=== PATIENT | female | born 1950 | race African-American/Black ===

== ENCOUNTER 2018-04-13 13:32 | Inpatient (IN) | payer OTHER, BC ==
--- NOTE | 2018-04-13 13:53 | PDOC ---
History of Present Illness - General History Source: Patient Exam Limitations: No Limitations - History of Present Illness Initial Comments: 04/13/18 14:35 The patient is a 67 year old female, with a significant PMH of diabetes, asthma , hypertension who presents to the emergency department sent in for fever. Patient states she was going to her hyperbaric treatment but was unable to have treatment secondary to her fever. Patient had her dressing changed yesterday. Patient admits to warmth to her left leg. The patient denies chest pain, shortness of breath, headache and dizziness. Denies chills, nausea, vomit, diarrhea and constipation. Denies dysuria, frequency, urgency and hematuria. Allergies: NKA Past surgical history: tubal ligation Social history: No reported alcohol, drug, or cigarette use. PCP: Dr. Castano <Shira Singleton - Last Filed: 04/13/18 15:06> - General History Source: Patient Exam Limitations: No Limitations <Faby Wheeler - Last Filed: 04/14/18 10:43> - General Chief Complaint: Respiratory Stated Complaint: FEVER Time Seen by Provider: 04/13/18 13:52 Past History <Shira Singleton - Last Filed: 04/13/18 15:06> - Past Medical History Asthma: Yes Cancer: No Cardiac Disorders: No CVA: No COPD: No CHF: No Dementia: No Diabetes: Yes GI Disorders: No Disorders: No HTN: No Hypercholesterolemia: No Liver Disease: No Seizures: No Thyroid Disease: No - Surgical History Abdominal Surgery: No Appendectomy: No Cardiac Surgery: No Cholecystectomy: No Lung Surgery: No Neurologic Surgery: No Orthopedic Surgery: No - Suicide/Smoking/Psychosocial Hx Smoking History: Never smoked Have you smoked in the past 12 months: No <Faby Wheeler - Last Filed: 04/14/18 10:43> - Past Medical History Allergies/Adverse Reactions: Allergies Allergy/AdvReac Type Severity Reaction Status Date / Time No Known Allergies Allergy Verified 04/13/18 14:17 Home Medications: Ambulatory Orders Aspirin [Baby Aspirin] 81 mg PO DAILY 10/29/11 Furosemide [Lasix] 20 mg PO DAILY 10/29/11 Montelukast Na [Singulair] 10 mg PO HS 10/29/11 Gabapentin 1 cap PO TID 07/25/13 Amlodipine Besylate [Norvasc -] 5 mg PO BID 09/11/13 Ascorbic Acid [Vitamin C] 250 mg PO DAILY 09/11/13 Cholecalciferol (Vitamin D3) [Vitamin D] 1,000 unit PO DAILY 09/11/13 Docosahexanoic Acid/Epa [Fish Oil Softgel] 1 each PO DAILY 09/11/13 Glyburide 5 mg PO BID 09/11/13 Ibuprofen [Advil -] 400 mg PO QID PRN 09/11/13 Insulin Glargine,Hum.rec.anlog [Lantus Solostar PEN -] 30 units SCJ DAILY Losartan/Hydrochlorothiazide [Losartan-Hctz 100-25 mg Tab] 1 tab PO DAILY Meloxicam [Mobic -] 15 mg PO DAILY 09/11/13 Tramadol HCl 50 mg PO QID PRN 09/11/13 Vitamin B Complex 1 each PO DAILY 09/11/13 oxyCODONE HCL [Roxicodone -] 5 mg PO Q6H PRN 09/11/13 Clonidine 0.1 mg PO HS 12/26/13 Cyclobenzaprine HCl 10 mg PO HS 10/23/14 Review of Systems - Review of Systems Able to Perform ROS?: Yes Comments:: 04/13/18 15:07 ADULT ROS GENERAL/CONSTITUTIONAL: (+) Fever. (+) Chills. No weakness. HEAD, EYES, EARS, NOSE AND THROAT: No change in vision. No ear pain or discharge. No sore throat. CARDIOVASCULAR: No chest pain or shortness of breath. RESPIRATORY: No cough, wheezing, or hemoptysis. GASTROINTESTINAL: No nausea, vomiting, diarrhea or constipation. GENITOURINARY: No dysuria, frequency, or change in urination. MUSCULOSKELETAL: No joint or muscle swelling or pain. No neck or back pain. SKIN: No rash NEUROLOGIC: No headache, vertigo, loss of consciousness, or change in strength/ sensation. ENDOCRINE: No increased thirst. No abnormal weight change. HEMATOLOGIC/LYMPHATIC: No anemia, easy bleeding, or history of blood clots. ALLERGIC/IMMUNOLOGIC: No hives or skin allergy. <Shira Singleton - Last Filed: 04/13/18 15:06> *Physical Exam - Vital Signs Last Vital Signs Temp Pulse Resp BP Pulse Ox 102.9 F H 111 H 18 161/85 100 04/13/18 13:32 04/13/18 13:32 04/13/18 13:32 04/13/18 13:32 04/13/18 13:32 - Physical Exam Comments: 04/13/18 15:08 ADULT PE GENERAL: The patient is in no acute distress. (+) Morbidly obese. HEAD: Normal with no signs of trauma. EYES: PERRLA, EOMI, sclera anicteric, conjunctiva clear. ENT: Ears normal, nares patent, oropharynx clear without exudates. Moist mucous membranes. NECK: Normal range of motion, supple without lymphadenopathy, JVD, or masses. LUNGS: Breath sounds equal, clear to auscultation bilaterally. No wheezes, and no crackles. HEART: (+) Tachycardic but regular rhythm, normal S1 and S2, no rub or gallop. ( +) systolic murmur. ABDOMEN: Soft, nontender, normoactive bowel sounds. No guarding, no rebound. No masses palpable. EXTREMITIES: Normal range of motion, no edema. No clubbing or cyanosis. No erythema, or tenderness. NEUROLOGICAL: Cranial nerves II through XII grossly intact. Normal speech. No focal neurological deficits. MUSCULOSKELETAL: Back non-tender to palpation, no CVA tenderness SKIN: Warm, Dry, normal turgor, no rashes or lesions noted. <Shira Singleton - Last Filed: 04/13/18 15:06> ED Treatment Course - LABORATORY CBC & Chemistry Diagram: 04/13/18 14:24 04/13/18 14:24 <Shira Singleton - Last Filed: 04/13/18 15:06> - LABORATORY CBC & Chemistry Diagram: 04/14/18 06:15 04/14/18 06:15 <Faby Wheeler - Last Filed: 04/14/18 10:43> Medical Decision Making - Critical Care Time Total Critical Care Time (minutes): 60 Critical Care Statement: The care of this patient involved high complexity decision making to prevent further life threatening deterioration of the patient 's condition and/or to evaluate & treat vital organ system(s) failure or risk of failure. - Medical Decision Making Ms Hanley presents from [facility] due to fevers Pt has a h/o DM, HTN, HLD, chronic lower extremity wounds, recurrent UTI She tells me that she began feeling unwell yesterday She noted left ear pain No chest pain, no cough, no shortness of breath No abdominal tenderness No flank pain wounds dressed by son On exam: Pt is febrile Awake and alert Answers questions appropriately Tachycardiac CTA (limited examination) mild suprapubic tenderness to palpation Lower extremity wounds noted, (+) drainage, malodorous, (+) warmth, erythema 04/13/18 15:49 Labs ordered Vanc and Zosyn ordered IVF ordered Tylenol ordered Xray chest and legs ordered Laboratory Tests 12/08/17 04/13/18 04/13/18 17:01 14:24 14:24 WBC 6.8 19.6 H Hgb 9.0 L 8.3 L Hct 28.4 L 26.8 L Plt Count 353 379 INR 1.14 H VBG pH POC VBG pCO2 POC VBG pO2 Mixed VBG HCO3 BUN Creatinine Random Glucose Lactic Acid Creatine Kinase CK-MB (CK-2) Urine Blood Urine Nitrite Ur Leukocyte Esterase Urine WBC (Auto) Urine RBC (Auto) 04/13/18 04/13/18 04/13/18 14:24 14:24 14:24 WBC Hgb Hct Plt Count INR VBG pH 7.36 POC VBG pCO2 42.9 POC VBG pO2 23.3 L Mixed VBG HCO3 23.7 BUN 30 H Creatinine 1.1 Random Glucose 143 H Lactic Acid 0.8 Creatine Kinase 68 CK-MB (CK-2) < 1.0 Urine Blood Urine Nitrite Ur Leukocyte Esterase Urine WBC (Auto) Urine RBC (Auto) 04/13/18 14:50 WBC Hgb Hct Plt Count INR VBG pH POC VBG pCO2 POC VBG pO2 Mixed VBG HCO3 BUN Creatinine Random Glucose Lactic Acid Creatine Kinase CK-MB (CK-2) Urine Blood 2+ H Urine Nitrite Negative Ur Leukocyte Esterase 2+ H Urine WBC (Auto) 79 Urine RBC (Auto) 30 Twelve-lead EKG was performed and reviewed by me. There is normal sinus rhythm witha tachycardiac rate of 112 bpm. The axis is normal. The intervals are normal - pr:162ms, QRS:80ms, QTc:442ms. There are no ST or T wave abnormalities. Sinus tachycardia SIRS Lactate nml No hypotension Source possibly UTI vs cellulitis <Faby Wheeler - Last Filed: 04/14/18 10:43> *DC/Admit/Observation/Transfer - Attestations Scribe Attestion: 04/13/18 15:09 Documentation prepared by Shira Singleton, acting as medical research assistant for Faby Wheeler MD. <Shira Singleton - Last Filed: 04/13/18 15:06> - Discharge Dispostion Decision to Admit order: Yes <Faby Wheeler - Last Filed: 04/14/18 10:43> Diagnosis at time of Disposition: Cellulitis Qualifiers: Site of cellulitis: extremity Site of cellulitis of extremity: lower extremity Laterality: left Qualified Code(s): L03.116 - Cellulitis of left lower limb - Discharge Dispostion Condition at time of disposition: Stable
[2018-04-13] MEDS ORDERED: ACETAMINOPHEN 1000 MG/100 ML VIAL (NON FORMULARY) IVPB ONE (13:58)
[2018-04-13 14:33] VITALS: BMI 53.5
[2018-04-13] MEDS ORDERED: ACETAMINOPHEN INJECTION 100 ML IVPB ONE (14:42)
[2018-04-13 14:43] LABS: EOS % 0.1 % (0-4.5); HEMATOCRIT 26.8 % (32.4-45.2); HEMOGLOBIN 8.3 GM/dL (10.7-15.3); LYMPH % 1.5 % (8-40); MCH 24.7 pg (25.7-33.7); MCHC 30.9 g/dl (32.0-36.0); MEAN CELL VOLUME 79.8 fl (80-96); MEAN PLT VOLUME 7.2 fl (7.5-11.1); MONO % 3.2 % (3.8-10.2); NEUT % 94.2 % (42.8-82.8); PLATELET COUNT 379 K/MM3 (134-434); RBC 3.36 M/mm3 (3.60-5.2); RDW 16.4 % (11.6-15.6); WHITE BLOOD COUNT 19.6 K/mm3 (4.0-10.0)
[2018-04-13 14:44] LABS: VENOUS PC02 42.9 mmHg (38-52); VENOUS PH 7.36 (7.32-7.42); VENOUS PO2 23.3 mmHg (28-48)
[2018-04-13] MEDS ORDERED: SODIUM CHLORIDE 0.9% 1000 ML INFUS.BAG IV SCH (14:45)
[2018-04-13] MEDS ORDERED: VANCOMYCIN 1,500 MG in DEXTROSE 5%-WATER - 500 ML IVPB ONE (14:48)
[2018-04-13] MEDS ORDERED: PIPERACILLIN/TAZOB 4.5 GM 4.5 GM in DEXTROSE 5%-WATER 100 ML IVPB ONE (14:55)
[2018-04-13] MEDS ORDERED: VANCOMYCIN 1 GRAM (PRE-DOCKED) 1,000 MG/250 ML BAG IVPB ONE (14:55)
[2018-04-13] MEDS ORDERED: PIPERACILLIN/TAZOB 4.5 GM 4.5 GM/100 ML BAG IVPB ONE (14:56)
[2018-04-13 14:57] LABS: URINE APPEARANCE SLCLOUDY; URINE BILIRUBIN NEGATIVE (<2.0 mg/dL); URINE COLOR LTYELLOW; URINE GLUCOSE (UA) NEGATIVE (NEGATIVE); URINE KETONE NEGATIVE (NEGATIVE); URINE LEUK ESTERASE 2+ (NEGATIVE); URINE NITRITE NEGATIVE (NEGATIVE); URINE PROTEIN 2+ (NEGATIVE); URINE UROBILINOGEN NEGATIVE mg/dL (0.2-1.0)
[2018-04-13 14:58] LABS: INR 1.14 (0.83-1.09); PROTHROMBIN TIME (PATIENT) 13.5 SEC (9.7-13.0)
[2018-04-13 15:01] LABS: URINE BACTERIA RARE /hpf (NONE SEEN); URINE MUCUS RARE
[2018-04-13 15:01] LABS: ACTIVATED PTT 32.6 SECONDS (25.2-36.5)
[2018-04-13 15:22] LABS: ALBUMIN 3.1 g/dl (3.4-5.0); ALK PHOS 56 U/L (45-117); ANION GAP 9 MMOL/L (8-16); BILIRUBIN,TOTAL 0.3 mg/dL (0.2-1); BLOOD UREA NITROGEN 30 mg/dL (7-18); CALCIUM 8.8 mg/dL (8.5-10.1); CHLORIDE 106 mmol/L (98-107); CO2 24 mmol/L (21-32); CREATININE 1.1 mg/dL (0.55-1.3); GLUCOSE,RANDOM 143 mg/dL (74-106); POTASSIUM 4.7 mmol/L (3.5-5.1); SGOT/AST 10 U/L (15-37); SGPT/ALT 15 U/L (13-61); SODIUM 139 mmol/L (136-145); TOT PROT 8.5 g/dl (6.4-8.2)
[2018-04-13 15:36] LABS: ANISOCYTOSIS 0; MACROCYTOSIS 0; PLATELET ESTIMATE NORMAL
--- NOTE | 2018-04-13 15:38 | EKG ---
Test Reason : Blood Pressure : / mmHG Vent. Rate : 112 BPM Atrial Rate : 112 BPM P-R Int : 162 ms QRS Dur : 080 ms QT Int : 324 ms P-R-T Axes : 066 -03 066 degrees QTc Int : 442 ms POOR DATA QUALITY, INTERPRETATION MAY BE ADVERSELY AFFECTED SINUS TACHYCARDIA SEPTAL INFARCT , AGE UNDETERMINED ABNORMAL ECG NO PREVIOUS ECGS AVAILABLE Confirmed by RYAN ELY, GURMEET ([id number]) on 04/13/2018 3:37:47 PM Referred By: Confirmed By:GURMEET DAVIS MD
[2018-04-13] MEDS ORDERED: SODIUM CHLORIDE 1,000 ML IV STA (16:02)
[2018-04-13] MEDS ORDERED: morphine CARPU-JECT 4 MG/1 ML DISP.SYRIN IVPUSH ONE (16:28)
[2018-04-13] MEDS ORDERED: morphine SULFATE 4 MG/ML VIAL ONE (16:38)
[2018-04-13] MEDS ORDERED: ONDANSETRON 4 MG/2 ML VIAL IVPUSH PRN (17:56)
--- NOTE | 2018-04-13 18:13 | HP ---
Admitting History and Physical - Primary Care Physician PCP: Deshawn Rockwell - Admission Chief Complaint: I was shaking like a leaf History of Present Illness: Mrs Hanley is a pleasant 67 year old female who was sent in from hyperbaric therapy with fevers. She states that she has chronic swelling of both her legs with chronic wounds. She is followed by Dr Cid for this. She was in her normal state of health until last night. She says she began to feel tired and went to lie down, however at this time she became hot and diaphoretic. This continued through the night and into the morning. She went to hyperbaric and there she says she began to shake significantly. Her temperature was taken and she was found to be febrile, she was immediately sent to the ED for evaluation and admission. Currently she says she is feeling better after receiving IV antibiotics. She says that she was lightheaded once yesterday in the morning when she got out of bed, she attributed this to standing up too fast. She did not pass out and it has not recurred. She says she has off and on chest pressure that does not radiate, she does not know how long this has been going on and cannot tell me more about it. She notes shortness of breath with exertion , again she is vague in her description but it sounds like she has this chronically and it might be worse over the past 2-3 days. She says she has chronic leg swelling and wounds and she does not know if it is getting better or not. She also complains of slight burning on urination. She denies coughing, nausea, vomiting, diarrhea, weakness, or malaise. History Source: Patient Limitations to Obtaining History: No Limitations - Past Medical History Cardiovascular: Yes: HTN, Hyperlipdemia Endocrine: Yes: Diabetes Mellitus - Past Surgical History Past Surgical History: Yes: Amputation (L toe) - Smoking History Smoking history: Never smoked Have you smoked in the past 12 months: No - Alcohol/Substance Use Hx Alcohol Use: No History of Substance Use: reports: None - Social History Usual Living Arrangement: Yes: With Child ADL: Family Assistance History of Recent Travel: No Home Medications - Allergies Allergies/Adverse Reactions: Allergies Allergy/AdvReac Type Severity Reaction Status Date / Time No Known Allergies Allergy Verified 04/13/18 14:17 - Home Medications Home Medications: Ambulatory Orders Aspirin [Baby Aspirin] 81 mg PO DAILY 10/29/11 Furosemide [Lasix] 20 mg PO DAILY 10/29/11 Montelukast Na [Singulair] 10 mg PO HS 10/29/11 Gabapentin 1 cap PO TID 07/25/13 Amlodipine Besylate [Norvasc -] 5 mg PO BID 09/11/13 Ascorbic Acid [Vitamin C] 250 mg PO DAILY 09/11/13 Cholecalciferol (Vitamin D3) [Vitamin D] 1,000 unit PO DAILY 09/11/13 Docosahexanoic Acid/Epa [Fish Oil Softgel] 1 each PO DAILY 09/11/13 Glyburide 5 mg PO BID 09/11/13 Ibuprofen [Advil -] 400 mg PO QID PRN 09/11/13 Insulin Glargine,Hum.rec.anlog [Lantus Solostar PEN -] 30 units SCJ DAILY Losartan/Hydrochlorothiazide [Losartan-Hctz 100-25 mg Tab] 1 tab PO DAILY Meloxicam [Mobic -] 15 mg PO DAILY 09/11/13 Tramadol HCl 50 mg PO QID PRN 09/11/13 Vitamin B Complex 1 each PO DAILY 09/11/13 oxyCODONE HCL [Roxicodone -] 5 mg PO Q6H PRN 09/11/13 Clonidine 0.1 mg PO HS 12/26/13 Cyclobenzaprine HCl 10 mg PO HS 10/23/14 Family Disease History - Family Disease History Family Disease History: CA: Father (prostate), Other: Mother (CVA), Brother ( thyroid nodule) Review of Systems Findings/Remarks: Full review of systems obtained, as per HPI and otherwise negative Physical Examination Vital Signs: Vital Signs Temperature 39.4 C H 04/13/18 13:32 Pulse Rate 111 H 04/13/18 13:32 Respiratory Rate 18 04/13/18 13:32 Blood Pressure 161/85 04/13/18 13:32 O2 Sat by Pulse Oximetry (%) 96 04/13/18 16:24 Constitutional: Yes: No Distress, Calm, Obese (morbid), Poor Hygeine Eyes: Yes: Conjunctiva Clear, EOM Intact, PERRL HENT: Yes: Atraumatic, Normocephalic Cardiovascular: Yes: Regular Rate and Rhythm. No: Gallop, Murmur, Rub Respiratory: Yes: Regular, CTA Bilaterally. No: Rales, Rhonchi, Wheezes Gastrointestinal: Yes: Normal Bowel Sounds, Soft. No: Distention, Tenderness Extremities: Yes: Other (ulceration, maladorous) Edema: LLE: 3+, RLE: 3+ Labs: CBC, BMP 04/13/18 14:24 04/13/18 14:24 Imaging - Results Chest X-ray: Report Reviewed, Image Reviewed X-ray: Image Reviewed (? calcification, awaiting official read. Call placed to radiology) Problem List - Problems (1) Sepsis Assessment/Plan: -possible UTI, but most likely from bilateral wounds on legs -ID consult, place on vancomycin and zosyn -hydration with IVF -prn tylenol for fevers -follow up cultures (wound, blood, urine) -monitor on telemetry Code(s): A41.9 - SEPSIS, UNSPECIFIED ORGANISM (2) Cellulitis Assessment/Plan: -with infected chronic wounds -consult wound care -x-ray reviewed, awaiting official read -continue vancomycin and zosyn Code(s): L03.90 - CELLULITIS, UNSPECIFIED Qualifiers: Site of cellulitis: extremity Site of cellulitis of extremity: lower extremity Laterality: left Qualified Code(s): L03.116 - Cellulitis of left lower limb (3) Foot ulcer, left Assessment/Plan: -as above Code(s): L97.529 - NON-PRESSURE CHRONIC ULCER OTH PRT LEFT FOOT W UNSP SEVERITY (4) Diabetes Assessment/Plan: -diabetic diet -levemir 15 units bid (on lantus 30 units at home) -FSBS and SSI Code(s): E11.9 - TYPE 2 DIABETES MELLITUS WITHOUT COMPLICATIONS Qualifiers: Diabetes mellitus type: type 2 Diabetes mellitus medical terminologist insulin use: with longterm use Diabetes mellitus complication status: with skin complications Diabetes mellitus complication detail: with other skin ulcer Qualified Code(s): E11.622 - Type 2 diabetes mellitus with other skin ulcer; Z79.4 - jail (current) use of insulin (5) HTN (hypertension) Assessment/Plan: -continue amlodipine and losartan HCT -monitor for hypotension Code(s): I10 - ESSENTIAL (PRIMARY) HYPERTENSION (6) Chest pressure Assessment/Plan: -suspect atypical chest pain -first set of troponins negative -cardiac enzymes q8h x3 -monitor on telemetry -cardiology consult Code(s): R07.89 - OTHER CHEST PAIN (7) Leg edema Assessment/Plan: -chronic -appears to be lymphedema, however on lasix -will check ECHO for possible heart failure component -holding lasix currently as hydrating -if secondary to CHF, will need to closely monitor IVF Code(s): R60.0 - LOCALIZED EDEMA (8) Morbid obesity Assessment/Plan: -outpatient regimen for weight loss Code(s): E66.01 - MORBID (SEVERE) OBESITY DUE TO EXCESS CALORIES (9) Chronic pain Assessment/Plan: -continue home regimen Code(s): G89.29 - OTHER CHRONIC PAIN Qualifiers: Chronic pain type: chronic pain syndrome Qualified Code(s): G89.4 - Chronic pain syndrome
[2018-04-13] MEDS ORDERED: KETOROLAC TROMETHAMINE 15 MG/ML VIAL IVPUSH ONE (19:22)
[2018-04-13] MEDS ORDERED: KETOROLAC TROMETHAMINE 15 MG/ML VIAL ONE (20:12)
[2018-04-13] MEDS ORDERED: CYCLOBENZAPRINE HCL 5 MG TABLET PO SCH (22:00)
[2018-04-14] MEDS: cloNIDine HCL 0.1 MG TABLET PO SCH (00:32)
[2018-04-14] MEDS: INSULIN (LEVEMIR) 100 UNITS/ML UNITS SQ SCH (00:33)
[2018-04-14] MEDS: GABAPENTIN 100 MG CAPSULE (FP) PO SCH ×3 (00:33→15:26)
[2018-04-14] MEDS: MONTELUKAST NA 10 MG TABLET PO SCH (00:34)
[2018-04-14] MEDS: amLODIPine BESYLATE 5 MG TABLET (FP) PO SCH ×2 (00:34→10:21)
[2018-04-14] MEDS: ACETAMINOPHEN 325 MG TABLET (FP) PO PRN ×2 (00:35→09:04)
[2018-04-14] MEDS ORDERED: CYCLOBENZAPRINE HCL 10 MG TABLET (FP) ONE ×2 (01:07→23:32)
[2018-04-14] MEDS ORDERED: cloNIDine HCL 0.1 MG TABLET ONE ×2 (01:07→23:31)
[2018-04-14] MEDS ORDERED: ACETAMINOPHEN 325 MG TABLET (FP) ONE ×2 (01:07→08:59)
[2018-04-14] MEDS ORDERED: GABAPENTIN 100 MG CAPSULE (FP) ONE ×2 (01:07→23:33)
[2018-04-14] MEDS ORDERED: amLODIPine BESYLATE 5 MG TABLET (FP) ONE ×3 (01:07→23:31)
[2018-04-14] MEDS ORDERED: PIPERACILLIN/TAZOB 4.5 GM 4.5 GM/100 ML BAG IVPB ONE (01:08)
[2018-04-14] MEDS ORDERED: MONTELUKAST NA 10 MG TABLET ONE (01:08)
[2018-04-14] MEDS ORDERED: INSULIN (LEVEMIR) 100 UNITS/ML UNITS SQ ONE ×3 (01:09→23:35)
[2018-04-14] MEDS ORDERED: INSULIN (NOVOLOG) ASPART 100 UNITS/ML 10ML VIAL ONE ×2 (01:09→15:18)
[2018-04-14] MEDS: INSULIN SLIDING SCALE (NOVOLOG) 1 VIAL SQ SCH ×3 (01:34→17:36)
[2018-04-14] MEDS: PIPERACILLIN/TAZOB 4.5 GM 4.5 GM in DEXTROSE 5%-WATER 100 ML IVPB SCH ×4 (01:34→18:57)
[2018-04-14 06:33] LABS: HEMATOCRIT 24.1 % (32.4-45.2); HEMOGLOBIN 7.4 GM/dL (10.7-15.3); MCH 24.7 pg (25.7-33.7); MCHC 30.8 g/dl (32.0-36.0); MEAN PLT VOLUME 7.5 fl (7.5-11.1); PLATELET COUNT 313 K/MM3 (134-434); RBC 3.01 M/mm3 (3.60-5.2); RDW 16.4 % (11.6-15.6); WHITE BLOOD COUNT 20.1 K/mm3 (4.0-10.0)
[2018-04-14 07:09] LABS: ANION GAP 8 MMOL/L (8-16); BLOOD UREA NITROGEN 34 mg/dL (7-18); CALCIUM 8.4 mg/dL (8.5-10.1); CHLORIDE 106 mmol/L (98-107); CO2 25 mmol/L (21-32); CREATININE 1.4 mg/dL (0.55-1.3); GLUCOSE,RANDOM 95 mg/dL (74-106); POTASSIUM 4.5 mmol/L (3.5-5.1); SODIUM 139 mmol/L (136-145)
[2018-04-14] MEDS ORDERED: PATIENT'S OWN MEDICATION (NON-FORMULARY) (Docosahexanoic Acid/Epa [Fish Oil Softgel] 1 EAC PO SCH (10:00)
[2018-04-14] MEDS ORDERED: ENOXAPARIN NA (PORCINE) 40 MG/0.4 ML DISP.SYRIN SQ SCH (10:00)
[2018-04-14] MEDS ORDERED: PATIENT'S OWN MEDICATION (NON-FORMULARY) (Meloxicam 15 MG) PO SCH (10:00)
[2018-04-14] MEDS ORDERED: PATIENT'S OWN MEDICATION (NON-FORMULARY) (Losartan/Hydrochlorothiazide [Losartan-Hctz 100- PO SCH (10:00)
[2018-04-14] MEDS: VITAMIN B COMPLEX W/C COMBO TABLET (FP) PO SCH (10:21)
[2018-04-14] MEDS: ASPIRIN 81 MG CHEWABLE TABLETS PO SCH (10:21)
[2018-04-14] MEDS: ASCORBIC ACID 250 MG TABLET (FP) PO SCH (10:21)
[2018-04-14] MEDS: LOSARTAN 50MG/HCTZ 12.5MG 1 TAB (FP) PO SCH (10:21)
[2018-04-14] MEDS: VANCOMYCIN 1,500 MG in DEXTROSE 5%-WATER - 500 ML IVPB SCH (10:44)
--- NOTE | 2018-04-14 11:11 | ECHO ---
Name: WADE ROUSE Exam:Adult Echocardiogram Study Date: 04/14/2018 07:22 AM Age: 67 yrs Reason For Study: MRSA leg edema chest pain Height: 67 in Weight: 342 lb BSA: 2.5 m2 MMode/2D Measurements & Calculations IVSd: 1.3 cm Ao root diam: 3.0 cm LVIDd: 5.1 cm LA dimension: 4.2 cm LVIDs: 2.8 cm ACS: 1.9 cm LVPWd: 1.2 cm IVSs: 1.5 cm LVPWs: 1.3 cm EDV(Teich): 125.6 ml ESV(Teich): 28.8 ml Doppler Measurements & Calculations MV E max harry: 78.0 cm/sec Ao V2 max: 182.8 cm/sec MV A max harry: 97.0 cm/sec Ao max P.4 mmHg MV E/A: 0.80 Ao V2 mean: 141.3 cm/sec Ao mean P.2 mmHg Ao V2 VTI: 33.3 cm MR max harry: 445.2 cm/sec TR max harry: 302.0 cm/sec MR max P.4 mmHg TR max P.5 mmHg PA V2 max: 151.3 cm/sec Med Peak E' Harry: 5.1 cm/sec PA max P.2 mmHg Med E/e': 15.4 PA V2 mean: 107.6 cm/sec Lat Peak E' Harry: 4.3 cm/sec PA mean P.2 mmHg Lat E/e': 18.2 PA V2 VTI: 26.9 cm Procedure A complete two-dimensional transthoracic echocardiogram was performed (2D, M-mode, Doppler and color flow Doppler). The study was technically difficult with many images being suboptimal in quality. Left Ventricle There is mild concentric left ventricular hypertrophy. The left ventricular ejection fraction is norm al. Ejection Fraction = 60-65%. The left ventricular wall motion is normal. Right Ventricle The right ventricle is not well visualized. The right ventricle is grossly normal size. The right tiffanie tricular systolic function is grossly normal. Atria Normal left and right atrial size and function. Mitral Valve There is no mitral regurgitation noted. Tricuspid Valve There is trace tricuspid regurgitation. There was insufficient TR detected to calculate RV systolic p ressure. Aortic Valve No hemodynamically significant valvular aortic stenosis. No aortic regurgitation is present. Pulmonic Valve There is no pulmonic valvular regurgitation. Great Vessels The aortic root is normal size. Pericardium/Pleura There is no pericardial effusion. Interpretation Summary The study was technically difficult with many images being suboptimal in quality. There is mild concentric left ventricular hypertrophy. The left ventricular ejection fraction is normal. The left ventricular wall motion is normal. The right ventricle is not well visualized. The right ventricle is grossly normal size. The right ventricular systolic function is grossly normal. There is trace tricuspid regurgitation. MD Vadim Pérez 04/14/2018 11:10 AM
[2018-04-14] MEDS: CHOLECALCIFEROL (VITAMIN D3) 1,000 UNIT TABLET (FP) PO SCH (11:23)
--- NOTE | 2018-04-14 11:51 | CON.CARD ---
Cardiology Consult (text) - Consultation Consultation Note: cc: fever hpi: 67 f hx morbid obesity, venous insuff/edema, chronic leg wounds, dm, htn, anemia, here with fever. Being treated by vascular with hyperbaric chamber for leg wounds. Yesterday she felt fever so came to ER. Found to have sepsis, likely from cellulitis of leg. Also yesterday she noticed a central chest heaviness that has decreased today. No sob palps dizzy loc pnd orthopnea. No hx hrt dz. pmh: per hpi psh: tubal ligation social: no tob fam: no premature cad, scd ros: per hpi; no nvd, gib hematuria dysuria muscle pain wt loss meds: Home Medications Medication Instructions Recorded Aspirin [Baby Aspirin] 81 mg PO DAILY 10/29/11 Furosemide [Lasix] 20 mg PO DAILY 10/29/11 Montelukast Na [Singulair] 10 mg PO HS 10/29/11 Gabapentin 1 cap PO TID 07/25/13 Amlodipine Besylate [Norvasc -] 5 mg PO BID 09/11/13 Ascorbic Acid [Vitamin C] 250 mg PO DAILY 09/11/13 Cholecalciferol (Vitamin D3) 1,000 unit PO DAILY 09/11/13 [Vitamin D] Docosahexanoic Acid/Epa [Fish Oil 1 each PO DAILY 09/11/13 Softgel] Glyburide 5 mg PO BID 09/11/13 Ibuprofen [Advil -] 400 mg PO QID PRN 09/11/13 Insulin Glargine,Hum.rec.anlog 30 units SCJ DAILY 09/11/13 [Lantus Solostar PEN -] Losartan/Hydrochlorothiazide 1 tab PO DAILY 09/11/13 [Losartan-Hctz 100-25 mg Tab] Meloxicam [Mobic -] 15 mg PO DAILY 09/11/13 Tramadol HCl 50 mg PO QID PRN 09/11/13 Vitamin B Complex 1 each PO DAILY 09/11/13 oxyCODONE HCL [Roxicodone -] 5 mg PO Q6H PRN 09/11/13 Clonidine 0.1 mg PO HS 12/26/13 Cyclobenzaprine HCl 10 mg PO HS 10/23/14 pe: Vital Signs Period Temp Pulse Resp BP Sys/Petersen Pulse Ox Last 24 Hr 97.6 F-102.9 F 85-111 16-19 139-186/52-85 96-100 nad no jvd rrr s1s2 no mrg cta bl nl eff aaox3 trace le edema, nonpitting edema, chronic stasis changes of skin abd nt nd pos bs no jaundice diaphoresis pos dp pt no carotid bruits Laboratory Last Values WBC 20.1 K/mm3 (4.0-10.0) H 04/14/18 06:15 RBC 3.01 M/mm3 (3.60-5.2) L 04/14/18 06:15 Hgb 7.4 GM/dL (10.7-15.3) L 04/14/18 06:15 Hct 24.1 % (32.4-45.2) L 04/14/18 06:15 MCV 80.0 fl (80-96) 04/14/18 06:15 MCH 24.7 pg (25.7-33.7) L 04/14/18 06:15 MCHC 30.8 g/dl (32.0-36.0) L 04/14/18 06:15 RDW 16.4 % (11.6-15.6) H 04/14/18 06:15 Plt Count 313 K/MM3 (134-434) 04/14/18 06:15 MPV 7.5 fl (7.5-11.1) 04/14/18 06:15 Absolute Neuts (auto) 18.5 K/mm3 (1.5-8.0) H 04/13/18 14:24 Neutrophils % 94.2 % (42.8-82.8) H D 04/13/18 14:24 Neutrophils % (Manual) 90.0 % (42.8-82.8) H 04/13/18 14:24 Band Neutrophils % 5.0 % 04/13/18 14:24 Lymphocytes % 1.5 % (8-40) L D 04/13/18 14:24 Lymphocytes % (Manual) 1.0 % (8-40) L 04/13/18 14:24 Monocytes % 3.2 % (3.8-10.2) L 04/13/18 14:24 Monocytes % (Manual) 2 % (3.8-10.2) L 04/13/18 14:24 Eosinophils % 0.1 % (0-4.5) D 04/13/18 14:24 Eosinophils % (Manual) 0.0 % (0-4.5) 04/13/18 14:24 Basophils % 1.0 % (0-2.0) 04/13/18 14:24 Basophils % (Manual) 0.0 % (0-2.0) 04/13/18 14:24 Myelocytes % (Man) 1 % (0-2) 04/13/18 14:24 Promyelocytes % (Man) 0 % (0-2) 04/13/18 14:24 Blast Cells % (Manual) 0 % (0-0) 04/13/18 14:24 Nucleated RBC % 0 % (0-0) 04/13/18 14:24 Metamyelocytes 1 % (0-2) 04/13/18 14:24 Hypochromia 0 04/13/18 14:24 Platelet Estimate Normal 04/13/18 14:24 Polychromasia 0 04/13/18 14:24 Poikilocytosis 0 04/13/18 14:24 Anisocytosis 0 04/13/18 14:24 Microcytosis 3+ 04/13/18 14:24 Macrocytosis 0 04/13/18 14:24 ESR 118 mm/hr (0-30) H 04/14/18 06:15 PT with INR 13.50 SEC (9.7-13.0) H 04/13/18 14:24 INR 1.14 (0.83-1.09) H 04/13/18 14:24 PTT (Actin FS) 32.6 SECONDS (25.2-36.5) 04/13/18 14:24 VBG pH 7.36 (7.32-7.42) 04/13/18 14:24 POC VBG pCO2 42.9 mmHg (38-52) 04/13/18 14:24 POC VBG pO2 23.3 mmHg (28-48) L 04/13/18 14:24 Mixed VBG HCO3 23.7 meq/L (19-25) 04/13/18 14:24 Sodium 139 mmol/L (136-145) 04/14/18 06:15 Potassium 4.5 mmol/L (3.5-5.1) 04/14/18 06:15 Chloride 106 mmol/L (98-107) 04/14/18 06:15 Carbon Dioxide 25 mmol/L (21-32) 04/14/18 06:15 Anion Gap 8 MMOL/L (8-16) 04/14/18 06:15 BUN 34 mg/dL (7-18) H 04/14/18 06:15 Creatinine 1.4 mg/dL (0.55-1.3) H 04/14/18 06:15 Creat Clearance w eGFR 37.51 (>60) 04/14/18 06:15 POC Glucometer 138.15792 UNITS (80-120) 04/14/18 05:13 Random Glucose 95 mg/dL (74-106) 04/14/18 06:15 Hemoglobin A1c % 6.4 % (4.2-6.3) H 04/14/18 06:15 Lactic Acid 0.8 mmol/L (0.4-2.0) 04/13/18 14:24 Calcium 8.4 mg/dL (8.5-10.1) L 04/14/18 06:15 Phosphorus 3.0 mg/dL (2.5-4.9) 04/14/18 06:15 Magnesium 2.0 mg/dL (1.8-2.4) 04/14/18 06:15 Total Bilirubin 0.3 mg/dL (0.2-1) 04/13/18 14:24 AST 10 U/L (15-37) L 04/13/18 14:24 ALT 15 U/L (13-61) 04/13/18 14:24 Alkaline Phosphatase 56 U/L (45-117) 04/13/18 14:24 Creatine Kinase 126 IU/L (26-192) 04/14/18 06:15 CK-MB (CK-2) < 1.0 ng/mL (0.5-3.6) 04/13/18 14:24 Troponin I 1.62 ng/ml (0.00-0.05) H* 04/14/18 06:15 C-Reactive Protein 16.6 MG/DL (0.00-0.3) H 04/14/18 06:15 Total Protein 8.5 g/dl (6.4-8.2) H 04/13/18 14:24 Albumin 3.1 g/dl (3.4-5.0) L 04/13/18 14:24 Urine Color Ltyellow 04/13/18 14:50 Urine Appearance Slcloudy 04/13/18 14:50 Urine pH 5.0 (5.0-8.0) 04/13/18 14:50 Ur Specific Carroll 1.011 (1.010-1.035) 04/13/18 14:50 Urine Protein 2+ (NEGATIVE) H 04/13/18 14:50 Urine Glucose (UA) Negative (NEGATIVE) 04/13/18 14:50 Urine Ketones Negative (NEGATIVE) 04/13/18 14:50 Urine Blood 2+ (NEGATIVE) H 04/13/18 14:50 Urine Nitrite Negative (NEGATIVE) 04/13/18 14:50 Urine Bilirubin Negative (<2.0 mg/dL) 04/13/18 14:50 Urine Urobilinogen Negative mg/dL (0.2-1.0) 04/13/18 14:50 Ur Leukocyte Esterase 2+ (NEGATIVE) H 04/13/18 14:50 Urine WBC (Auto) 79 /hpf (3-5) 04/13/18 14:50 Urine RBC (Auto) 30 /hpf (0-3) 04/13/18 14:50 Urine Bacteria Rare /hpf (NONE SEEN) 04/13/18 14:50 Urine Mucus Rare 04/13/18 14:50 Blood Type O POSITIVE 04/14/18 09:23 Antibody Screen Negative 04/14/18 09:23 Crossmatch See Detail 04/14/18 09:23 cxr: clear lungs ecg: sr, nl intervals, no ischemic changes echo 03/2018: mild lvh, nl lv/rv, no sig valve path a/p: 67 f hx morbid obesity, venous insuff/edema, chronic leg wounds, dm, htn, anemia, here with fever. sepsis, cellulitis: -abx per PMD, ID venous insuff/le edema: -on lasix at home, holding here due to michelle likely from sepsis htn: -cont home meds anemia: -pt has baseline anemia but hgb dropped into 7's today, no obvious bleeding, may just be dilutional from ivfs she got. getting prbcs, monitor hgb NSTEMI: -trop was normal then repeat increased to 1.6. Possibly just related to sepsis and michelle but she did mention chest pressure and the jump from normal to 1.6 may be consistent with ACS. ECG and echo unremarkable. Already getting asa. Will start hep gtt for 72 hours for nstemi. Will hold off on plavix for now given her hgb in 7s. Monitor hgb. Tele. Trend trops. Started lipitor.
[2018-04-14] MEDS: glyBURIDE 5 MG TABLET (UD) PO SCH ×2 (12:07→17:24)
[2018-04-14] MEDS ORDERED: HEPARIN NA (PORCINE) 5,000 UNITS/ML 1ML VIAL ONE ×3 (12:36→18:54)
[2018-04-14] MEDS ORDERED: HEPARIN INFUSION - 25,000 UNITS/500 ML INFUS.BAG IVPB ONE (12:36)
[2018-04-14] MEDS: HEPARIN - 25,000 UNIT in SODIUM CHLORIDE 495 ML IV SCH (12:44)
[2018-04-14] MEDS: HEPARIN NA (PORCINE) 5,000 UNITS/ML 1ML VIAL IVPUSH PRN ×2 (12:44→18:56)
--- NOTE | 2018-04-14 13:53 | PN ---
Progress Note (short form) - Note Progress Note: ID Consult dictated Bacteremia/ sepsis, likely secondary to skin source UTI Morbid obesity Pending culture results, continue vancomycin/ zosyn
--- NOTE | 2018-04-14 14:55 | CONS ---
DATE OF CONSULTATION: DATE OF DICTATION: 04/14/2018 HISTORY OF PRESENT ILLNESS: The patient is a 67-year-old female evaluated for positive blood cultures. The patient has a history of chronic stasis ulcers for which [facility]. She had been undergoing hyperbaric oxygen treatments. While at the hyperbaric facility, she developed shaking chills and was noted to have fever. She was transferred to the emergency room where blood cultures were obtained. They are now positive for gram-positive cocci in chains and clusters. The patient was empirically given vancomycin and Zosyn. The patient was chronic bilateral lower extremity stasis ulcers with malodorous drainage. She had also complained of some left ear pain. She denies any dysuria or hematuria. She has no complaints of chest pain, shortness of breath, cough, sputum production, vomiting or diarrhea. PAST MEDICAL HISTORY: Positive for morbid obesity, diabetes mellitus, asthma, hypertension. PAST SURGICAL HISTORY: Status post tubal ligation. ALLERGIES: No known allergies. MEDICATIONS: Clonidine, aspirin, Lasix, Singulair, Neurontin, Norvasc, Glyburide, Advil, hydrochlorothiazide, tramadol. SOCIAL HISTORY: She lives at home in the community. She is a nonsmoker. REVIEW OF SYSTEMS: Neurologic: No loss of consciousness, seizure activity or focal weakness. Cardiac: Negative for chest pain or palpitations. Respiratory: Negative for cough or sputum production. Gastrointestinal: Negative for vomiting or diarrhea. Genitourinary: Negative for dysuria or hematuria. LABORATORY DATA: White count 20,000 with left shift, hematocrit 24.1, platelet count 313, creatinine 1.4, lactic acid 0.8, liver enzymes within normal limits. A urinalysis shows 79 white cells. 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 A chest x-ray is negative for infiltrate. PHYSICAL EXAMINATION: General: The patient is awake and alert. She is morbidly obese. In no acute distress. Vital Signs: Temperature 99.9, pulse 76 and regular, blood pressure 171/56, respiratory rate 20 per minute. T-max of 102.5. HEENT:: Sclerae anicteric. Heart: Heart sounds S1, S2. Lungs: Clear. Abdomen: Soft, obese, nontender. Extremities: There is bilateral lower extremity edema and bilateral lower extremity leg ulcers with malodorous serious drainage. The legs are warm. There is chronic venous stasis dermatitis and hyperpigmentation but no erythema is noted. IMPRESSION: 1. Bacteremia/sepsis, likely secondary to skin source. 2. Infected chronic venous stasis ulcers. 3. Urinary tract infection. 4. Marked leukocytosis and fever. PLAN: 1. Await culture results. 2. Antibiotic coverage with vancomycin and Zosyn. 3. Local wound care. 4. Will follow. Thank you for the kind referral. MARYURI MARTIN M.D. [id number]
[2018-04-14] MEDS ORDERED: traMADol HCL 50 MG TABLET ONE (15:20)
[2018-04-14] MEDS: traMADol HCL 50 MG TABLET PO PRN (15:23)
--- NOTE | 2018-04-14 15:33 | PN ---
Progress Note, Physician Chief Complaint: Ms Hanley says her legs are hurting and she did not sleep well last night. Denies cp, sob, n/v. - Current Medication List Current Medications: Active Medications Acetaminophen (Tylenol -) 650 mg PO Q6H PRN PRN Reason: FEVER Last Admin: 04/14/18 09:04 Dose: 650 mg Amlodipine Besylate (Norvasc -) 5 mg PO BID [facility] Last Admin: 04/14/18 10:21 Dose: 5 mg Ascorbic Acid (Vitamin C -) 250 mg PO DAILY [facility] Last Admin: 04/14/18 10:21 Dose: 250 mg Aspirin (Asa -) 81 mg PO DAILY [facility] Last Admin: 04/14/18 10:21 Dose: 81 mg Atorvastatin Calcium (Lipitor -) 40 mg PO HS [facility] Cholecalciferol (Vitamin D3 -) 1,000 unit PO DAILY [facility] Last Admin: 04/14/18 11:23 Dose: 1,000 unit Clonidine (Catapres -) 0.1 mg PO HS [facility] Last Admin: 04/14/18 00:32 Dose: 0.1 mg Cyclobenzaprine HCl (Flexeril -) 10 mg PO HS [facility] Gabapentin (Neurontin -) 100 mg PO TID [facility] Last Admin: 04/14/18 00:33 Dose: 100 mg Glyburide (Diabeta -) 5 mg PO BIDAC [facility] Last Admin: 04/14/18 12:07 Dose: Not Given HCTZ/Losartan Potassium (Hyzaar -) 2 tab PO DAILY [facility] Last Admin: 04/14/18 10:21 Dose: 2 tab Heparin Sodium (Porcine) (Heparin -) 1,000 unit IVPUSH PRN PRN PRN Reason: Heparin Heparin Sodium (Porcine) (Heparin -) 5,000 unit IVPUSH PRN PRN PRN Reason: Heparin Last Admin: 04/14/18 12:44 Dose: 5,000 unit Vancomycin HCl 1,500 mg/ (Dextrose) 500 mls @ 166.667 mls/hr IVPB Q12H [facility]; Protocol Last Admin: 04/14/18 10:44 Dose: 166.667 mls/hr Piperacillin Sod/Tazobactam (Sod 4.5 gm/ Dextrose) 100 mls @ 200 mls/hr IVPB Q8H-IV [facility]; Protocol Last Admin: 11/01/18 14:15 Dose: 200 mls/hr Heparin Sodium (Porcine) 25, (000 unit/ Sodium Chloride) 500 mls @ 20 mls/hr IV TITR [facility]; Protocol Last Admin: 04/14/18 12:44 Dose: 1,000 unit/hr, 20 mls/hr Insulin Aspart (Novolog Vial Sliding Scale -) 1 vial SQ ACHS [facility]; Protocol Last Admin: 04/14/18 01:34 Dose: 2 unit Insulin Detemir (Levemir Vial) 15 units SQ 0700,2200 [facility] Last Admin: 04/14/18 00:33 Dose: 15 unit Montelukast Sodium (Singulair -) 10 mg PO HS [facility] Last Admin: 04/14/18 00:34 Dose: 10 mg Multivitamins (Total B With C -) 1 each PO DAILY [facility] Last Admin: 04/14/18 10:21 Dose: 1 each Non-Formulary Medication (Docosahexanoic Acid/Epa [Fish Oil Softgel]) 1 each PO DAILY [facility] Non-Formulary Medication (Meloxicam) 15 mg PO DAILY [facility] Ondansetron HCl (Zofran Injection) 4 mg IVPUSH Q6H PRN PRN Reason: NAUSEA Tramadol HCl (Ultram -) 50 mg PO Q6H PRN PRN Reason: PAIN 4-6 - Objective Vital Signs: Vital Signs Temperature 37.7 C H 04/14/18 14:29 Pulse Rate 82 04/14/18 14:29 Respiratory Rate 18 04/14/18 14:29 Blood Pressure 155/51 L 04/14/18 14:29 O2 Sat by Pulse Oximetry (%) 96 04/14/18 14:29 Constitutional: Yes: No Distress, Calm, Obese Cardiovascular: Yes: Regular Rate and Rhythm. No: Gallop, Murmur, Rub Respiratory: Yes: Regular, CTA Bilaterally. No: Rales, Rhonchi, Wheezes Gastrointestinal: Yes: Normal Bowel Sounds, Soft. No: Distention, Tenderness Extremities: Yes: WNL Edema: No Labs: CBC, BMP 04/14/18 06:15 04/14/18 06:15 INR, PTT INR 1.14 (0.83-1.09) H 04/13/18 14:24 Problem List - Problems (1) Sepsis Code(s): A41.9 - SEPSIS, UNSPECIFIED ORGANISM (2) Cellulitis Code(s): L03.90 - CELLULITIS, UNSPECIFIED Qualifiers: Site of cellulitis: extremity Site of cellulitis of extremity: lower extremity Laterality: left Qualified Code(s): L03.116 - Cellulitis of left lower limb (3) Foot ulcer, left Code(s): L97.529 - NON-PRESSURE CHRONIC ULCER OTH PRT LEFT FOOT W UNSP SEVERITY (4) Diabetes Code(s): E11.9 - TYPE 2 DIABETES MELLITUS WITHOUT COMPLICATIONS Qualifiers: Diabetes mellitus type: type 2 Diabetes mellitus long lines operator insulin use: with long lines operator use Diabetes mellitus complication status: with skin complications Diabetes mellitus complication detail: with other skin ulcer Qualified Code(s): E11.622 - Type 2 diabetes mellitus with other skin ulcer; Z79.4 - detention (current) use of insulin (5) HTN (hypertension) Code(s): I10 - ESSENTIAL (PRIMARY) HYPERTENSION (6) Leg edema Code(s): R60.0 - LOCALIZED EDEMA (7) Morbid obesity Code(s): E66.01 - MORBID (SEVERE) OBESITY DUE TO EXCESS CALORIES (8) Chronic pain Code(s): G89.29 - OTHER CHRONIC PAIN Qualifiers: Chronic pain type: chronic pain syndrome Qualified Code(s): G89.4 - Chronic pain syndrome (9) NSTEMI (non-ST elevated myocardial infarction) Code(s): I21.4 - NON-ST ELEVATION (NSTEMI) MYOCARDIAL INFARCTION Assessment/Plan (1) Sepsis Assessment/Plan: -most likely secondary to UTI -with positive blood cultures -case d/w ID -continue vancomycin and zosyn -continue IVF Code(s): A41.9 - SEPSIS, UNSPECIFIED ORGANISM (2) Cellulitis Assessment/Plan: -wound care consulted and awaiting recommendations -continue vancomcyin secondary to h/o MRSA -continue zosyn since patient is diabetic and needs pseudomonas coverage Code(s): L03.90 - CELLULITIS, UNSPECIFIED Qualifiers: Site of cellulitis: extremity Site of cellulitis of extremity: lower extremity Laterality: left Qualified Code(s): L03.116 - Cellulitis of left lower limb (3) Foot ulcer, left Assessment/Plan: -as above Code(s): L97.529 - NON-PRESSURE CHRONIC ULCER OTH PRT LEFT FOOT W UNSP SEVERITY (4) Diabetes Assessment/Plan: -diabetic diet -continue levemir 15 units bid -continue FSBS and SSI -may need adjustment, will monitor FSBS and determine insulin coverage needed -may need increased coverage in the short term secondary to stress and antibiotics being in dextrose Code(s): E11.9 - TYPE 2 DIABETES MELLITUS WITHOUT COMPLICATIONS Qualifiers: Diabetes mellitus type: type 2 Diabetes mellitus skilled nursing insulin use: with long lines operator use Diabetes mellitus complication status: with skin complications Diabetes mellitus complication detail: with other skin ulcer Qualified Code(s): E11.622 - Type 2 diabetes mellitus with other skin ulcer; Z79.4 - detention (current) use of insulin (5) HTN (hypertension) Assessment/Plan: -continue amlodipine and losartan HCT -monitor Code(s): I10 - ESSENTIAL (PRIMARY) HYPERTENSION (6) NSTEMI Assessment/Plan: -troponin positive -case d/w Dr Pérez -will start on heparin gtt -medical management Code(s): R07.89 - OTHER CHEST PAIN (7) Leg edema Assessment/Plan: -ECHO reviewed, no sign of CHF -leg edema secondary to lymphedema -holding lasix secondary to sepsis Code(s): R60.0 - LOCALIZED EDEMA (8) Morbid obesity Assessment/Plan: -outpatient regimen for weight loss Code(s): E66.01 - MORBID (SEVERE) OBESITY DUE TO EXCESS CALORIES (9) Chronic pain Assessment/Plan: -continue home regimen Code(s): G89.29 - OTHER CHRONIC PAIN Qualifiers: Chronic pain type: chronic pain syndrome Qualified Code(s): G89.4 - Chronic pain syndrome (10) Anemia -chronic, but suspect some aspect of dilution -however with NSTEMI, will transfuse patient -monitor
--- NOTE | 2018-04-14 15:55 | CONSULT ---
<Luis Barton - Last Filed: 04/14/18 15:26> - Consultation REQUESTING PROVIDER: CONSULT REQUEST: We have been asked to surgically evaluate this patient for bilateral leg ulcers PCP:Kalia Dumont MD HISTORY OF PRESENT ILLNESS: 67yo F with long history of bilateral venous stasis ulcer, pt is known to Dr. Khan and the wound care center. Pt was supposed to be seen yesterday in clinic but was sent the the ED for fevers. Pt denies any major changes in her wounds. Has been using silver aginate and compression dressings. PMHx: DM, HTN, Home Medications Medication Instructions Recorded Aspirin [Baby Aspirin] 81 mg PO DAILY 10/29/11 Furosemide [Lasix] 20 mg PO DAILY 10/29/11 Montelukast Na [Singulair] 10 mg PO HS 10/29/11 Gabapentin 1 cap PO TID 07/25/13 Amlodipine Besylate [Norvasc -] 5 mg PO BID 09/11/13 Ascorbic Acid [Vitamin C] 250 mg PO DAILY 09/11/13 Cholecalciferol (Vitamin D3) 1,000 unit PO DAILY 09/11/13 [Vitamin D] Docosahexanoic Acid/Epa [Fish Oil 1 each PO DAILY 09/11/13 Softgel] Glyburide 5 mg PO BID 09/11/13 Ibuprofen [Advil -] 400 mg PO QID PRN 09/11/13 Insulin Glargine,Hum.rec.anlog 30 units SCJ DAILY 09/11/13 [Lantus Solostar PEN -] Losartan/Hydrochlorothiazide 1 tab PO DAILY 09/11/13 [Losartan-Hctz 100-25 mg Tab] Meloxicam [Mobic -] 15 mg PO DAILY 09/11/13 Tramadol HCl 50 mg PO QID PRN 09/11/13 Vitamin B Complex 1 each PO DAILY 09/11/13 oxyCODONE HCL [Roxicodone -] 5 mg PO Q6H PRN 09/11/13 Clonidine 0.1 mg PO HS 12/26/13 Cyclobenzaprine HCl 10 mg PO HS 10/23/14 Allergies Allergy/AdvReac Type Severity Reaction Status Date / Time No Known Allergies Allergy Verified 04/13/18 14:17 PHYSICAL EXAM: GENERAL: Awake, alert, and fully oriented, in no acute distress. HEAD: Normal with no signs of trauma. EYES: PERRL, sclera anicteric, conjunctiva clear. NECK: Normal ROM, LOWER EXTREMITIES: 2+ pulses, warm, well-perfused. RLE shows three ulcers on anterior aspect nearly circumferential, no erythema serous discharge. LLE shows 10x 8cm ulcer on medial calf, 2cm x 3cm ulcer lateral aspect, 3 x 3cm ulcer on heel, no erythema and serous discharge. NEUROLOGICAL: Normal speech, gait not observed. PSYCH: Cooperative. Good eye contact. Appropriate mood and affect. SKIN: Warm, dry, normal turgor, no rashes or lesions noted. Vital Signs Temperature 99.8 F H 04/14/18 14:29 Pulse Rate 82 04/14/18 14:29 Respiratory Rate 18 04/14/18 14:29 Blood Pressure 155/51 L 04/14/18 14:29 O2 Sat by Pulse Oximetry (%) 96 04/14/18 14:29 Lab Results WBC 20.1 K/mm3 (4.0-10.0) H 04/14/18 06:15 RBC 3.01 M/mm3 (3.60-5.2) L 04/14/18 06:15 Hgb 7.4 GM/dL (10.7-15.3) L 04/14/18 06:15 Hct 24.1 % (32.4-45.2) L 04/14/18 06:15 MCV 80.0 fl (80-96) 04/14/18 06:15 MCHC 30.8 g/dl (32.0-36.0) L 04/14/18 06:15 RDW 16.4 % (11.6-15.6) H 04/14/18 06:15 Plt Count 313 K/MM3 (134-434) 04/14/18 06:15 Sodium 139 mmol/L (136-145) 04/14/18 06:15 Potassium 4.5 mmol/L (3.5-5.1) 04/14/18 06:15 Chloride 106 mmol/L (98-107) 04/14/18 06:15 Carbon Dioxide 25 mmol/L (21-32) 04/14/18 06:15 Anion Gap 8 MMOL/L (8-16) 04/14/18 06:15 BUN 34 mg/dL (7-18) H 04/14/18 06:15 Creatinine 1.4 mg/dL (0.55-1.3) H 04/14/18 06:15 Random Glucose 95 mg/dL (74-106) 04/14/18 06:15 Calcium 8.4 mg/dL (8.5-10.1) L 04/14/18 06:15 Blood Type O POSITIVE 04/14/18 10:26 Antibody Screen Negative 04/14/18 09:23 INR 1.14 (0.83-1.09) H 04/13/18 14:24 Assessment: Bilateral venous stasis ulcers Plan: -silver aginate and compression dressings with deidra bandages to legs bilaterally -elevate legs -follow up with Dr. Khan in wound care clinic as outpatient <Flavio Khan - Last Filed: 04/15/18 08:36> - Consultation REQUESTING PROVIDER: CONSULT REQUEST: We have been asked to surgically evaluate this patient for ( specify). PCP:Trinh Tijerina MD HISTORY OF PRESENT ILLNESS: PMHx: PSHx: Home Medications Medication Instructions Recorded Aspirin [Baby Aspirin] 81 mg PO DAILY 10/29/11 Furosemide [Lasix] 20 mg PO DAILY 10/29/11 Montelukast Na [Singulair] 10 mg PO HS 10/29/11 Gabapentin 1 cap PO TID 07/25/13 Amlodipine Besylate [Norvasc -] 5 mg PO BID 09/11/13 Ascorbic Acid [Vitamin C] 250 mg PO DAILY 09/11/13 Cholecalciferol (Vitamin D3) 1,000 unit PO DAILY 09/11/13 [Vitamin D] Docosahexanoic Acid/Epa [Fish Oil 1 each PO DAILY 09/11/13 Softgel] Glyburide 5 mg PO BID 09/11/13 Ibuprofen [Advil -] 400 mg PO QID PRN 09/11/13 Insulin Glargine,Hum.rec.anlog 30 units SCJ DAILY 09/11/13 [Lantus Solostar PEN -] Losartan/Hydrochlorothiazide 1 tab PO DAILY 09/11/13 [Losartan-Hctz 100-25 mg Tab] Meloxicam [Mobic -] 15 mg PO DAILY 09/11/13 Tramadol HCl 50 mg PO QID PRN 09/11/13 Vitamin B Complex 1 each PO DAILY 09/11/13 oxyCODONE HCL [Roxicodone -] 5 mg PO Q6H PRN 09/11/13 Clonidine 0.1 mg PO HS 12/26/13 Cyclobenzaprine HCl 10 mg PO HS 10/23/14 Allergies Allergy/AdvReac Type Severity Reaction Status Date / Time No Known Allergies Allergy Verified 04/13/18 14:17 REVIEW OF SYSTEMS: CONSTITUTIONAL: Absent: fever, chills, diaphoresis, generalized weakness, malaise, loss of appetite, weight change CARDIOVASCULAR: Absent: chest pain, syncope, palpitations, irregular heart rate, lightheadedness , peripheral edema RESPIRATORY: Absent: cough, shortness of breath, dyspnea with exertion, wheezing, stridor, hemoptysis GASTROINTESTINAL: Absent: abdominal pain, abdominal distension, nausea, vomiting, diarrhea, constipation, melena, hematochezia GENITOURINARY: Absent: dysuria, frequency, urgency, hesitancy, hematuria, flank pain, genital pain MUSCULOSKELETAL: Absent: myalgia, arthralgia, joint swelling, back pain, neck pain SKIN: Absent: rash, itching, pallor HEMATOLOGIC/IMMUNOLOGIC: Absent: easy bleeding, easy bruising, lymphadenopathy NEUROLOGIC: Absent: headache, focal weakness, paresthesias, dizziness, unsteady gait, seizure, mental status changes, bladder or bowel incontinence PSYCHIATRIC: Absent: anxiety, depression, suicidal or homicidal ideation, hallucinations. PHYSICAL EXAM: GENERAL: Awake, alert, and fully oriented, in no acute distress. HEAD: Normal with no signs of trauma. EYES: PERRL, sclera anicteric, conjunctiva clear. NECK: Normal ROM, supple without lymphadenopathy, JVD, or masses. LUNGS: Clear to auscultation bilat anteriorly. No wheezes, and no crackles. No accessory muscle use. HEART: Regular rate and rhythm. No murmurs ABDOMEN: Soft, nontender, not distended, normoactive bowel sounds, no guarding, no rebound, no masses. No organomegaly. MUSCULOSKELETAL: Normal ROM at all joints. No bony deformities or tenderness. No CVA tenderness. UPPER EXTREMITIES: 2+ pulses, warm, well-perfused. No cyanosis. Cap refill <2 seconds. No peripheral edema. LOWER EXTREMITIES: 2+ pulses, warm, well-perfused. No calf tenderness. No peripheral edema. NEUROLOGICAL: Normal speech, gait not observed. PSYCH: Cooperative. Good eye contact. Appropriate mood and affect. SKIN: Warm, dry, normal turgor, no rashes or lesions noted. Vital Signs Temperature 98.1 F 04/15/18 04:51 Pulse Rate 91 H 04/15/18 04:51 Respiratory Rate 20 04/15/18 04:51 Blood Pressure 144/54 L 04/15/18 04:51 O2 Sat by Pulse Oximetry (%) 98 04/15/18 04:51 Lab Results WBC 14.8 K/mm3 (4.0-10.0) H 04/15/18 06:25 RBC 3.42 M/mm3 (3.60-5.2) L 04/15/18 06:25 Hgb 8.6 GM/dL (10.7-15.3) L 04/15/18 06:25 Hct 27.6 % (32.4-45.2) L 04/15/18 06:25 MCV 80.7 fl (80-96) 04/15/18 06:25 MCHC 31.1 g/dl (32.0-36.0) L 04/15/18 06:25 RDW 15.9 % (11.6-15.6) H 04/15/18 06:25 Plt Count 288 K/MM3 (134-434) 04/15/18 06:25 Sodium 134 mmol/L (136-145) L 04/15/18 06:25 Potassium 3.9 mmol/L (3.5-5.1) 04/15/18 06:25 Chloride 102 mmol/L (98-107) 04/15/18 06:25 Carbon Dioxide 24 mmol/L (21-32) 04/15/18 06:25 Anion Gap 9 MMOL/L (8-16) 04/15/18 06:25 BUN 26 mg/dL (7-18) H 04/15/18 06:25 Creatinine 1.2 mg/dL (0.55-1.3) 04/15/18 06:25 Random Glucose 200 mg/dL (74-106) H 04/15/18 06:25 Calcium 7.9 mg/dL (8.5-10.1) L 04/15/18 06:25 Blood Type O POSITIVE 04/14/18 10:26 Antibody Screen Negative 04/14/18 09:23 INR 1.14 (0.83-1.09) H 04/13/18 14:24 Patient well known to me. Chronic morbid obesity, lymphedema and stasis dermatitis with chronic ulceration of both ankles. She also has developed a new ulcer on the left heel over the past 2 months. She has been receiving HBO treatments and was found to have shaking chills and was sent to the ER. Her wound appear unchanged with surface exudate. Wound care with Alginate dressings and compression wraps ordered. Leg elevation ordered but patient does not comply.
[2018-04-14] MEDS ORDERED: ATORVASTATIN CA 40 MG TABLET (FP) ONE (23:33)
[2018-04-15] MEDS: INSULIN (LEVEMIR) 100 UNITS/ML UNITS SQ SCH ×3 (00:16→21:46)
[2018-04-15] MEDS: INSULIN SLIDING SCALE (NOVOLOG) 1 VIAL SQ SCH ×5 (00:16→22:02)
[2018-04-15] MEDS ORDERED: INSULIN REGULAR HUMAN 100 UNITS/ML *VIAL ONE (00:21)
[2018-04-15] MEDS: cloNIDine HCL 0.1 MG TABLET PO SCH ×2 (00:25→21:47)
[2018-04-15] MEDS: amLODIPine BESYLATE 5 MG TABLET (FP) PO SCH ×3 (00:25→21:47)
[2018-04-15] MEDS: CYCLOBENZAPRINE HCL 10 MG TABLET (FP) PO SCH ×2 (00:25→21:47)
[2018-04-15] MEDS: GABAPENTIN 100 MG CAPSULE (FP) PO SCH ×4 (00:25→21:47)
[2018-04-15] MEDS: MONTELUKAST NA 10 MG TABLET PO SCH ×2 (00:25→21:48)
[2018-04-15] MEDS: ATORVASTATIN CA 40 MG TABLET (FP) PO SCH ×2 (00:25→21:47)
[2018-04-15] MEDS: VANCOMYCIN 1,500 MG in DEXTROSE 5%-WATER - 500 ML IVPB SCH ×2 (00:25→12:06)
[2018-04-15] MEDS ORDERED: ACETAMINOPHEN 325 MG TABLET (FP) ONE (00:32)
[2018-04-15] MEDS ORDERED: traMADol HCL 50 MG TABLET ONE (00:33)
[2018-04-15] MEDS: traMADol HCL 50 MG TABLET PO PRN ×2 (00:45→22:00)
[2018-04-15] MEDS: ACETAMINOPHEN 325 MG TABLET (FP) PO PRN (00:45)
[2018-04-15] MEDS: PIPERACILLIN/TAZOB 4.5 GM 4.5 GM in DEXTROSE 5%-WATER 100 ML IVPB SCH ×3 (02:10→18:28)
[2018-04-15 06:39] LABS: BASO % 0.3 % (0-2.0); EOS % 0.5 % (0-4.5); HEMATOCRIT 27.6 % (32.4-45.2); HEMOGLOBIN 8.6 GM/dL (10.7-15.3); LYMPH % 9.1 % (8-40); MCH 25.1 pg (25.7-33.7); MCHC 31.1 g/dl (32.0-36.0); MEAN CELL VOLUME 80.7 fl (80-96); MEAN PLT VOLUME 7.8 fl (7.5-11.1); MONO % 6.6 % (3.8-10.2); NEUT % 83.5 % (42.8-82.8); PLATELET COUNT 288 K/MM3 (134-434); RBC 3.42 M/mm3 (3.60-5.2); RDW 15.9 % (11.6-15.6); WHITE BLOOD COUNT 14.8 K/mm3 (4.0-10.0)
[2018-04-15] MEDS ORDERED: GABAPENTIN 100 MG CAPSULE (FP) ONE (06:48)
[2018-04-15 07:15] LABS: ANION GAP 9 MMOL/L (8-16); BLOOD UREA NITROGEN 26 mg/dL (7-18); CALCIUM 7.9 mg/dL (8.5-10.1); CHLORIDE 102 mmol/L (98-107); CO2 24 mmol/L (21-32); CREATININE 1.2 mg/dL (0.55-1.3); GLUCOSE,RANDOM 200 mg/dL (74-106); PHOSPHOROUS 3.4 mg/dL (2.5-4.9); POTASSIUM 3.9 mmol/L (3.5-5.1); SODIUM 134 mmol/L (136-145)
--- NOTE | 2018-04-15 07:50 | PN ---
Progress Note, Physician Chief Complaint: C/O Left leg pain no c/o chest pain or SOB - Current Medication List Current Medications: Active Medications Acetaminophen (Tylenol -) 650 mg PO Q6H PRN PRN Reason: FEVER Last Admin: 04/15/18 00:45 Dose: 650 mg Amlodipine Besylate (Norvasc -) 5 mg PO BID [facility] Last Admin: 04/15/18 00:25 Dose: 5 mg Ascorbic Acid (Vitamin C -) 250 mg PO DAILY [facility] Last Admin: 04/14/18 10:21 Dose: 250 mg Aspirin (Asa -) 81 mg PO DAILY [facility] Last Admin: 04/14/18 10:21 Dose: 81 mg Atorvastatin Calcium (Lipitor -) 40 mg PO HS [facility] Last Admin: 04/15/18 00:25 Dose: 40 mg Cholecalciferol (Vitamin D3 -) 1,000 unit PO DAILY [facility] Last Admin: 04/14/18 11:23 Dose: 1,000 unit Clonidine (Catapres -) 0.1 mg PO HS [facility] Last Admin: 04/15/18 00:25 Dose: 0.1 mg Cyclobenzaprine HCl (Flexeril -) 10 mg PO HS [facility] Last Admin: 04/15/18 00:25 Dose: 10 mg Gabapentin (Neurontin -) 100 mg PO TID [facility] Last Admin: 04/15/18 06:53 Dose: 100 mg Glyburide (Diabeta -) 5 mg PO BIDAC [facility] Last Admin: 04/14/18 17:24 Dose: Not Given HCTZ/Losartan Potassium (Hyzaar -) 2 tab PO DAILY [facility] Last Admin: 04/14/18 10:21 Dose: 2 tab Heparin Sodium (Porcine) (Heparin -) 1,000 unit IVPUSH PRN PRN PRN Reason: Heparin Last Admin: 04/14/18 18:56 Dose: 1,000 unit Heparin Sodium (Porcine) (Heparin -) 5,000 unit IVPUSH PRN PRN PRN Reason: Heparin Last Admin: 04/14/18 12:44 Dose: 5,000 unit Vancomycin HCl 1,500 mg/ (Dextrose) 500 mls @ 166.667 mls/hr IVPB Q12H [facility]; Protocol Last Admin: 04/15/18 00:25 Dose: 166.667 mls/hr Piperacillin Sod/Tazobactam (Sod 4.5 gm/ Dextrose) 100 mls @ 200 mls/hr IVPB Q8H-IV [facility]; Protocol Last Admin: 04/15/18 02:10 Dose: 200 mls/hr Heparin Sodium (Porcine) 25, (000 unit/ Sodium Chloride) 500 mls @ 20 mls/hr IV TITR [facility]; Protocol Last Titration: 04/14/18 18:52 Dose: 1,100 unit/hr, 22 mls/hr Insulin Aspart (Novolog Vial Sliding Scale -) 1 vial SQ ACHS [facility]; Protocol Last Admin: 04/15/18 00:16 Dose: 2 unit Insulin Detemir (Levemir Vial) 15 units SQ 0700,2200 [facility] Last Admin: 04/15/18 00:16 Dose: 15 unit Montelukast Sodium (Singulair -) 10 mg PO HS [facility] Last Admin: 04/15/18 00:25 Dose: 10 mg Multivitamins (Total B With C -) 1 each PO DAILY [facility] Last Admin: 04/14/18 10:21 Dose: 1 each Non-Formulary Medication (Docosahexanoic Acid/Epa [Fish Oil Softgel]) 1 each PO DAILY [facility] Non-Formulary Medication (Meloxicam) 15 mg PO DAILY [facility] Ondansetron HCl (Zofran Injection) 4 mg IVPUSH Q6H PRN PRN Reason: NAUSEA Tramadol HCl (Ultram -) 50 mg PO Q6H PRN PRN Reason: PAIN 4-6 Last Admin: 04/15/18 00:45 Dose: 50 mg - Objective Vital Signs: Vital Signs Temperature 98.1 F 04/15/18 04:51 Pulse Rate 91 H 04/15/18 04:51 Respiratory Rate 20 04/15/18 04:51 Blood Pressure 144/54 L 04/15/18 04:51 O2 Sat by Pulse Oximetry (%) 98 04/15/18 04:51 Elderly F not in distress c/o body pain HEENT: MM moist , anemia, PERRLA EOMI NECK: No JVd No Bruit CHEST: Minimal basal crepts CVS: S1S2 R no m/g/r ABD: Obese non tender BS +, Last BM yesterday EXT & BACK: Extensive edema, foul smelling ulcers Left > Rt Venous stasuis chnages [employer]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 Non focal DERM: B/L infected wounds Labs: CBC, BMP 04/15/18 06:25 04/15/18 06:25 INR, PTT INR 1.14 (0.83-1.09) H 04/13/18 14:24 Problem List - Problems (1) Cellulitis Assessment/Plan: Extensive B/L LE cellulitis present with elevated TWBC Lactic acid and fever suggestive of Sepsis grew poly microbial on Zosyn and Vancomycin as per ID recommendation Code(s): L03.90 - CELLULITIS, UNSPECIFIED Qualifiers: Site of cellulitis: extremity Site of cellulitis of extremity: lower extremity Laterality: left Qualified Code(s): L03.116 - Cellulitis of left lower limb (2) Sepsis Assessment/Plan: Improving Extensive B/L LE cellulitis present with elevated TWBC now trending down Lactic acid and fever suggestive of Sepsis grew poly microbial on Zosyn and Vancomycin as per ID recommendation Code(s): A41.9 - SEPSIS, UNSPECIFIED ORGANISM (3) NSTEMI (non-ST elevated myocardial infarction) Assessment/Plan: Elevated Troponin I multiple CAD risk factors most likely Demand Ischemia cont current regimen on Heparin infusion denies any chest pain F/U cardiology recommendations Code(s): I21.4 - NON-ST ELEVATION (NSTEMI) MYOCARDIAL INFARCTION (4) Diabetes Assessment/Plan: T2 with Microangiopathy CKD on Levimir and correction dose Lispro and oral meds will F/U HBa!C optimize Glycemic control. 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 insulin use: with usp use Diabetes mellitus complication status: with skin complications Diabetes mellitus complication detail: with other skin ulcer Qualified Code(s): E11.622 - Type 2 diabetes mellitus with other skin ulcer; Z79.4 - terminal gauger (current) use of insulin (5) Anemia Assessment/Plan: Chrnic H/H is table Code(s): D64.9 - ANEMIA, UNSPECIFIED (6) HTN (hypertension) Assessment/Plan: Now Well controlled cont all home meds Code(s): I10 - ESSENTIAL (PRIMARY) HYPERTENSION (7) Morbid obesity Assessment/Plan: Morbidly obese BMI 53 will F/U nutritional assessment as out patient on DC Code(s): E66.01 - MORBID (SEVERE) OBESITY DUE TO EXCESS CALORIES (8) Chronic pain Code(s): G89.29 - OTHER CHRONIC PAIN Qualifiers: Chronic pain type: chronic pain syndrome Qualified Code(s): G89.4 - Chronic pain syndrome (9) COPD (chronic obstructive pulmonary disease) Assessment/Plan: On symbicort cont same at present stable Code(s): J44.9 - CHRONIC OBSTRUCTIVE PULMONARY DISEASE, UNSPECIFIED (10) Chronic pain Assessment/Plan: Gabapentin and Tramadol Code(s): G89.29 - OTHER CHRONIC PAIN
[2018-04-15] MEDS: glyBURIDE 5 MG TABLET (UD) PO SCH ×2 (08:27→18:28)
[2018-04-15] MEDS: HEPARIN NA (PORCINE) 5,000 UNITS/ML 1ML VIAL IVPUSH PRN ×2 (09:31→23:00)
[2018-04-15] MEDS ORDERED: HEPARIN NA (PORCINE) 5,000 UNITS/ML 1ML VIAL ONE (09:32)
[2018-04-15] MEDS ORDERED: INSULIN (LEVEMIR) 100 UNITS/ML UNITS SQ ONE (10:01)
[2018-04-15] MEDS: ASPIRIN 81 MG CHEWABLE TABLETS PO SCH (10:56)
[2018-04-15] MEDS: ASCORBIC ACID 250 MG TABLET (FP) PO SCH (10:57)
[2018-04-15] MEDS: VITAMIN B COMPLEX W/C COMBO TABLET (FP) PO SCH (10:57)
[2018-04-15] MEDS: CHOLECALCIFEROL (VITAMIN D3) 1,000 UNIT TABLET (FP) PO SCH (10:57)
[2018-04-15] MEDS ORDERED: HEPARIN INFUSION - 25,000 UNITS/500 ML INFUS.BAG IVPB ONE (11:42)
--- NOTE | 2018-04-15 11:49 | PN ---
Progress Note (short form) - Note Progress Note: s: no cp sob palps dizzy o: Vital Signs Period Temp Pulse Resp BP Sys/Petersen Pulse Ox Last 24 Hr 98.1 F-101.6 F 82-91 18-22 144-185/49-55 96-99 nad no jvd rrr s1s2 no mrg cta bl nl eff aaox3 trace le edema, nonpitting edema, chronic stasis changes of skin abd nt nd pos bs no jaundice diaphoresis Current Medications Generic Name Dose Route Start Last Admin Trade Name Freq PRN Reason Stop Dose Admin Acetaminophen 650 mg 04/13/18 17:56 04/15/18 00:45 Tylenol - PO 650 mg Q6H PRN Administration FEVER Amlodipine Besylate 5 mg 04/13/18 22:00 04/15/18 10:56 Norvasc - PO 5 mg BID [facility] Administration Ascorbic Acid 250 mg 04/14/18 10:00 04/15/18 10:57 Vitamin C - PO 250 mg DAILY [facility] Administration Aspirin 81 mg 04/14/18 10:00 04/15/18 10:56 Asa - PO 81 mg DAILY [facility] Administration Atorvastatin Calcium 40 mg 04/14/18 22:00 04/15/18 00:25 Lipitor - PO 40 mg HS [facility] Administration Budesonide/Formoterol Fumarate 2 puff 04/15/18 22:00 Symbicort 160/4.5mcg - IH BID [facility] Cholecalciferol 1,000 unit 04/14/18 10:00 04/15/18 10:57 Vitamin D3 - PO 1,000 unit DAILY [facility] Administration Clonidine 0.1 mg 04/13/18 22:00 04/15/18 00:25 Catapres - PO 0.1 mg HS [facility] Administration Cyclobenzaprine HCl 10 mg 04/14/18 22:00 04/15/18 00:25 Flexeril - PO 10 mg HS [facility] Administration Gabapentin 100 mg 04/13/18 22:00 04/15/18 06:53 Neurontin - PO 100 mg TID [facility] Administration Glyburide 5 mg 04/14/18 07:00 04/15/18 08:27 Diabeta - PO 5 mg BIDAC [facility] Administration HCTZ/Losartan Potassium 2 tab 04/14/18 10:00 04/14/18 10:21 Hyzaar - PO 2 tab DAILY [facility] Administration Heparin Sodium (Porcine) 1,000 unit 04/14/18 11:44 04/14/18 18:56 Heparin - IVPUSH 1,000 unit PRN PRN Administration Heparin Heparin Sodium (Porcine) 5,000 unit 04/14/18 11:44 04/15/18 09:31 Heparin - IVPUSH 5,000 unit PRN PRN Administration Heparin Vancomycin HCl 1,500 mg/ 500 mls @ 166.667 mls/hr 04/14/18 10:00 04/15/18 00: 25 Dextrose IVPB 166.667 mls/hr Q12H [facility] Administration Protocol Piperacillin Sod/Tazobactam 100 mls @ 200 mls/hr 04/13/18 22:00 04/15/18 11: 46 Sod 4.5 gm/ Dextrose IVPB 200 mls/hr Q8H-IV [facility] Administration Protocol Heparin Sodium (Porcine) 25, 500 mls @ 20 mls/hr 04/14/18 11:45 04/15/18 09: 30 000 unit/ Sodium Chloride IV 1,250 unit/hr TITR [facility] 25 mls/hr Titration Protocol 1,000 UNIT/HR Insulin Aspart 1 vial 04/13/18 22:00 04/15/18 00:16 Novolog Vial Sliding Scale - SQ 2 unit ACHS [facility] Administration Protocol Insulin Detemir 15 units 04/13/18 22:00 04/15/18 00:16 Levemir Vial SQ 15 unit 0700,2200 [facility] Administration Montelukast Sodium 10 mg 04/13/18 22:00 04/15/18 00:25 Singulair - PO 10 mg HS [facility] Administration Multivitamins 1 each 04/14/18 10:00 04/15/18 10:57 Total B With C - PO 1 each DAILY [facility] Administration Non-Formulary Medication 1 each 04/14/18 10:00 Docosahexanoic Acid/Epa [Fish Oil Softgel] PO DAILY [facility] Non-Formulary Medication 15 mg 04/14/18 10:00 Meloxicam PO DAILY [facility] Ondansetron HCl 4 mg 04/13/18 17:56 Zofran Injection IVPUSH Q6H PRN NAUSEA Tramadol HCl 50 mg 04/13/18 18:03 04/15/18 00:45 Ultram - PO 50 mg Q6H PRN Administration PAIN 4-6 Laboratory Last Values WBC 14.8 K/mm3 (4.0-10.0) H 04/15/18 06:25 RBC 3.42 M/mm3 (3.60-5.2) L 04/15/18 06:25 Hgb 8.6 GM/dL (10.7-15.3) L 04/15/18 06:25 Hct 27.6 % (32.4-45.2) L 04/15/18 06:25 MCV 80.7 fl (80-96) 04/15/18 06:25 MCH 25.1 pg (25.7-33.7) L 04/15/18 06:25 MCHC 31.1 g/dl (32.0-36.0) L 04/15/18 06:25 RDW 15.9 % (11.6-15.6) H 04/15/18 06:25 Plt Count 288 K/MM3 (134-434) 04/15/18 06:25 MPV 7.8 fl (7.5-11.1) 04/15/18 06:25 Absolute Neuts (auto) 12.3 K/mm3 (1.5-8.0) H 04/15/18 06:25 Neutrophils % 83.5 % (42.8-82.8) H 04/15/18 06:25 Neutrophils % (Manual) 90.0 % (42.8-82.8) H 04/13/18 14:24 Band Neutrophils % 5.0 % 04/13/18 14:24 Lymphocytes % 9.1 % (8-40) D 04/15/18 06:25 Lymphocytes % (Manual) 1.0 % (8-40) L 04/13/18 14:24 Monocytes % 6.6 % (3.8-10.2) D 04/15/18 06:25 Monocytes % (Manual) 2 % (3.8-10.2) L 04/13/18 14:24 Eosinophils % 0.5 % (0-4.5) D 04/15/18 06:25 Eosinophils % (Manual) 0.0 % (0-4.5) 04/13/18 14:24 Basophils % 0.3 % (0-2.0) 04/15/18 06:25 Basophils % (Manual) 0.0 % (0-2.0) 04/13/18 14:24 Myelocytes % (Man) 1 % (0-2) 04/13/18 14:24 Promyelocytes % (Man) 0 % (0-2) 04/13/18 14:24 Blast Cells % (Manual) 0 % (0-0) 04/13/18 14:24 Nucleated RBC % 0 % (0-0) 04/15/18 06:25 Metamyelocytes 1 % (0-2) 04/13/18 14:24 Hypochromia 0 04/13/18 14:24 Platelet Estimate Normal 04/13/18 14:24 Polychromasia 0 04/13/18 14:24 Poikilocytosis 0 04/13/18 14:24 Anisocytosis 0 04/13/18 14:24 Microcytosis 3+ 04/13/18 14:24 Macrocytosis 0 04/13/18 14:24 ESR 118 mm/hr (0-30) H 04/14/18 06:15 PT with INR 13.50 SEC (9.7-13.0) H 04/13/18 14:24 INR 1.14 (0.83-1.09) H 04/13/18 14:24 PTT (Actin FS) 37.4 SECONDS (25.2-36.5) H 04/15/18 08:20 VBG pH 7.36 (7.32-7.42) 04/13/18 14:24 POC VBG pCO2 42.9 mmHg (38-52) 04/13/18 14:24 POC VBG pO2 23.3 mmHg (28-48) L 04/13/18 14:24 Mixed VBG HCO3 23.7 meq/L (19-25) 04/13/18 14:24 Sodium 134 mmol/L (136-145) L 04/15/18 06:25 Potassium 3.9 mmol/L (3.5-5.1) 04/15/18 06:25 Chloride 102 mmol/L (98-107) 04/15/18 06:25 Carbon Dioxide 24 mmol/L (21-32) 04/15/18 06:25 Anion Gap 9 MMOL/L (8-16) 04/15/18 06:25 BUN 26 mg/dL (7-18) H 04/15/18 06:25 Creatinine 1.2 mg/dL (0.55-1.3) 04/15/18 06:25 Creat Clearance w eGFR 44.81 (>60) 04/15/18 06:25 POC Glucometer 162.29488 UNITS (80-120) 04/15/18 00:10 Random Glucose 200 mg/dL (74-106) H 04/15/18 06:25 Hemoglobin A1c % 6.4 % (4.2-6.3) H 04/14/18 06:15 Lactic Acid 0.8 mmol/L (0.4-2.0) 04/13/18 14:24 Calcium 7.9 mg/dL (8.5-10.1) L 04/15/18 06:25 Phosphorus 3.4 mg/dL (2.5-4.9) 04/15/18 06:25 Magnesium 2.0 mg/dL (1.8-2.4) 04/15/18 06:25 Total Bilirubin 0.3 mg/dL (0.2-1) 04/13/18 14:24 AST 10 U/L (15-37) L 04/13/18 14:24 ALT 15 U/L (13-61) 04/13/18 14:24 Alkaline Phosphatase 56 U/L (45-117) 04/13/18 14:24 Creatine Kinase 165 IU/L (26-192) 04/14/18 11:45 Creatine Kinase Index 0.6 % (0.0-5.0) 04/14/18 11:45 CK-MB (CK-2) < 1.0 ng/mL (0.5-3.6) 04/14/18 11:45 Troponin I 1.38 ng/ml (0.00-0.05) H* 04/14/18 11:45 C-Reactive Protein 16.6 MG/DL (0.00-0.3) H 04/14/18 06:15 Total Protein 8.5 g/dl (6.4-8.2) H 04/13/18 14:24 Albumin 3.1 g/dl (3.4-5.0) L 04/13/18 14:24 Urine Color Ltyellow 04/13/18 14:50 Urine Appearance Slcloudy 04/13/18 14:50 Urine pH 5.0 (5.0-8.0) 04/13/18 14:50 Ur Specific [place] 1.011 (1.010-1.035) 04/13/18 14:50 Urine Protein 2+ (NEGATIVE) H 04/13/18 14:50 Urine Glucose (UA) Negative (NEGATIVE) 04/13/18 14:50 Urine Ketones Negative (NEGATIVE) 04/13/18 14:50 Urine Blood 2+ (NEGATIVE) H 04/13/18 14:50 Urine Nitrite Negative (NEGATIVE) 04/13/18 14:50 Urine Bilirubin Negative (<2.0 mg/dL) 04/13/18 14:50 Urine Urobilinogen Negative mg/dL (0.2-1.0) 04/13/18 14:50 Ur Leukocyte Esterase 2+ (NEGATIVE) H 04/13/18 14:50 Urine WBC (Auto) 79 /hpf (3-5) 04/13/18 14:50 Urine RBC (Auto) 30 /hpf (0-3) 04/13/18 14:50 Urine Bacteria Rare /hpf (NONE SEEN) 04/13/18 14:50 Urine Mucus Rare 04/13/18 14:50 Blood Type O POSITIVE 04/14/18 10:26 Antibody Screen Negative 04/14/18 09:23 Crossmatch See Detail 04/14/18 09:23 cxr: clear lungs ecg: sr, nl intervals, no ischemic changes echo 03/2018: mild lvh, nl lv/rv, no sig valve path a/p: 67 f hx morbid obesity, venous insuff/edema, chronic leg wounds, dm, htn, anemia, here with fever. sepsis, cellulitis: -abx per PMD, ID venous insuff/le edema: -on lasix at home, holding here due to michelle likely from sepsis htn: -cont home meds anemia: -pt has baseline anemia but hgb dropped into 7's 04/14, no obvious bleeding, may just be dilutional from ivfs she got. got prbcs, hgb 8s today. NSTEMI: -trop was normal then repeat increased to 1.6 (now trending down). Possibly just related to sepsis and michelle but she did mention chest pressure and the jump from normal to 1.6 may be consistent with ACS. ECG and echo unremarkable. Already getting asa. Will start hep gtt for 72 hours for nstemi. Will hold off on plavix for now given her anemia requiring prbcs. Monitor hgb. Tele. Trend trops. Started lipitor. -ischemic eval after acute issues resolve
[2018-04-15] MEDS: HEPARIN - 25,000 UNIT in SODIUM CHLORIDE 495 ML IV SCH (12:01)
[2018-04-15] MEDS: LOSARTAN 50MG/HCTZ 12.5MG 1 TAB (FP) PO SCH (12:06)
[2018-04-15] MEDS ORDERED: INSULIN (NOVOLOG) ASPART 100 UNITS/ML 10ML VIAL ONE (16:02)
[2018-04-15] MEDS ORDERED: DEXTROSE 5%-WATER 100 ML IVPB ONE (21:12)
[2018-04-15] MEDS: CEFTRIAXONE 2 GM in DEXTROSE 5%-WATER 100 ML IVPB SCH (21:40)
--- NOTE | 2018-04-15 21:50 | PN ---
Progress Note (short form) - Note Progress Note: Complains of bilateral leg pains at sites of ulcers Still febrile WBC improved Blood c/s prelim grp B strep Urine c/s Enterobacter Awake in bed Morbidly obese Cor S1S2 Lungs clear Abdomen obese, soft, non tender + bilateral LE ulcers, malodorous drainage Bacteremia/ sepsis, likely secondary to skin source UTI Morbid obesity Pending final culture results, empiric ceftriaxone
[2018-04-15] MEDS: BUDESONIDE/FORMETEROL FUMARATE 160/4.5 mcg INHALER IH SCH (23:01)
[2018-04-16] MEDS: INSULIN SLIDING SCALE (NOVOLOG) 1 VIAL SQ SCH ×4 (06:43→22:05)
[2018-04-16] MEDS: INSULIN (LEVEMIR) 100 UNITS/ML UNITS SQ SCH ×2 (06:43→22:04)
[2018-04-16] MEDS: GABAPENTIN 100 MG CAPSULE (FP) PO SCH ×3 (06:44→22:09)
[2018-04-16] MEDS: glyBURIDE 5 MG TABLET (UD) PO SCH ×2 (06:46→16:38)
[2018-04-16 06:59] LABS: BASO % 0.5 % (0-2.0); EOS % 1.9 % (0-4.5); HEMATOCRIT 26.2 % (32.4-45.2); HEMOGLOBIN 8.8 GM/dL (10.7-15.3); MCH 26.9 pg (25.7-33.7); MCHC 33.7 g/dl (32.0-36.0); MEAN CELL VOLUME 79.9 fl (80-96); MEAN PLT VOLUME 7.9 fl (7.5-11.1); MONO % 9.3 % (3.8-10.2); NEUT % 75.3 % (42.8-82.8); PLATELET COUNT 320 K/MM3 (134-434); RBC 3.28 M/mm3 (3.60-5.2); RDW 15.7 % (11.6-15.6); WHITE BLOOD COUNT 10.1 K/mm3 (4.0-10.0)
[2018-04-16 07:14] LABS: ALK PHOS 60 U/L (45-117); ANION GAP 8 MMOL/L (8-16); BILIRUBIN,TOTAL 0.5 mg/dL (0.2-1); BLOOD UREA NITROGEN 21 mg/dL (7-18); CALCIUM 7.7 mg/dL (8.5-10.1); CHLORIDE 103 mmol/L (98-107); CO2 25 mmol/L (21-32); GLUCOSE,RANDOM 128 mg/dL (74-106); POTASSIUM 4.3 mmol/L (3.5-5.1); SGOT/AST 17 U/L (15-37); SGPT/ALT 14 U/L (13-61); SODIUM 136 mmol/L (136-145); TOT PROT 6.8 g/dl (6.4-8.2)
--- NOTE | 2018-04-16 07:59 | PN ---
Progress Note, Physician Chief Complaint: No new complaints , C/O Left leg pain - Current Medication List Current Medications: Active Medications Acetaminophen (Tylenol -) 650 mg PO Q6H PRN PRN Reason: FEVER Last Admin: 04/15/18 00:45 Dose: 650 mg Amlodipine Besylate (Norvasc -) 5 mg PO BID [facility] Last Admin: 04/15/18 21:47 Dose: 5 mg Ascorbic Acid (Vitamin C -) 250 mg PO DAILY [facility] Last Admin: 04/15/18 10:57 Dose: 250 mg Aspirin (Asa -) 81 mg PO DAILY [facility] Last Admin: 04/15/18 10:56 Dose: 81 mg Atorvastatin Calcium (Lipitor -) 40 mg PO HS [facility] Last Admin: 04/15/18 21:47 Dose: 40 mg Budesonide/Formoterol Fumarate (Symbicort 160/4.5mcg -) 2 puff IH BID [facility] Last Admin: 04/15/18 23:01 Dose: 2 puff Cholecalciferol (Vitamin D3 -) 1,000 unit PO DAILY [facility] Last Admin: 04/15/18 10:57 Dose: 1,000 unit Clonidine (Catapres -) 0.1 mg PO HS [facility] Last Admin: 04/15/18 21:47 Dose: 0.1 mg Cyclobenzaprine HCl (Flexeril -) 10 mg PO HS [facility] Last Admin: 04/15/18 21:47 Dose: 10 mg Gabapentin (Neurontin -) 100 mg PO TID [facility] Last Admin: 04/16/18 06:44 Dose: 100 mg Glyburide (Diabeta -) 5 mg PO BIDAC [facility] Last Admin: 04/16/18 06:46 Dose: 5 mg HCTZ/Losartan Potassium (Hyzaar -) 2 tab PO DAILY [facility] Last Admin: 04/15/18 12:06 Dose: 2 tab Heparin Sodium (Porcine) (Heparin -) 1,000 unit IVPUSH PRN PRN PRN Reason: Heparin Last Admin: 04/15/18 23:00 Dose: 1,000 unit Heparin Sodium (Porcine) (Heparin -) 5,000 unit IVPUSH PRN PRN PRN Reason: Heparin Last Admin: 04/15/18 09:31 Dose: 5,000 unit Heparin Sodium (Porcine) 25, (000 unit/ Sodium Chloride) 500 mls @ 20 mls/hr IV TITR [facility]; Protocol Last Titration: 04/16/18 00:12 Dose: 1,350 unit/hr, 27 mls/hr Ceftriaxone Sodium 2 gm/ (Dextrose) 100 mls @ 100 mls/hr IVPB DAILY [facility]; Protocol Last Admin: 04/15/18 21:40 Dose: 100 mls/hr Influenza Virus Vaccine Quadrival (Flulaval Quad 5232-7023) 60 mcg IM .ONCE ONE Stop: 04/16/18 10:01 Insulin Aspart (Novolog Vial Sliding Scale -) 1 vial SQ ACHS [facility]; Protocol Last Admin: 04/16/18 06:43 Dose: 2 unit Insulin Detemir (Levemir Vial) 15 units SQ 0700,2200 [facility] Last Admin: 04/16/18 06:43 Dose: Not Given Montelukast Sodium (Singulair -) 10 mg PO HS [facility] Last Admin: 04/15/18 21:48 Dose: 10 mg Multivitamins (Total B With C -) 1 each PO DAILY [facility] Last Admin: 04/15/18 10:57 Dose: 1 each Non-Formulary Medication (Docosahexanoic Acid/Epa [Fish Oil Softgel]) 1 each PO DAILY [facility] Non-Formulary Medication (Meloxicam) 15 mg PO DAILY [facility] Ondansetron HCl (Zofran Injection) 4 mg IVPUSH Q6H PRN PRN Reason: NAUSEA Tramadol HCl (Ultram -) 50 mg PO Q6H PRN PRN Reason: PAIN 4-6 Last Admin: 04/15/18 22:00 Dose: 50 mg - Objective Vital Signs: Vital Signs Temperature 98.6 F 04/16/18 06:00 Pulse Rate 82 04/16/18 06:00 Respiratory Rate 18 04/16/18 06:00 Blood Pressure 137/66 04/16/18 06:00 O2 Sat by Pulse Oximetry (%) 96 04/15/18 21:00 Elderly F not in distress c/o body pain HEENT: MM moist , anemia, PERRLA EOMI NECK: No JVd No Bruit CHEST: Minimal basal crepts CVS: S1S2 R no m/g/r ABD: Obese non tender BS +, Last BM yesterday EXT & BACK: Extensive edema, foul smelling ulcers Left > Rt Venous stasuis chnages [employer]: AOX3 Non focal DERM: B/L infected wounds Labs: CBC, BMP 11/03/18 05:30 04/16/18 05:30 INR, PTT INR 1.14 (0.83-1.09) H 04/13/18 14:24 Problem List - Problems (1) Cellulitis Assessment/Plan: Extensive B/L LE cellulitis present with elevated TWBC Lactic acid and fever suggestive of Sepsis grew poly microbial on Zosyn and Vancomycin as per ID recommendation Code(s): L03.90 - CELLULITIS, UNSPECIFIED Qualifiers: Site of cellulitis: extremity Site of cellulitis of extremity: lower extremity Laterality: left Qualified Code(s): L03.116 - Cellulitis of left lower limb (2) Sepsis Assessment/Plan: Improving Extensive B/L LE cellulitis present with elevated TWBC now trending down Lactic acid and fever suggestive of Sepsis grew poly microbial on Zosyn and Vancomycin as per ID recommendation Code(s): A41.9 - SEPSIS, UNSPECIFIED ORGANISM (3) NSTEMI (non-ST elevated myocardial infarction) Assessment/Plan: Elevated Troponin I multiple CAD risk factors most likely Demand Ischemia cont current regimen on Heparin infusion denies any chest pain F/U cardiology recommendations Code(s): I21.4 - NON-ST ELEVATION (NSTEMI) MYOCARDIAL INFARCTION (4) Diabetes Assessment/Plan: T2 with Microangiopathy CKD on Levimir and correction dose Lispro and oral meds will F/U HBa!C optimize Glycemic control. Code(s): E11.9 - TYPE 2 DIABETES MELLITUS WITHOUT COMPLICATIONS Qualifiers: Diabetes mellitus type: type 2 Diabetes mellitus detention insulin use: with terminal worker use Diabetes mellitus complication status: with skin complications Diabetes mellitus complication detail: with other skin ulcer Qualified Code(s): E11.622 - Type 2 diabetes mellitus with other skin ulcer; Z79.4 - terminal operator (current) use of insulin (5) Anemia Assessment/Plan: Chrnic H/H is table Code(s): D64.9 - ANEMIA, UNSPECIFIED (6) HTN (hypertension) Assessment/Plan: Now Well controlled cont all home meds Code(s): I10 - ESSENTIAL (PRIMARY) HYPERTENSION (7) Morbid obesity Assessment/Plan: Morbidly obese BMI 53 will F/U nutritional assessment as out patient on DC Code(s): E66.01 - MORBID (SEVERE) OBESITY DUE TO EXCESS CALORIES (8) Chronic pain Code(s): G89.29 - OTHER CHRONIC PAIN Qualifiers: Chronic pain type: chronic pain syndrome Qualified Code(s): G89.4 - Chronic pain syndrome (9) COPD (chronic obstructive pulmonary disease) Assessment/Plan: On symbicort cont same at present stable Code(s): J44.9 - CHRONIC OBSTRUCTIVE PULMONARY DISEASE, UNSPECIFIED (10) Chronic pain Assessment/Plan: Gabapentin and Tramadol Code(s): G89.29 - OTHER CHRONIC PAIN
[2018-04-16] MEDS ORDERED: DEXTROSE 5%-WATER 100 ML IVPB ONE (08:49)
[2018-04-16] MEDS: ACETAMINOPHEN 325 MG TABLET (FP) PO PRN (09:10)
[2018-04-16] MEDS: traMADol HCL 50 MG TABLET PO PRN ×3 (09:10→22:08)
[2018-04-16] MEDS: amLODIPine BESYLATE 5 MG TABLET (FP) PO SCH ×2 (09:10→22:09)
[2018-04-16] MEDS: CHOLECALCIFEROL (VITAMIN D3) 1,000 UNIT TABLET (FP) PO SCH (09:10)
[2018-04-16] MEDS: ASPIRIN 81 MG CHEWABLE TABLETS PO SCH (09:10)
[2018-04-16] MEDS: CEFTRIAXONE 2 GM in DEXTROSE 5%-WATER 100 ML IVPB SCH (09:11)
[2018-04-16] MEDS: HEPARIN NA (PORCINE) 5,000 UNITS/ML 1ML VIAL IVPUSH PRN (09:14)
[2018-04-16] MEDS ORDERED: PT OWN MED DRAWER 7, Y5N ONE (09:37)
[2018-04-16] MEDS: LOSARTAN 50MG/HCTZ 12.5MG 1 TAB (FP) PO SCH (09:38)
[2018-04-16] MEDS: BUDESONIDE/FORMETEROL FUMARATE 160/4.5 mcg INHALER IH SCH ×2 (09:38→22:10)
[2018-04-16] MEDS: ASCORBIC ACID 250 MG TABLET (FP) PO SCH (09:38)
[2018-04-16] MEDS: HEPARIN - 25,000 UNIT in SODIUM CHLORIDE 495 ML IV SCH ×2 (09:39→16:35)
[2018-04-16] MEDS: VITAMIN B COMPLEX W/C COMBO TABLET (FP) PO SCH (09:39)
[2018-04-16] MEDS ORDERED: FLU VACCINE QUAD 60 MCG/0.5 ML (MDV 18-19) IM ONE (10:00)
--- NOTE | 2018-04-16 11:07 | PN ---
Progress Note (short form) - Note Progress Note: feels better today dressings intact no complaints chronic constipation Vital Signs Period Temp Pulse Resp BP Sys/Petersen Pulse Ox Last 24 Hr 98.2 F-99.7 F 80-92 16-18 137-195/63-66 96-98 cor-rrr lungs clear abd soft,nt ext dressings intact CBC, BMP 04/16/18 05:30 04/16/18 05:30 Microbiology 04/13/18 14:50 Urine - Urine Clean Catch Urine Culture - Final Enterobacter Cloacae 04/13/18 14:24 Blood - Peripheral Venous Blood Culture - Preliminary Strep Agalactiae Group B 04/13/18 14:24 Blood - Peripheral Venous Blood Culture - Preliminary Beta Hemolytic Strep 04/13/18 14:35 Nasopharyngeal Swab Influenza Types A,B Antigen - Final 04/13/18 14:35 Nasopharyngeal Swab - Final echo grossly normal technically limited Laboratory Tests 04/14/18 04/14/18 06:15 06:15 ESR 118 H C-Reactive Protein 16.6 H a/p group B strep bacteremia infected leg ulcers enterobacter UTI continue ceftriaxone repeat blood cultures wound care per surgery- she has been going to [facility] as well as outpt have asked nurse to call me so I can see her legs when dressing change is done
--- NOTE | 2018-04-16 11:31 | PN ---
Progress Note (short form) - Note Progress Note: Progress Note: s: no cp sob palps dizzy o: Vital Signs Period Temp Pulse Resp BP Sys/Petersen Pulse Ox Last 24 Hr 98.2 F-99.7 F 80-92 16-20 137-195/63-66 96-98 nad no jvd rrr s1s2 no mrg cta bl nl eff aaox3 trace le edema, nonpitting edema, chronic stasis changes of skin abd nt nd pos bs no jaundice diaphoresis Current Medications Acetaminophen (Tylenol -) 650 mg PO Q6H PRN PRN Reason: FEVER Last Admin: 04/16/18 09:10 Dose: 650 mg Amlodipine Besylate (Norvasc -) 5 mg PO BID [facility] Last Admin: 04/16/18 09:10 Dose: 5 mg Ascorbic Acid (Vitamin C -) 250 mg PO DAILY [facility] Last Admin: 04/16/18 09:38 Dose: 250 mg Aspirin (Asa -) 81 mg PO DAILY [facility] Last Admin: 04/16/18 09:10 Dose: 81 mg Atorvastatin Calcium (Lipitor -) 40 mg PO HS [facility] Last Admin: 04/15/18 21:47 Dose: 40 mg Budesonide/Formoterol Fumarate (Symbicort 160/4.5mcg -) 2 puff IH BID [facility] Last Admin: 04/16/18 09:38 Dose: 2 puff Cholecalciferol (Vitamin D3 -) 1,000 unit PO DAILY [facility] Last Admin: 04/16/18 09:10 Dose: 1,000 unit Clonidine (Catapres -) 0.1 mg PO HS [facility] Last Admin: 04/15/18 21:47 Dose: 0.1 mg Cyclobenzaprine HCl (Flexeril -) 10 mg PO HS [facility] Last Admin: 04/15/18 21:47 Dose: 10 mg Gabapentin (Neurontin -) 100 mg PO TID [facility] Last Admin: 04/16/18 06:44 Dose: 100 mg Glyburide (Diabeta -) 5 mg PO BIDAC [facility] Last Admin: 04/16/18 06:46 Dose: 5 mg HCTZ/Losartan Potassium (Hyzaar -) 2 tab PO DAILY [facility] Last Admin: 04/16/18 09:38 Dose: 2 tab Heparin Sodium (Porcine) (Heparin -) 1,000 unit IVPUSH PRN PRN PRN Reason: Heparin Last Admin: 04/15/18 23:00 Dose: 1,000 unit Heparin Sodium (Porcine) (Heparin -) 5,000 unit IVPUSH PRN PRN PRN Reason: Heparin Last Admin: 04/16/18 09:14 Dose: 5,000 unit Heparin Sodium (Porcine) 25, (000 unit/ Sodium Chloride) 500 mls @ 20 mls/hr IV TITR [facility]; Protocol Last Admin: 04/16/18 09:39 Dose: 1,450 unit/hr, 29 mls/hr Ceftriaxone Sodium 2 gm/ (Dextrose) 100 mls @ 100 mls/hr IVPB DAILY [facility]; Protocol Last Admin: 04/16/18 09:11 Dose: 100 mls/hr Insulin Aspart (Novolog Vial Sliding Scale -) 1 vial SQ ACHS [facility]; Protocol Last Admin: 04/16/18 06:43 Dose: 2 unit Insulin Detemir (Levemir Vial) 15 units SQ 0700,2200 [facility] Last Admin: 04/16/18 06:43 Dose: Not Given Montelukast Sodium (Singulair -) 10 mg PO HS [facility] Last Admin: 04/15/18 21:48 Dose: 10 mg Multivitamins (Total B With C -) 1 each PO DAILY [facility] Last Admin: 04/16/18 09:39 Dose: Not Given Non-Formulary Medication (Docosahexanoic Acid/Epa [Fish Oil Softgel]) 1 each PO DAILY [facility] Non-Formulary Medication (Meloxicam) 15 mg PO DAILY [facility] Ondansetron HCl (Zofran Injection) 4 mg IVPUSH Q6H PRN PRN Reason: NAUSEA Tramadol HCl (Ultram -) 50 mg PO Q6H PRN PRN Reason: PAIN 4-6 Last Admin: 04/16/18 09:10 Dose: 50 mg cxr: clear lungs ecg: sr, nl intervals, no ischemic changes echo 03/2018: mild lvh, nl lv/rv, no sig valve path a/p: 67 f hx morbid obesity, venous insuff/edema, chronic leg wounds, dm, htn, anemia, here with fever. sepsis, cellulitis: -abx per PMD, ID venous insuff/le edema: -on lasix at home, held here due to michelle likely from sepsis, Cr stable now. cont holding htn: -cont home meds anemia: -pt has baseline anemia but hgb dropped into 7's 04/14, no obvious bleeding, may just be dilutional from ivfs she got. got prbcs, hgb 8s today. NSTEMI: -trop was normal then repeat increased to 1.6 (now trending down). Possibly just related to sepsis and michelle but she did mention chest pressure and the jump from normal to 1.6 may be consistent with ACS. ECG and echo unremarkable. Already getting asa. cont hep gtt for 72 hours for nstemi. hold off on plavix for now given her anemia requiring prbcs. Monitor hgb. Tele. Trend trops. Started lipitor. -ischemic eval after acute issues resolve
[2018-04-16] MEDS: COLLAGENASE CLOSTRIDIUM HIST. 30 GRAMS TUBE TP SCH (12:24)
[2018-04-16] MEDS: SILVER SULFADIAZINE 1% TOP CREAM 400 GM JAR TP SCH (14:14)
[2018-04-16] MEDS: MONTELUKAST NA 10 MG TABLET PO SCH (22:09)
[2018-04-16] MEDS: cloNIDine HCL 0.1 MG TABLET PO SCH (22:09)
[2018-04-16] MEDS: CYCLOBENZAPRINE HCL 10 MG TABLET (FP) PO SCH (22:09)
[2018-04-16] MEDS: ATORVASTATIN CA 40 MG TABLET (FP) PO SCH (22:10)
[2018-04-17] MEDS: ACETAMINOPHEN 325 MG TABLET (FP) PO PRN ×3 (01:07→21:55)
[2018-04-17] MEDS ORDERED: PT OWN MED DRAWER 7, Y5N ONE ×2 (04:12→08:12)
[2018-04-17] MEDS: GABAPENTIN 100 MG CAPSULE (FP) PO SCH ×3 (05:42→21:51)
[2018-04-17] MEDS: INSULIN (LEVEMIR) 100 UNITS/ML UNITS SQ SCH ×2 (06:21→21:47)
[2018-04-17] MEDS: INSULIN SLIDING SCALE (NOVOLOG) 1 VIAL SQ SCH ×5 (06:23→21:47)
[2018-04-17 07:32] LABS: BASO % 0.7 % (0-2.0); EOS % 1.8 % (0-4.5); HEMATOCRIT 27.4 % (32.4-45.2); HEMOGLOBIN 9.3 GM/dL (10.7-15.3); LYMPH % 13.4 % (8-40); MCH 27.2 pg (25.7-33.7); MCHC 33.8 g/dl (32.0-36.0); MEAN CELL VOLUME 80.5 fl (80-96); MEAN PLT VOLUME 7.8 fl (7.5-11.1); MONO % 11.5 % (3.8-10.2); NEUT % 72.6 % (42.8-82.8); PLATELET COUNT 340 K/MM3 (134-434); RBC 3.41 M/mm3 (3.60-5.2); RDW 15.6 % (11.6-15.6); WHITE BLOOD COUNT 8.7 K/mm3 (4.0-10.0)
--- NOTE | 2018-04-17 07:59 | PN ---
Progress Note, Physician Chief Complaint: No new complaints , C/O Left leg pain - Current Medication List Current Medications: Active Medications Acetaminophen (Tylenol -) 650 mg PO Q6H PRN PRN Reason: FEVER Last Admin: 04/17/18 01:07 EST Dose: 650 mg Amlodipine Besylate (Norvasc -) 5 mg PO BID [facility] Last Admin: 04/16/18 22:09 Dose: 5 mg Ascorbic Acid (Vitamin C -) 250 mg PO DAILY [facility] Last Admin: 04/16/18 09:38 Dose: 250 mg Aspirin (Asa -) 81 mg PO DAILY [facility] Last Admin: 04/16/18 09:10 Dose: 81 mg Atorvastatin Calcium (Lipitor -) 40 mg PO HS [facility] Last Admin: 04/16/18 22:10 Dose: 40 mg Budesonide/Formoterol Fumarate (Symbicort 160/4.5mcg -) 2 puff IH BID [facility] Last Admin: 04/16/18 22:10 Dose: 2 puff Cholecalciferol (Vitamin D3 -) 1,000 unit PO DAILY [facility] Last Admin: 04/16/18 09:10 Dose: 1,000 unit Clonidine (Catapres -) 0.1 mg PO HS [facility] Last Admin: 04/16/18 22:09 Dose: 0.1 mg Collagenase (Santyl -) 1 applic TP DAILY [facility]; Protocol Last Admin: 04/16/18 12:24 Dose: Not Given Cyclobenzaprine HCl (Flexeril -) 10 mg PO HS [facility] Last Admin: 04/16/18 22:09 Dose: 10 mg Gabapentin (Neurontin -) 100 mg PO TID [facility] Last Admin: 04/16/18 22:09 Dose: 100 mg Glyburide (Diabeta -) 5 mg PO BIDAC [facility] Last Admin: 04/16/18 16:38 Dose: 5 mg HCTZ/Losartan Potassium (Hyzaar -) 2 tab PO DAILY [facility] Last Admin: 04/16/18 09:38 Dose: 2 tab Heparin Sodium (Porcine) (Heparin -) 1,000 unit IVPUSH PRN PRN PRN Reason: Heparin Last Admin: 04/15/18 23:00 Dose: 1,000 unit Heparin Sodium (Porcine) (Heparin -) 5,000 unit IVPUSH PRN PRN PRN Reason: Heparin Last Admin: 04/16/18 09:14 Dose: 5,000 unit Heparin Sodium (Porcine) 25, (000 unit/ Sodium Chloride) 500 mls @ 20 mls/hr IV TITR [facility]; Protocol Last Admin: 04/16/18 16:35 Dose: Not Given Ceftriaxone Sodium 2 gm/ (Dextrose) 100 mls @ 100 mls/hr IVPB DAILY [facility]; Protocol Last Admin: 04/16/18 09:11 Dose: 100 mls/hr Insulin Aspart (Novolog Vial Sliding Scale -) 1 vial SQ ACHS [facility]; Protocol Last Admin: 04/17/18 06:23 Dose: Not Given Insulin Detemir (Levemir Vial) 15 units SQ 0700,2200 [facility] Last Admin: 04/17/18 06:21 Dose: Not Given Montelukast Sodium (Singulair -) 10 mg PO HS [facility] Last Admin: 04/16/18 22:09 Dose: 10 mg Multivitamins (Total B With C -) 1 each PO DAILY [facility] Last Admin: 04/16/18 09:39 Dose: Not Given Non-Formulary Medication (Docosahexanoic Acid/Epa [Fish Oil Softgel]) 1 each PO DAILY [facility] Non-Formulary Medication (Meloxicam) 15 mg PO DAILY [facility] Ondansetron HCl (Zofran Injection) 4 mg IVPUSH Q6H PRN PRN Reason: NAUSEA Silver Sulfadiazine (Silvadene -) 1 applic TP DAILY [facility] Last Admin: 04/16/18 14:14 Dose: Not Given Tramadol HCl (Ultram -) 50 mg PO Q6H PRN PRN Reason: PAIN 4-6 Last Admin: 04/16/18 22:08 Dose: 50 mg - Objective Vital Signs: Vital Signs Temperature 98.2 F 04/17/18 05:00 Pulse Rate 76 04/17/18 05:00 Respiratory Rate 20 04/17/18 05:00 Blood Pressure 139/61 04/17/18 05:00 O2 Sat by Pulse Oximetry (%) 97 04/16/18 21:00 Elderly F not in distress c/o body pain HEENT: MM moist , anemia, PERRLA EOMI NECK: No JVd No Bruit CHEST: Minimal basal crepts CVS: S1S2 R no m/g/r ABD: Obese non tender BS +, Last BM yesterday EXT & BACK: Extensive edema, foul smelling ulcers Left > Rt Venous stasuis chnages [employer]AR[employer]: AOX3 Non focal DERM: B/L infected wounds Labs: CBC, BMP 04/17/18 05:30 INR, PTT INR 1.14 (0.83-1.09) H 04/13/18 14:24 Problem List - Problems (1) Cellulitis Assessment/Plan: Extensive B/L LE cellulitis present with elevated TWBC Lactic acid and fever suggestive of Sepsis grew poly microbial on Zosyn and Vancomycin as per ID recommendation Code(s): L03.90 - CELLULITIS, UNSPECIFIED Qualifiers: Site of cellulitis: extremity Site of cellulitis of extremity: lower extremity Laterality: left Qualified Code(s): L03.116 - Cellulitis of left lower limb (2) Sepsis Assessment/Plan: Improving Extensive B/L LE cellulitis present with elevated TWBC now trending down Lactic acid and fever suggestive of Sepsis grew poly microbial on Zosyn and Vancomycin as per ID recommendation Code(s): A41.9 - SEPSIS, UNSPECIFIED ORGANISM (3) NSTEMI (non-ST elevated myocardial infarction) Assessment/Plan: Elevated Troponin I multiple CAD risk factors most likely Demand Ischemia cont current regimen on Heparin infusion denies any chest pain F/U cardiology recommendations Code(s): I21.4 - NON-ST ELEVATION (NSTEMI) MYOCARDIAL INFARCTION (4) Diabetes Assessment/Plan: T2 with Microangiopathy CKD on Levimir and correction dose Lispro and oral meds will F/U HBa!C optimize Glycemic control. Code(s): E11.9 - TYPE 2 DIABETES MELLITUS WITHOUT COMPLICATIONS Qualifiers: Diabetes mellitus type: type 2 Diabetes mellitus medical terminologist insulin use: with medical terminologist use Diabetes mellitus complication status: with skin complications Diabetes mellitus complication detail: with other skin ulcer Qualified Code(s): E11.622 - Type 2 diabetes mellitus with other skin ulcer; Z79.4 - long term care social worker (current) use of insulin (5) Anemia Assessment/Plan: Chrnic H/H is table Code(s): D64.9 - ANEMIA, UNSPECIFIED (6) HTN (hypertension) Assessment/Plan: Now Well controlled cont all home meds Code(s): I10 - ESSENTIAL (PRIMARY) HYPERTENSION (7) Morbid obesity Assessment/Plan: Morbidly obese BMI 53 will F/U nutritional assessment as out patient on DC Code(s): E66.01 - MORBID (SEVERE) OBESITY DUE TO EXCESS CALORIES (8) Chronic pain Code(s): G89.29 - OTHER CHRONIC PAIN Qualifiers: Chronic pain type: chronic pain syndrome Qualified Code(s): G89.4 - Chronic pain syndrome (9) COPD (chronic obstructive pulmonary disease) Assessment/Plan: On symbicort cont same at present stable Code(s): J44.9 - CHRONIC OBSTRUCTIVE PULMONARY DISEASE, UNSPECIFIED (10) Chronic pain Assessment/Plan: Gabapentin and Tramadol Code(s): G89.29 - OTHER CHRONIC PAIN
[2018-04-17 08:03] LABS: ANION GAP 11 MMOL/L (8-16); BLOOD UREA NITROGEN 21 mg/dL (7-18); CALCIUM 7.8 mg/dL (8.5-10.1); CHLORIDE 103 mmol/L (98-107); CO2 23 mmol/L (21-32); CREATININE 1.1 mg/dL (0.55-1.3); GLUCOSE,RANDOM 99 mg/dL (74-106); POTASSIUM 4.1 mmol/L (3.5-5.1); SODIUM 136 mmol/L (136-145)
[2018-04-17] MEDS ORDERED: DEXTROSE 5%-WATER 100 ML IVPB ONE (08:09)
[2018-04-17] MEDS: traMADol HCL 50 MG TABLET PO PRN ×3 (08:20→20:43)
[2018-04-17] MEDS: ASPIRIN 81 MG CHEWABLE TABLETS PO SCH (10:12)
[2018-04-17] MEDS: amLODIPine BESYLATE 5 MG TABLET (FP) PO SCH ×2 (10:12→21:49)
[2018-04-17] MEDS: HEPARIN NA (PORCINE) 5,000 UNITS/ML 1ML VIAL IVPUSH PRN (10:12)
[2018-04-17] MEDS: CHOLECALCIFEROL (VITAMIN D3) 1,000 UNIT TABLET (FP) PO SCH (10:12)
[2018-04-17] MEDS: BUDESONIDE/FORMETEROL FUMARATE 160/4.5 mcg INHALER IH SCH ×2 (10:30→21:51)
[2018-04-17 10:39] LABS: ACANTHOCYTES 0; ANISOCYTOSIS 0; HELMET CELLS 0; HOWELL-JOLLY BODIES 0; MACROCYTOSIS 0; OVALOCYTE 0; PLATELET ESTIMATE NORMAL; ROULEAU 0; SICKELED CELLS 0; TARGET CELLS 0; TEAR DROP CELLS 0; TOXIC GRANULATION 0
--- NOTE | 2018-04-17 11:35 | PN ---
Progress Note (short form) - Note Progress Note: Progress Note: s: no cp sob palps dizzy o: Vital Signs Period Temp Pulse Resp BP Sys/Petersen Pulse Ox Last 24 Hr 98 F-98.9 F 76-88 20-20 131-180/54-80 97 nad no jvd rrr s1s2 no mrg cta bl nl eff aaox3 trace le edema, nonpitting edema, chronic stasis changes of skin abd nt nd pos bs no jaundice diaphoresis Current Medications Acetaminophen (Tylenol -) 650 mg PO Q6H PRN PRN Reason: FEVER Last Admin: 04/17/18 01:07 EST Dose: 650 mg Amlodipine Besylate (Norvasc -) 5 mg PO BID [facility] Last Admin: 04/17/18 10:12 Dose: 5 mg Ascorbic Acid (Vitamin C -) 250 mg PO DAILY [facility] Last Admin: 04/16/18 09:38 Dose: 250 mg Aspirin (Asa -) 81 mg PO DAILY [facility] Last Admin: 04/17/18 10:12 Dose: 81 mg Atorvastatin Calcium (Lipitor -) 40 mg PO HS [facility] Last Admin: 04/16/18 22:10 Dose: 40 mg Budesonide/Formoterol Fumarate (Symbicort 160/4.5mcg -) 2 puff IH BID [facility] Last Admin: 04/16/18 22:10 Dose: 2 puff Cholecalciferol (Vitamin D3 -) 1,000 unit PO DAILY [facility] Last Admin: 04/17/18 10:12 Dose: 1,000 unit Clonidine (Catapres -) 0.1 mg PO HS [facility] Last Admin: 04/16/18 22:09 Dose: 0.1 mg Collagenase (Santyl -) 1 applic TP DAILY [facility]; Protocol Last Admin: 04/16/18 12:24 Dose: Not Given Cyclobenzaprine HCl (Flexeril -) 10 mg PO HS [facility] Last Admin: 04/16/18 22:09 Dose: 10 mg Gabapentin (Neurontin -) 100 mg PO TID [facility] Last Admin: 04/16/18 22:09 Dose: 100 mg Glyburide (Diabeta -) 5 mg PO BIDAC [facility] Last Admin: 04/16/18 16:38 Dose: 5 mg HCTZ/Losartan Potassium (Hyzaar -) 2 tab PO DAILY [facility] Last Admin: 04/16/18 09:38 Dose: 2 tab Heparin Sodium (Porcine) (Heparin -) 1,000 unit IVPUSH PRN PRN PRN Reason: Heparin Last Admin: 04/17/18 10:12 Dose: 1,000 unit Heparin Sodium (Porcine) (Heparin -) 5,000 unit IVPUSH PRN PRN PRN Reason: Heparin Last Admin: 04/16/18 09:14 Dose: 5,000 unit Heparin Sodium (Porcine) 25, (000 unit/ Sodium Chloride) 500 mls @ 20 mls/hr IV TITR [facility]; Protocol Last Admin: 04/16/18 16:35 Dose: Not Given Ceftriaxone Sodium 2 gm/ (Dextrose) 100 mls @ 100 mls/hr IVPB DAILY [facility]; Protocol Last Admin: 04/16/18 09:11 Dose: 100 mls/hr Insulin Aspart (Novolog Vial Sliding Scale -) 1 vial SQ ACHS [facility]; Protocol Last Admin: 04/17/18 06:23 Dose: Not Given Insulin Detemir (Levemir Vial) 15 units SQ 0700,2200 [facility] Last Admin: 04/17/18 06:21 Dose: Not Given Montelukast Sodium (Singulair -) 10 mg PO HS [facility] Last Admin: 04/16/18 22:09 Dose: 10 mg Multivitamins (Total B With C -) 1 each PO DAILY [facility] Last Admin: 04/16/18 09:39 Dose: Not Given Non-Formulary Medication (Docosahexanoic Acid/Epa [Fish Oil Softgel]) 1 each PO DAILY [facility] Non-Formulary Medication (Meloxicam) 15 mg PO DAILY [facility] Ondansetron HCl (Zofran Injection) 4 mg IVPUSH Q6H PRN PRN Reason: NAUSEA Silver Sulfadiazine (Silvadene -) 1 applic TP DAILY [facility] Last Admin: 04/16/18 14:14 Dose: Not Given Tramadol HCl (Ultram -) 50 mg PO Q6H PRN PRN Reason: PAIN 4-6 Last Admin: 04/17/18 08:20 Dose: 50 mg cxr: clear lungs ecg: sr, nl intervals, no ischemic changes echo 03/2018: mild lvh, nl lv/rv, no sig valve path a/p: 67 f hx morbid obesity, venous insuff/edema, chronic leg wounds, dm, htn, anemia, here with fever. sepsis, cellulitis: -abx per PMD, ID venous insuff/le edema: -on lasix at home, held here due to michelle likely from sepsis, Cr stable now. cont holding htn: -cont home meds anemia: -pt has baseline anemia but hgb dropped into 7's 04/14, no obvious bleeding, may just be dilutional from ivfs she got. got prbcs, hgb stable NSTEMI: -trop was normal then repeat increased to 1.6 (now trending down). Possibly just related to sepsis and michelle but she did mention chest pressure and the jump from normal to 1.6 may be consistent with ACS. ECG and echo unremarkable. Already getting asa, hep gtt. hold off on plavix for now given her anemia requiring prbcs. Monitor hgb. Tele. Trend trops. Started lipitor. -ischemic eval after acute issues resolve - dc heparin gtt
[2018-04-17] MEDS: LOSARTAN 50MG/HCTZ 12.5MG 1 TAB (FP) PO SCH (12:24)
[2018-04-17] MEDS: VITAMIN B COMPLEX W/C COMBO TABLET (FP) PO SCH (12:24)
[2018-04-17] MEDS: ASCORBIC ACID 250 MG TABLET (FP) PO SCH (12:25)
[2018-04-17] MEDS: CEFTRIAXONE 2 GM in DEXTROSE 5%-WATER 100 ML IVPB SCH (12:25)
[2018-04-17] MEDS: SILVER SULFADIAZINE 1% TOP CREAM 400 GM JAR TP SCH (14:32)
[2018-04-17] MEDS: COLLAGENASE CLOSTRIDIUM HIST. 30 GRAMS TUBE TP SCH (14:32)
[2018-04-17] MEDS: glyBURIDE 5 MG TABLET (UD) PO SCH (17:35)
[2018-04-17] MEDS: ATORVASTATIN CA 40 MG TABLET (FP) PO SCH (21:49)
[2018-04-17] MEDS: cloNIDine HCL 0.1 MG TABLET PO SCH (21:50)
[2018-04-17] MEDS: MONTELUKAST NA 10 MG TABLET PO SCH (21:50)
[2018-04-17] MEDS: CYCLOBENZAPRINE HCL 10 MG TABLET (FP) PO SCH (21:50)
[2018-04-17] MEDS ORDERED: cloNIDine HCL 0.1 MG TABLET PO SCH (22:00)
[2018-04-18] MEDS: traMADol HCL 50 MG TABLET PO PRN ×2 (05:41→12:10)
[2018-04-18] MEDS: GABAPENTIN 100 MG CAPSULE (FP) PO SCH ×3 (05:41→21:26)
[2018-04-18] MEDS: INSULIN SLIDING SCALE (NOVOLOG) 1 VIAL SQ SCH ×3 (06:07→21:20)
[2018-04-18] MEDS: INSULIN (LEVEMIR) 100 UNITS/ML UNITS SQ SCH ×2 (06:07→21:25)
[2018-04-18] MEDS: glyBURIDE 5 MG TABLET (UD) PO SCH ×2 (06:09→17:06)
[2018-04-18 06:29] LABS: BASO % 0.6 % (0-2.0); EOS % 2.4 % (0-4.5); HEMATOCRIT 24.4 % (32.4-45.2); HEMOGLOBIN 8.3 GM/dL (10.7-15.3); LYMPH % 11.8 % (8-40); MCH 27.6 pg (25.7-33.7); MCHC 34.1 g/dl (32.0-36.0); MEAN CELL VOLUME 80.9 fl (80-96); MEAN PLT VOLUME 7.5 fl (7.5-11.1); MONO % 11.2 % (3.8-10.2); PLATELET COUNT 327 K/MM3 (134-434); RBC 3.02 M/mm3 (3.60-5.2); RDW 15.8 % (11.6-15.6); WHITE BLOOD COUNT 8.7 K/mm3 (4.0-10.0)
[2018-04-18 06:54] LABS: ANION GAP 5 MMOL/L (8-16); BLOOD UREA NITROGEN 25 mg/dL (7-18); CALCIUM 7.9 mg/dL (8.5-10.1); CHLORIDE 104 mmol/L (98-107); CO2 27 mmol/L (21-32); CREATININE 1.2 mg/dL (0.55-1.3); GLUCOSE,RANDOM 100 mg/dL (74-106); POTASSIUM 4.7 mmol/L (3.5-5.1); SODIUM 137 mmol/L (136-145)
[2018-04-18] MEDS ORDERED: DEXTROSE 5%-WATER 100 ML IVPB ONE (09:41)
[2018-04-18] MEDS ORDERED: PT OWN MED DRAWER 7, Y5N ONE ×2 (09:49→18:21)
[2018-04-18] MEDS: CEFTRIAXONE 2 GM in DEXTROSE 5%-WATER 100 ML IVPB SCH (10:47)
[2018-04-18] MEDS: ASPIRIN 81 MG CHEWABLE TABLETS PO SCH (10:48)
[2018-04-18] MEDS: CHOLECALCIFEROL (VITAMIN D3) 1,000 UNIT TABLET (FP) PO SCH (10:48)
[2018-04-18] MEDS: cloNIDine HCL 0.1 MG TABLET PO SCH ×2 (10:48→21:19)
[2018-04-18] MEDS: amLODIPine BESYLATE 5 MG TABLET (FP) PO SCH ×2 (10:48→21:26)
[2018-04-18] MEDS: LOSARTAN 50MG/HCTZ 12.5MG 1 TAB (FP) PO SCH (10:49)
[2018-04-18] MEDS: COLLAGENASE CLOSTRIDIUM HIST. 30 GRAMS TUBE TP SCH (10:50)
[2018-04-18] MEDS: SILVER SULFADIAZINE 1% TOP CREAM 400 GM JAR TP SCH (10:50)
[2018-04-18] MEDS: BUDESONIDE/FORMETEROL FUMARATE 160/4.5 mcg INHALER IH SCH ×2 (10:50→21:26)
[2018-04-18] MEDS: VITAMIN B COMPLEX W/C COMBO TABLET (FP) PO SCH (10:51)
[2018-04-18] MEDS: ASCORBIC ACID 250 MG TABLET (FP) PO SCH (10:51)
[2018-04-18 12:18] LABS: ANISOCYTOSIS 1+; MACROCYTOSIS 0; PLATELET ESTIMATE NORMAL
--- NOTE | 2018-04-18 12:48 | CONSULT ---
Consult Consult Specialty:: Vascular Surgery Reason for Consultation:: bl lower ext venous stasis ulcers - History Source Limitations to Obtaining History: No Limitations - Past Medical History Cardio/Vascular: Yes: HTN, Hyperlipdemia Endocrine: Yes: Diabetes Mellitus - Past Surgical History Past Surgical History: Yes: Amputation (L toe) - Alcohol/Substance Use Hx Alcohol Use: No History of Substance Use: reports: None - Smoking History Smoking history: Never smoked Have you smoked in the past 12 months: No - Social History ADL: Family Assistance History of Recent Travel: No Home Medications - Allergies Allergies/Adverse Reactions: Allergies Allergy/AdvReac Type Severity Reaction Status Date / Time No Known Allergies Allergy Verified 04/13/18 14:17 - Home Medications Home Medications: Ambulatory Orders Aspirin [Baby Aspirin] 81 mg PO DAILY 10/29/11 Furosemide [Lasix] 20 mg PO DAILY 10/29/11 Montelukast Na [Singulair] 10 mg PO HS 10/29/11 Gabapentin 1 cap PO TID 07/25/13 Amlodipine Besylate [Norvasc -] 5 mg PO BID 09/11/13 Ascorbic Acid [Vitamin C] 250 mg PO DAILY 09/11/13 Cholecalciferol (Vitamin D3) [Vitamin D] 1,000 unit PO DAILY 09/11/13 Docosahexanoic Acid/Epa [Fish Oil Softgel] 1 each PO DAILY 09/11/13 Glyburide 5 mg PO BID 09/11/13 Ibuprofen [Advil -] 400 mg PO QID PRN 09/11/13 Insulin Glargine,Hum.rec.anlog [Lantus Solostar PEN -] 30 units SCJ DAILY Losartan/Hydrochlorothiazide [Losartan-Hctz 100-25 mg Tab] 1 tab PO DAILY Meloxicam [Mobic -] 15 mg PO DAILY 09/11/13 Tramadol HCl 50 mg PO QID PRN 09/11/13 Vitamin B Complex 1 each PO DAILY 09/11/13 oxyCODONE HCL [Roxicodone -] 5 mg PO Q6H PRN 09/11/13 Clonidine 0.1 mg PO HS 12/26/13 Cyclobenzaprine HCl 10 mg PO HS 10/23/14 Family Disease History - Family Disease History Family Disease History: CA: Father (prostate), Other: Mother (CVA), Brother ( thyroid nodule) Review of Systems - Review of Systems Constitutional: reports: No Symptoms Eyes: reports: No Symptoms HENT: reports: No Symptoms Neck: reports: No Symptoms Cardiovascular: reports: No Symptoms Respiratory: reports: No Symptoms Gastrointestinal: reports: No Symptoms Genitourinary: reports: No Symptoms Breasts: reports: No Symptoms Reported Musculoskeletal: reports: No Symptoms Integumentary: reports: No Symptoms Neurological: reports: No Symptoms Endocrine: reports: No Symptoms Hematology/Lymphatic: reports: No Symptoms Psychiatric: reports: No Symptoms Physical Exam Vital Signs: Vital Signs Temperature 98.4 F 04/18/18 05:00 Pulse Rate 65 04/18/18 05:00 Respiratory Rate 20 04/18/18 05:00 Blood Pressure 133/71 04/18/18 05:00 O2 Sat by Pulse Oximetry (%) 97 04/17/18 21:00 Constitutional: Yes: Well Nourished, No Distress, Calm Eyes: Yes: WNL, Conjunctiva Clear, EOM Intact HENT: Yes: WNL, Atraumatic, Normocephalic Neck: Yes: WNL, Supple, Trachea Midline Cardiovascular: Yes: WNL, Regular Rate and Rhythm Respiratory: Yes: WNL, Regular, CTA Bilaterally Gastrointestinal: Yes: WNL, Normal Bowel Sounds ...Rectal Exam: Yes: WNL Renal/: Yes: WNL Breast(s): Yes: WNL Musculoskeletal: Yes: WNL Extremities: Yes: WNL, Other (bl lower ext venous stasis ulcers Left heel ulcer ) Edema: Yes Edema: LLE: 2+, RLE: 2+ Integumentary: Yes: WNL Neurological: Yes: WNL, Alert, Oriented ...Motor Strength: WNL Psychiatric: Yes: WNL Labs: CBC, BMP 04/18/18 05:30 04/18/18 05:30 Problem List - Problems (1) Venous stasis ulcers of both lower extremities Assessment/Plan: Bilateral lower extremity venous stasis ulcers with left heel ulcer. 1. Pt has silver alginate bedside. Please apply every other day with deidra to venous stasis ulcers. 2. Santyl to left heel ulcer daily Code(s): I83.019 - VARICOSE VEINS OF RIGHT LOWER EXTREMITY W ULCER OF UNSP SITE ; I83.029 - VARICOSE VEINS OF LEFT LOWER EXTREMITY W ULCER OF UNSP SITE; L97.919 - NON-PRS CHRONIC ULC UNSP PRT OF R LOW LEG W UNSP SEVERITY; L97.929 - NON-PRS CHRONIC ULC UNSP PRT OF L LOW LEG W UNSP SEVERITY
--- NOTE | 2018-04-18 14:15 | PN ---
Progress Note, Physician History of Present Illness: Awake, alert Temps down Afebrile Reports less leg pain WBC decreased 8.7 Repeat BC no growth - Current Medication List Current Medications: Active Medications Acetaminophen (Tylenol -) 650 mg PO Q6H PRN PRN Reason: FEVER Last Admin: 04/17/18 21:55 Dose: 650 mg Amlodipine Besylate (Norvasc -) 5 mg PO BID [facility] Last Admin: 04/18/18 10:48 Dose: 5 mg Ascorbic Acid (Vitamin C -) 250 mg PO DAILY [facility] Last Admin: 04/18/18 10:51 Dose: 250 mg Aspirin (Asa -) 81 mg PO DAILY [facility] Last Admin: 04/18/18 10:48 Dose: 81 mg Atorvastatin Calcium (Lipitor -) 40 mg PO HS [facility] Last Admin: 04/17/18 21:49 Dose: 40 mg Budesonide/Formoterol Fumarate (Symbicort 160/4.5mcg -) 2 puff IH BID [facility] Last Admin: 04/18/18 10:50 Dose: 2 puff Cholecalciferol (Vitamin D3 -) 1,000 unit PO DAILY [facility] Last Admin: 04/18/18 10:48 Dose: 1,000 unit Clonidine (Catapres -) 0.2 mg PO BID [facility] Last Admin: 04/18/18 10:48 Dose: 0.2 mg Collagenase (Santyl -) 1 applic TP DAILY [facility]; Protocol Last Admin: 04/18/18 10:50 Dose: Not Given Cyclobenzaprine HCl (Flexeril -) 10 mg PO HS [facility] Last Admin: 04/17/18 21:50 Dose: 10 mg Gabapentin (Neurontin -) 100 mg PO TID [facility] Last Admin: 04/18/18 05:41 Dose: 100 mg Glyburide (Diabeta -) 5 mg PO BIDAC [facility] Last Admin: 04/18/18 06:09 Dose: 5 mg HCTZ/Losartan Potassium (Hyzaar -) 2 tab PO DAILY [facility] Last Admin: 04/18/18 10:49 Dose: 2 tab Ceftriaxone Sodium 2 gm/ (Dextrose) 100 mls @ 100 mls/hr IVPB DAILY [facility]; Protocol Last Admin: 04/18/18 10:47 Dose: 100 mls/hr Insulin Aspart (Novolog Vial Sliding Scale -) 1 vial SQ ACHS [facility]; Protocol Last Admin: 04/18/18 12:11 Dose: Not Given Insulin Detemir (Levemir Vial) 15 units SQ 0700,2200 [facility] Last Admin: 04/18/18 06:07 Dose: Not Given Montelukast Sodium (Singulair -) 10 mg PO HS [facility] Last Admin: 04/17/18 21:50 Dose: 10 mg Multivitamins (Total B With C -) 1 each PO DAILY [facility] Last Admin: 04/18/18 10:51 Dose: 1 each Non-Formulary Medication (Docosahexanoic Acid/Epa [Fish Oil Softgel]) 1 each PO DAILY [facility] Ondansetron HCl (Zofran Injection) 4 mg IVPUSH Q6H PRN PRN Reason: NAUSEA Silver Sulfadiazine (Silvadene -) 1 applic TP DAILY [facility] Last Admin: 04/18/18 10:50 Dose: Not Given Tramadol HCl (Ultram -) 50 mg PO Q6H PRN PRN Reason: PAIN 4-6 Last Admin: 04/18/18 12:10 Dose: 50 mg - Objective Vital Signs: Vital Signs Temperature 98 F 04/18/18 09:00 Pulse Rate 70 04/18/18 09:00 Respiratory Rate 20 04/18/18 09:00 Blood Pressure 127/66 04/18/18 09:00 O2 Sat by Pulse Oximetry (%) 97 04/18/18 09:00 Constitutional: Yes: No Distress, Obese Eyes: Yes: Conjunctiva Clear Cardiovascular: Yes: Regular Rate and Rhythm, S1, S2 Respiratory: Yes: CTA Bilaterally Gastrointestinal: Yes: Normal Bowel Sounds, Soft, Abdomen, Obese. No: Tenderness Edema: Yes Integumentary: Yes: Other (+ B/L distal LE ulcers, dry. Less weepage. + dry L heel ulcer. + erythema/warmth distal LE) Labs: CBC, BMP 04/18/18 05:30 04/18/18 05:30 INR, PTT INR 1.14 (0.83-1.09) H 04/13/18 14:24 Assessment/Plan Grp B strep bacteremia/ sepsis secondary to wound source Infected chronic leg ulcers UTI Morbid obesity Continue ceftriaxone Local wound care
--- NOTE | 2018-04-18 14:35 | PN ---
Progress Note (short form) - Note Progress Note: Progress Note: s: no cp sob palps dizzy. complains of bilateral leg pain o: Vital Signs Period Temp Pulse Resp BP Sys/Petersen Pulse Ox Last 24 Hr 98 F-98.7 F 65-87 18-20 127-185/41-77 97-97 nad no jvd rrr s1s2 no mrg cta bl nl eff aaox3 trace le edema, nonpitting edema, chronic stasis changes of skin abd nt nd pos bs no jaundice diaphoresis Current Medications Acetaminophen (Tylenol -) 650 mg PO Q6H PRN PRN Reason: FEVER Last Admin: 04/17/18 21:55 Dose: 650 mg Amlodipine Besylate (Norvasc -) 5 mg PO BID [facility] Last Admin: 04/18/18 10:48 Dose: 5 mg Ascorbic Acid (Vitamin C -) 250 mg PO DAILY [facility] Last Admin: 04/18/18 10:51 Dose: 250 mg Aspirin (Asa -) 81 mg PO DAILY [facility] Last Admin: 04/18/18 10:48 Dose: 81 mg Atorvastatin Calcium (Lipitor -) 40 mg PO HS [facility] Last Admin: 04/17/18 21:49 Dose: 40 mg Budesonide/Formoterol Fumarate (Symbicort 160/4.5mcg -) 2 puff IH BID [facility] Last Admin: 04/18/18 10:50 Dose: 2 puff Cholecalciferol (Vitamin D3 -) 1,000 unit PO DAILY [facility] Last Admin: 04/18/18 10:48 Dose: 1,000 unit Clonidine (Catapres -) 0.2 mg PO BID [facility] Last Admin: 04/18/18 10:48 Dose: 0.2 mg Collagenase (Santyl -) 1 applic TP DAILY [facility]; Protocol Last Admin: 04/18/18 10:50 Dose: Not Given Cyclobenzaprine HCl (Flexeril -) 10 mg PO HS [facility] Last Admin: 04/17/18 21:50 Dose: 10 mg Gabapentin (Neurontin -) 100 mg PO TID [facility] Last Admin: 04/18/18 05:41 Dose: 100 mg Glyburide (Diabeta -) 5 mg PO BIDAC [facility] Last Admin: 04/18/18 06:09 Dose: 5 mg HCTZ/Losartan Potassium (Hyzaar -) 2 tab PO DAILY [facility] Last Admin: 04/18/18 10:49 Dose: 2 tab Ceftriaxone Sodium 2 gm/ (Dextrose) 100 mls @ 100 mls/hr IVPB DAILY [facility]; Protocol Last Admin: 04/18/18 10:47 Dose: 100 mls/hr Insulin Aspart (Novolog Vial Sliding Scale -) 1 vial SQ ACHS [facility]; Protocol Last Admin: 04/18/18 12:11 Dose: Not Given Insulin Detemir (Levemir Vial) 15 units SQ 0700,2200 [facility] Last Admin: 04/18/18 06:07 Dose: Not Given Montelukast Sodium (Singulair -) 10 mg PO HS [facility] Last Admin: 04/17/18 21:50 Dose: 10 mg Multivitamins (Total B With C -) 1 each PO DAILY [facility] Last Admin: 04/18/18 10:51 Dose: 1 each Non-Formulary Medication (Docosahexanoic Acid/Epa [Fish Oil Softgel]) 1 each PO DAILY [facility] Ondansetron HCl (Zofran Injection) 4 mg IVPUSH Q6H PRN PRN Reason: NAUSEA Silver Sulfadiazine (Silvadene -) 1 applic TP DAILY [facility] Last Admin: 04/18/18 10:50 Dose: Not Given Tramadol HCl (Ultram -) 50 mg PO Q6H PRN PRN Reason: PAIN 4-6 Last Admin: 04/18/18 12:10 Dose: 50 mg cxr: clear lungs ecg: sr, nl intervals, no ischemic changes echo 03/2018: mild lvh, nl lv/rv, no sig valve path a/p: 67 f hx morbid obesity, venous insuff/edema, chronic leg wounds, dm, htn, anemia, here with fever. sepsis, cellulitis: -abx per PMD, ID - vascular consulted, Dr. Osuna venous insuff/le edema: -on lasix at home, held here due to michelle likely from sepsis, Cr stable now. cont holding htn: -cont home meds anemia: -pt has baseline anemia but hgb dropped into 7's 04/14, no obvious bleeding, may just be dilutional from ivfs she got. got prbcs, hgb stable NSTEMI: -trop was normal then repeat increased to 1.6 (now trending down). Possibly just related to sepsis and michelle but she did mention chest pressure and the jump from normal to 1.6 may be consistent with ACS. ECG and echo unremarkable. received hep gtt. deferred plavix for now given her anemia requiring prbcs. - continue lipitor, aspirin -ischemic eval after acute issues resolve
--- NOTE | 2018-04-18 16:30 | PN ---
Progress Note, Physician Chief Complaint: Ms Hanley says she is doing better. Denies cp, sob, n/v. - Current Medication List Current Medications: Active Medications Acetaminophen (Tylenol -) 650 mg PO Q6H PRN PRN Reason: FEVER Last Admin: 04/17/18 21:55 Dose: 650 mg Amlodipine Besylate (Norvasc -) 5 mg PO BID [facility] Last Admin: 04/18/18 10:48 Dose: 5 mg Ascorbic Acid (Vitamin C -) 250 mg PO DAILY [facility] Last Admin: 04/18/18 10:51 Dose: 250 mg Aspirin (Asa -) 81 mg PO DAILY [facility] Last Admin: 04/18/18 10:48 Dose: 81 mg Atorvastatin Calcium (Lipitor -) 40 mg PO HS [facility] Last Admin: 04/17/18 21:49 Dose: 40 mg Budesonide/Formoterol Fumarate (Symbicort 160/4.5mcg -) 2 puff IH BID [facility] Last Admin: 04/18/18 10:50 Dose: 2 puff Cholecalciferol (Vitamin D3 -) 1,000 unit PO DAILY [facility] Last Admin: 04/18/18 10:48 Dose: 1,000 unit Clonidine (Catapres -) 0.2 mg PO BID [facility] Last Admin: 04/18/18 10:48 Dose: 0.2 mg Collagenase (Santyl -) 1 applic TP DAILY [facility]; Protocol Last Admin: 04/18/18 10:50 Dose: Not Given Cyclobenzaprine HCl (Flexeril -) 10 mg PO HS [facility] Last Admin: 04/17/18 21:50 Dose: 10 mg Gabapentin (Neurontin -) 100 mg PO TID [facility] Last Admin: 04/18/18 05:41 Dose: 100 mg Glyburide (Diabeta -) 5 mg PO BIDAC [facility] Last Admin: 04/18/18 06:09 Dose: 5 mg HCTZ/Losartan Potassium (Hyzaar -) 2 tab PO DAILY [facility] Last Admin: 04/18/18 10:49 Dose: 2 tab Ceftriaxone Sodium 2 gm/ (Dextrose) 100 mls @ 100 mls/hr IVPB DAILY [facility]; Protocol Last Admin: 04/18/18 10:47 Dose: 100 mls/hr Insulin Aspart (Novolog Vial Sliding Scale -) 1 vial SQ ACHS [facility]; Protocol Last Admin: 04/18/18 12:11 Dose: Not Given Insulin Detemir (Levemir Vial) 15 units SQ 0700,2200 [facility] Last Admin: 04/18/18 06:07 Dose: Not Given Montelukast Sodium (Singulair -) 10 mg PO HS [facility] Last Admin: 04/17/18 21:50 Dose: 10 mg Multivitamins (Total B With C -) 1 each PO DAILY [facility] Last Admin: 04/18/18 10:51 Dose: 1 each Ondansetron HCl (Zofran Injection) 4 mg IVPUSH Q6H PRN PRN Reason: NAUSEA Silver Sulfadiazine (Silvadene -) 1 applic TP DAILY [facility] Last Admin: 04/18/18 10:50 Dose: Not Given Tramadol HCl (Ultram -) 50 mg PO Q6H PRN PRN Reason: PAIN 4-6 Last Admin: 04/18/18 12:10 Dose: 50 mg - Objective Vital Signs: Vital Signs Temperature 36.8 C 04/18/18 15:28 Pulse Rate 80 04/18/18 15:28 Respiratory Rate 20 04/18/18 15:28 Blood Pressure 147/60 04/18/18 15:28 O2 Sat by Pulse Oximetry (%) 97 04/18/18 09:00 Constitutional: Yes: No Distress, Calm, Obese Cardiovascular: Yes: Regular Rate and Rhythm. No: Gallop, Murmur, Rub Respiratory: Yes: Regular, CTA Bilaterally. No: Rales, Rhonchi, Wheezes Gastrointestinal: Yes: Normal Bowel Sounds, Soft. No: Distention, Tenderness Extremities: Yes: Other (bilateral LE wounds) Edema: No Labs: CBC, BMP 04/18/18 05:30 04/18/18 05:30 INR, PTT INR 1.14 (0.83-1.09) H 04/13/18 14:24 Problem List - Problems (1) Sepsis Code(s): A41.9 - SEPSIS, UNSPECIFIED ORGANISM (2) Cellulitis Code(s): L03.90 - CELLULITIS, UNSPECIFIED Qualifiers: Site of cellulitis: extremity Site of cellulitis of extremity: lower extremity Laterality: left Qualified Code(s): L03.116 - Cellulitis of left lower limb (3) Foot ulcer, left Code(s): L97.529 - NON-PRESSURE CHRONIC ULCER OTH PRT LEFT FOOT W UNSP SEVERITY (4) Diabetes Code(s): E11.9 - TYPE 2 DIABETES MELLITUS WITHOUT COMPLICATIONS Qualifiers: Diabetes mellitus type: type 2 Diabetes mellitus shelter insulin use: with watermaster use Diabetes mellitus complication status: with skin complications Diabetes mellitus complication detail: with other skin ulcer Qualified Code(s): E11.622 - Type 2 diabetes mellitus with other skin ulcer; Z79.4 - FDC (current) use of insulin (5) HTN (hypertension) Code(s): I10 - ESSENTIAL (PRIMARY) HYPERTENSION (6) Leg edema Code(s): R60.0 - LOCALIZED EDEMA (7) Morbid obesity Code(s): E66.01 - MORBID (SEVERE) OBESITY DUE TO EXCESS CALORIES (8) Chronic pain Code(s): G89.29 - OTHER CHRONIC PAIN Qualifiers: Chronic pain type: chronic pain syndrome Qualified Code(s): G89.4 - Chronic pain syndrome (9) NSTEMI (non-ST elevated myocardial infarction) Code(s): I21.4 - NON-ST ELEVATION (NSTEMI) MYOCARDIAL INFARCTION Assessment/Plan (1) Sepsis Assessment/Plan: -cultures resulted -ID following -resolved Code(s): A41.9 - SEPSIS, UNSPECIFIED ORGANISM (2) Cellulitis Assessment/Plan: -appreciate wound care assistance -continue rocephin -source of sepsis -ID note reviewed Code(s): L03.90 - CELLULITIS, UNSPECIFIED Qualifiers: Site of cellulitis: extremity Site of cellulitis of extremity: lower extremity Laterality: left Qualified Code(s): L03.116 - Cellulitis of left lower limb (3) Foot ulcer, left Assessment/Plan: -as above Code(s): L97.529 - NON-PRESSURE CHRONIC ULCER OTH PRT LEFT FOOT W UNSP SEVERITY (4) Diabetes Assessment/Plan: -diabetic diet -continue levemir 15 units bid -continue FSBS and SSI -controlled Code(s): E11.9 - TYPE 2 DIABETES MELLITUS WITHOUT COMPLICATIONS Qualifiers: Diabetes mellitus type: type 2 Diabetes mellitus watermaster insulin use: with watermaster use Diabetes mellitus complication status: with skin complications Diabetes mellitus complication detail: with other skin ulcer Qualified Code(s): E11.622 - Type 2 diabetes mellitus with other skin ulcer; 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 of insulin (5) HTN (hypertension) Assessment/Plan: -continue amlodipine and losartan HCT -monitor Code(s): I10 - ESSENTIAL (PRIMARY) HYPERTENSION (6) NSTEMI Assessment/Plan: -case d/w cardiology -heparin gtt stopped -continue medical management Code(s): R07.89 - OTHER CHEST PAIN (7) Leg edema Assessment/Plan: -ECHO reviewed, no sign of CHF -leg edema secondary to lymphedema -holding lasix secondary to sepsis Code(s): R60.0 - LOCALIZED EDEMA (8) Morbid obesity Assessment/Plan: -outpatient regimen for weight loss Code(s): E66.01 - MORBID (SEVERE) OBESITY DUE TO EXCESS CALORIES (9) Chronic pain Assessment/Plan: -continue home regimen Code(s): G89.29 - OTHER CHRONIC PAIN Qualifiers: Chronic pain type: chronic pain syndrome Qualified Code(s): G89.4 - Chronic pain syndrome (10) Anemia -stable
[2018-04-18] MEDS: MONTELUKAST NA 10 MG TABLET PO SCH (21:19)
[2018-04-18] MEDS: CYCLOBENZAPRINE HCL 10 MG TABLET (FP) PO SCH (21:19)
[2018-04-18] MEDS: ATORVASTATIN CA 40 MG TABLET (FP) PO SCH (21:26)
[2018-04-19] MEDS: GABAPENTIN 100 MG CAPSULE (FP) PO SCH ×3 (06:46→22:22)
[2018-04-19] MEDS ORDERED: PT OWN MED DRAWER 7, Y5N ONE ×2 (06:48→11:15)
[2018-04-19 07:01] LABS: HEMATOCRIT 24.5 % (32.4-45.2); HEMOGLOBIN 8.3 GM/dL (10.7-15.3); MCH 27.4 pg (25.7-33.7); MCHC 33.9 g/dl (32.0-36.0); MEAN CELL VOLUME 80.8 fl (80-96); MEAN PLT VOLUME 7.3 fl (7.5-11.1); PLATELET COUNT 377 K/MM3 (134-434); RBC 3.03 M/mm3 (3.60-5.2); RDW 16.1 % (11.6-15.6); WHITE BLOOD COUNT 10.7 K/mm3 (4.0-10.0)
[2018-04-19] MEDS: INSULIN SLIDING SCALE (NOVOLOG) 1 VIAL SQ SCH ×4 (07:10→22:26)
[2018-04-19 07:41] LABS: ANION GAP 6 MMOL/L (8-16); BLOOD UREA NITROGEN 28 mg/dL (7-18); CALCIUM 8.4 mg/dL (8.5-10.1); CHLORIDE 104 mmol/L (98-107); CO2 28 mmol/L (21-32); GLUCOSE,RANDOM 97 mg/dL (74-106); MAGNESIUM 2.4 mg/dL (1.8-2.4); PHOSPHOROUS 4.5 mg/dL (2.5-4.9); POTASSIUM 4.8 mmol/L (3.5-5.1); SODIUM 138 mmol/L (136-145)
--- NOTE | 2018-04-19 09:15 | PN ---
Progress Note, Physician Chief Complaint: Ms Hanley is without complaint. No cp, sob, n/v. - Current Medication List Current Medications: Active Medications Acetaminophen (Tylenol -) 650 mg PO Q6H PRN PRN Reason: FEVER Last Admin: 04/17/18 21:55 Dose: 650 mg Amlodipine Besylate (Norvasc -) 5 mg PO BID [facility] Last Admin: 04/18/18 21:26 Dose: 5 mg Ascorbic Acid (Vitamin C -) 250 mg PO DAILY [facility] Last Admin: 04/18/18 10:51 Dose: 250 mg Aspirin (Asa -) 81 mg PO DAILY [facility] Last Admin: 04/18/18 10:48 Dose: 81 mg Atorvastatin Calcium (Lipitor -) 40 mg PO HS [facility] Last Admin: 04/18/18 21:26 Dose: 40 mg Budesonide/Formoterol Fumarate (Symbicort 160/4.5mcg -) 2 puff IH BID [facility] Last Admin: 04/18/18 21:26 Dose: 2 puff Cholecalciferol (Vitamin D3 -) 1,000 unit PO DAILY [facility] Last Admin: 04/18/18 10:48 Dose: 1,000 unit Clonidine (Catapres -) 0.2 mg PO BID [facility] Last Admin: 04/18/18 21:19 Dose: 0.2 mg Collagenase (Santyl -) 1 applic TP DAILY [facility]; Protocol Last Admin: 04/18/18 10:50 Dose: Not Given Cyclobenzaprine HCl (Flexeril -) 10 mg PO HS [facility] Last Admin: 04/18/18 21:19 Dose: 10 mg Gabapentin (Neurontin -) 100 mg PO TID [facility] Last Admin: 04/19/18 06:46 Dose: 100 mg Glyburide (Diabeta -) 5 mg PO BIDAC [facility] Last Admin: 04/18/18 17:06 Dose: 5 mg HCTZ/Losartan Potassium (Hyzaar -) 2 tab PO DAILY [facility] Last Admin: 04/18/18 10:49 Dose: 2 tab Ceftriaxone Sodium 2 gm/ (Dextrose) 100 mls @ 100 mls/hr IVPB DAILY [facility]; Protocol Last Admin: 04/18/18 10:47 Dose: 100 mls/hr Insulin Aspart (Novolog Vial Sliding Scale -) 1 vial SQ ACHS [facility]; Protocol Last Admin: 04/18/18 21:20 Dose: 4 unit Insulin Detemir (Levemir Vial) 15 units SQ HS [facility] Insulin Detemir (Levemir Vial) 20 units SQ AM [facility] Metoprolol Tartrate (Lopressor -) 25 mg PO BID [facility] Montelukast Sodium (Singulair -) 10 mg PO HS [facility] Last Admin: 04/18/18 21:19 Dose: 10 mg Multivitamins (Total B With C -) 1 each PO DAILY [facility] Last Admin: 04/18/18 10:51 Dose: 1 each Ondansetron HCl (Zofran Injection) 4 mg IVPUSH Q6H PRN PRN Reason: NAUSEA Silver Sulfadiazine (Silvadene -) 1 applic TP DAILY [facility] Last Admin: 04/18/18 10:50 Dose: Not Given Tramadol HCl (Ultram -) 50 mg PO Q6H PRN PRN Reason: PAIN 4-6 Last Admin: 04/18/18 12:10 Dose: 50 mg - Objective Vital Signs: Vital Signs Temperature 36.9 C 04/19/18 02:00 Pulse Rate 86 04/19/18 06:00 Respiratory Rate 20 04/19/18 06:00 Blood Pressure 143/82 04/19/18 06:00 O2 Sat by Pulse Oximetry (%) 95 04/18/18 21:00 Constitutional: Yes: No Distress, Calm, Obese Cardiovascular: Yes: Regular Rate and Rhythm. No: Gallop, Murmur, Rub Respiratory: Yes: Regular, CTA Bilaterally. No: Rales, Rhonchi, Wheezes Gastrointestinal: Yes: Normal Bowel Sounds, Soft. No: Distention, Tenderness Extremities: Yes: Other (BLE bandaged) Edema: No Labs: CBC, BMP 04/19/18 05:30 04/19/18 05:30 INR, PTT INR 1.14 (0.83-1.09) H 04/13/18 14:24 Problem List - Problems (1) Sepsis Code(s): A41.9 - SEPSIS, UNSPECIFIED ORGANISM (2) Cellulitis Code(s): L03.90 - CELLULITIS, UNSPECIFIED Qualifiers: Site of cellulitis: extremity Site of cellulitis of extremity: lower extremity Laterality: left Qualified Code(s): L03.116 - Cellulitis of left lower limb (3) Foot ulcer, left Code(s): L97.529 - NON-PRESSURE CHRONIC ULCER OTH PRT LEFT FOOT W UNSP SEVERITY (4) Diabetes Code(s): E11.9 - TYPE 2 DIABETES MELLITUS WITHOUT COMPLICATIONS Qualifiers: Diabetes mellitus type: type 2 Diabetes mellitus skilled nursing insulin use: with skilled nursing use Diabetes mellitus complication status: with skin complications Diabetes mellitus complication detail: with other skin ulcer Qualified Code(s): E11.622 - Type 2 diabetes mellitus with other skin ulcer; Z79.4 - performance tester (current) use of insulin (5) HTN (hypertension) Code(s): I10 - ESSENTIAL (PRIMARY) HYPERTENSION (6) Leg edema Code(s): R60.0 - LOCALIZED EDEMA (7) Morbid obesity Code(s): E66.01 - MORBID (SEVERE) OBESITY DUE TO EXCESS CALORIES (8) Chronic pain Code(s): G89.29 - OTHER CHRONIC PAIN Qualifiers: Chronic pain type: chronic pain syndrome Qualified Code(s): G89.4 - Chronic pain syndrome (9) NSTEMI (non-ST elevated myocardial infarction) Code(s): I21.4 - NON-ST ELEVATION (NSTEMI) MYOCARDIAL INFARCTION Assessment/Plan (1) Sepsis Assessment/Plan: -cultures resulted -ID following -resolved Code(s): A41.9 - SEPSIS, UNSPECIFIED ORGANISM (2) Cellulitis Assessment/Plan: -appreciate wound care assistance -continue rocephin -ID following, to decide duration of antibiotic Code(s): L03.90 - CELLULITIS, UNSPECIFIED Qualifiers: Site of cellulitis: extremity Site of cellulitis of extremity: lower extremity Laterality: left Qualified Code(s): L03.116 - Cellulitis of left lower limb (3) Foot ulcer, left Assessment/Plan: -as above Code(s): L97.529 - NON-PRESSURE CHRONIC ULCER OTH PRT LEFT FOOT W UNSP SEVERITY (4) Diabetes Assessment/Plan: -glucose higher in the evenings -increase am levemir to 20 units -can discharge back on home lantus dose Code(s): E11.9 - TYPE 2 DIABETES MELLITUS WITHOUT COMPLICATIONS Qualifiers: Diabetes mellitus type: type 2 Diabetes 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 insulin use: with skilled nursing use Diabetes mellitus complication status: with skin complications Diabetes mellitus complication detail: with other skin ulcer Qualified Code(s): E11.622 - Type 2 diabetes mellitus with other skin ulcer; Z79.4 - performance tester (current) use of insulin (5) HTN (hypertension) Assessment/Plan: -elevated -continue clonidine, amlodipine, and losartan/HCTZ -since with NSTEMI, will trial metoprolol as well Code(s): I10 - ESSENTIAL (PRIMARY) HYPERTENSION (6) NSTEMI Assessment/Plan: -continue medical management Code(s): R07.89 - OTHER CHEST PAIN (7) Leg edema Assessment/Plan: -ECHO reviewed, no sign of CHF -leg edema secondary to lymphedema -holding lasix secondary to sepsis Code(s): R60.0 - LOCALIZED EDEMA (8) Morbid obesity Assessment/Plan: -outpatient regimen for weight loss Code(s): E66.01 - MORBID (SEVERE) OBESITY DUE TO EXCESS CALORIES (9) Chronic pain Assessment/Plan: -continue home regimen Code(s): G89.29 - OTHER CHRONIC PAIN Qualifiers: Chronic pain type: chronic pain syndrome Qualified Code(s): G89.4 - Chronic pain syndrome (10) Anemia -stable
[2018-04-19] MEDS ORDERED: METOPROLOL TARTRATE 25 MG TABLET (FP) PO SCH (10:00)
[2018-04-19] MEDS ORDERED: DEXTROSE 5%-WATER 100 ML IVPB ONE (11:15)
[2018-04-19] MEDS: LOSARTAN 50MG/HCTZ 12.5MG 1 TAB (FP) PO SCH (11:22)
[2018-04-19] MEDS: ASCORBIC ACID 250 MG TABLET (FP) PO SCH (11:23)
[2018-04-19] MEDS: amLODIPine BESYLATE 5 MG TABLET (FP) PO SCH ×2 (11:23→22:20)
[2018-04-19] MEDS: ASPIRIN 81 MG CHEWABLE TABLETS PO SCH (11:23)
[2018-04-19] MEDS: CHOLECALCIFEROL (VITAMIN D3) 1,000 UNIT TABLET (FP) PO SCH (11:23)
[2018-04-19] MEDS: VITAMIN B COMPLEX W/C COMBO TABLET (FP) PO SCH (11:23)
[2018-04-19] MEDS: cloNIDine HCL 0.1 MG TABLET PO SCH ×2 (11:23→22:21)
[2018-04-19] MEDS: BUDESONIDE/FORMETEROL FUMARATE 160/4.5 mcg INHALER IH SCH ×2 (11:24→22:24)
[2018-04-19] MEDS: CEFTRIAXONE 2 GM in DEXTROSE 5%-WATER 100 ML IVPB SCH (11:24)
[2018-04-19] MEDS ORDERED: INSULIN (NOVOLOG) ASPART 100 UNITS/ML 10ML VIAL ONE ×2 (11:31→21:14)
[2018-04-19] MEDS: traMADol HCL 50 MG TABLET PO PRN (11:33)
--- NOTE | 2018-04-19 16:01 | PN ---
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 has had mild "weighty" feeling in chest at least once or twice since here in hosp--cannot recall precisely when. none today no sob. no palpitations, syncope had stress test ? when with a new rahul cardio (> 1 yr ago)--normal she thinks no cigs - Current Medication List Current Medications: Active Medications Acetaminophen (Tylenol -) 650 mg PO Q6H PRN PRN Reason: FEVER Last Admin: 04/17/18 21:55 Dose: 650 mg Amlodipine Besylate (Norvasc -) 5 mg PO BID [facility] Last Admin: 04/19/18 11:23 Dose: 5 mg Ascorbic Acid (Vitamin C -) 250 mg PO DAILY [facility] Last Admin: 04/19/18 11:23 Dose: 250 mg Aspirin (Asa -) 81 mg PO DAILY [facility] Last Admin: 04/19/18 11:23 Dose: 81 mg Atorvastatin Calcium (Lipitor -) 40 mg PO HS [facility] Last Admin: 04/18/18 21:26 Dose: 40 mg Budesonide/Formoterol Fumarate (Symbicort 160/4.5mcg -) 2 puff IH BID [facility] Last Admin: 04/19/18 11:24 Dose: 2 puff Cholecalciferol (Vitamin D3 -) 1,000 unit PO DAILY [facility] Last Admin: 04/19/18 11:23 Dose: 1,000 unit Clonidine (Catapres -) 0.2 mg PO BID [facility] Last Admin: 04/19/18 11:23 Dose: 0.2 mg Collagenase (Santyl -) 1 applic TP DAILY [facility]; Protocol Last Admin: 04/18/18 10:50 Dose: Not Given Cyclobenzaprine HCl (Flexeril -) 10 mg PO HS [facility] Last Admin: 04/18/18 21:19 Dose: 10 mg Gabapentin (Neurontin -) 100 mg PO TID [facility] Last Admin: 04/19/18 14:37 Dose: 100 mg Glyburide (Diabeta -) 5 mg PO BIDAC [facility] Last Admin: 04/18/18 17:06 Dose: 5 mg HCTZ/Losartan Potassium (Hyzaar -) 2 tab PO DAILY [facility] Last Admin: 04/19/18 11:22 Dose: 2 tab Ceftriaxone Sodium 2 gm/ (Dextrose) 100 mls @ 100 mls/hr IVPB DAILY [facility]; Protocol Last Admin: 04/19/18 11:24 Dose: 100 mls/hr Insulin Aspart (Novolog Vial Sliding Scale -) 1 vial SQ ACHS [facility]; Protocol Last Admin: 04/19/18 11:39 Dose: 2 unit Insulin Detemir (Levemir Vial) 15 units SQ HS [facility] Insulin Detemir (Levemir Vial) 20 units SQ AM [facility] Metoprolol Tartrate (Lopressor -) 25 mg PO BID [facility] Last Admin: 04/19/18 11:23 Dose: 25 mg Montelukast Sodium (Singulair -) 10 mg PO HS [facility] Last Admin: 04/18/18 21:19 Dose: 10 mg Multivitamins (Total B With C -) 1 each PO DAILY [facility] Last Admin: 04/19/18 11:23 Dose: 1 each Ondansetron HCl (Zofran Injection) 4 mg IVPUSH Q6H PRN PRN Reason: NAUSEA Silver Sulfadiazine (Silvadene -) 1 applic TP DAILY [facility] Last Admin: 04/18/18 10:50 Dose: Not Given Tramadol HCl (Ultram -) 50 mg PO Q6H PRN PRN Reason: PAIN 4-6 Last Admin: 04/19/18 11:33 Dose: 50 mg - Objective Vital Signs: Vital Signs Temperature 98 F 04/19/18 10:00 Pulse Rate 84 04/19/18 10:00 Respiratory Rate 18 04/19/18 10:00 Blood Pressure 150/65 04/19/18 10:00 O2 Sat by Pulse Oximetry (%) 95 04/18/18 21:00 Constitutional: Yes: Well Nourished, No Distress, Calm, Obese Eyes: No: Sclera Icterus HENT: No: Nasal Congestion Cardiovascular: Yes: Regular Rate and Rhythm, S1, S2. No: JVD, Gallop, Murmur Respiratory: Yes: Regular, CTA Bilaterally. No: Accessory Muscle Use, Rales, Wheezes Gastrointestinal: Yes: Normal Bowel Sounds, Soft. No: Tenderness Musculoskeletal: Yes: Other (No kyphosis) Extremities: No: Cold Edema: Yes Integumentary: No: Jaundice Neurological: Yes: Alert, Oriented Psychiatric: No: Agitated Labs: CBC, BMP 04/19/18 05:30 04/19/18 05:30 INR, PTT INR 1.14 (0.83-1.09) H 04/13/18 14:24 Assessment/Plan cxr: clear lungs ecg: sr, nl intervals, nonspecific STs (upsloping STDs), no old echo 03/2018: mild lvh, nl lv/rv, no sig valve path tele: NSR a/p: 67 f hx morbid obesity, venous insuff/edema, chronic leg wounds, dm, htn, anemia, here with fever. NSTEMI: -[id number] pattern to trop (peaked at 1.6), with nonspecific ST abnormalities on admission ECG 04/13 (no old to compare) -also with reported c/o chest pressure at that time -suspect true plaque rupture ACS > sepsis myonecrosis. -normal LV fxn on echo -remains asymptomatic. -treated with ASA, UFH gtt (now off), statin hi intensity (atorva incr'd to 80) -plavix deferred due to acute anemia requiring PRBCs here -rec ischemia eval (pharm MPI vs cath, both reasonable--pt pref) after acute infectious issue resolves. -d/w'd pt risk of missing balanced ischemia (in diabetic) with MPI, and risks of complications of cath but better for definitive risk assessment of underlying anatomy. i rec'd she have cath given insulin-requiring DM raises risk of underlying MVDz but she wishes to consider it further and d/w dtr. -would need to reconsider cath/PCI and prolonged DAPT if evidence of recurrent anemia or occult blood in stool (ordered to be sent) -observe for recurrent sx's of ischemia sepsis, cellulitis: -abx per PMD, ID - vascular consulted, Dr. Osuna venous insuff/le edema: -on lasix at home, held here due to michelle likely from sepsis, Cr stable now. cont holding HTN: -suboptimal BP control here -rec tighter bp targets given possibly s/p recent [facility] -change metoprolol to carvedilol--titrate dose as needed -cont clonidine, amlodipine home regimen -low threshold to add MUKUL or ARB next DM, on insulin: -per hospitalist anemia: -pt has baseline anemia but hgb dropped into 7's 04/14, no obvious bleeding, may just be dilutional from ivfs she got. got prbcs, hgb stable
--- NOTE | 2018-04-19 16:53 | PN ---
Progress Note, Physician History of Present Illness: Awake, alert Temps down Afebrile Reports less leg pain Repeat BC no growth Carrillo catheter in place - Current Medication List Current Medications: Active Medications Acetaminophen (Tylenol -) 650 mg PO Q6H PRN PRN Reason: FEVER Last Admin: 04/17/18 21:55 Dose: 650 mg Amlodipine Besylate (Norvasc -) 5 mg PO BID [facility] Last Admin: 04/19/18 11:23 Dose: 5 mg Ascorbic Acid (Vitamin C -) 250 mg PO DAILY [facility] Last Admin: 04/19/18 11:23 Dose: 250 mg Aspirin (Asa -) 81 mg PO DAILY [facility] Last Admin: 04/19/18 11:23 Dose: 81 mg Atorvastatin Calcium (Lipitor -) 80 mg PO HS [facility] Budesonide/Formoterol Fumarate (Symbicort 160/4.5mcg -) 2 puff IH BID [facility] Last Admin: 04/19/18 11:24 Dose: 2 puff Carvedilol (Coreg -) 12.5 mg PO BID [facility] Cholecalciferol (Vitamin D3 -) 1,000 unit PO DAILY [facility] Last Admin: 04/19/18 11:23 Dose: 1,000 unit Clonidine (Catapres -) 0.2 mg PO BID [facility] Last Admin: 04/19/18 11:23 Dose: 0.2 mg Collagenase (Santyl -) 1 applic TP DAILY [facility]; Protocol Last Admin: 04/18/18 10:50 Dose: Not Given Cyclobenzaprine HCl (Flexeril -) 10 mg PO HS [facility] Last Admin: 04/18/18 21:19 Dose: 10 mg Gabapentin (Neurontin -) 100 mg PO TID [facility] Last Admin: 04/19/18 14:37 Dose: 100 mg Glyburide (Diabeta -) 5 mg PO BIDAC [facility] Last Admin: 04/18/18 17:06 Dose: 5 mg HCTZ/Losartan Potassium (Hyzaar -) 2 tab PO DAILY [facility] Last Admin: 04/19/18 11:22 Dose: 2 tab Ceftriaxone Sodium 2 gm/ (Dextrose) 100 mls @ 100 mls/hr IVPB DAILY [facility]; Protocol Last Admin: 04/19/18 11:24 Dose: 100 mls/hr Insulin Aspart (Novolog Vial Sliding Scale -) 1 vial SQ ACHS [facility]; Protocol Last Admin: 04/19/18 11:39 Dose: 2 unit Insulin Detemir (Levemir Vial) 15 units SQ HS [facility] Insulin Detemir (Levemir Vial) 20 units SQ AM [facility] Montelukast Sodium (Singulair -) 10 mg PO HS [facility] Last Admin: 04/18/18 21:19 Dose: 10 mg Multivitamins (Total B With C -) 1 each PO DAILY [facility] Last Admin: 04/19/18 11:23 Dose: 1 each Ondansetron HCl (Zofran Injection) 4 mg IVPUSH Q6H PRN PRN Reason: NAUSEA Silver Sulfadiazine (Silvadene -) 1 applic TP DAILY [facility] Last Admin: 04/18/18 10:50 Dose: Not Given Tramadol HCl (Ultram -) 50 mg PO Q6H PRN PRN Reason: PAIN 4-6 Last Admin: 04/19/18 11:33 Dose: 50 mg - Objective Vital Signs: Vital Signs Temperature 97.5 F L 04/19/18 16:07 Pulse Rate 86 04/19/18 16:07 Respiratory Rate 22 H 04/19/18 16:07 Blood Pressure 156/66 04/19/18 16:07 O2 Sat by Pulse Oximetry (%) 95 04/18/18 21:00 Constitutional: Yes: No Distress, Obese Cardiovascular: Yes: Regular Rate and Rhythm, S1, S2 Respiratory: Yes: CTA Bilaterally Gastrointestinal: Yes: Normal Bowel Sounds, Soft, Abdomen, Obese Extremities: Yes: Other (dressings in place LE bilaterally) Labs: CBC, BMP 04/19/18 05:30 04/19/18 05:30 INR, PTT INR 1.14 (0.83-1.09) H 04/13/18 14:24 Assessment/Plan Grp B strep bacteremia/ sepsis secondary to wound source Infected chronic leg ulcers UTI Morbid obesity Pt would not allow me to remove dressings today Continue ceftriaxone. Will need 14d course IV ceftriaxone for grp B strep bacteremia Local wound care
[2018-04-19] MEDS: glyBURIDE 5 MG TABLET (UD) PO SCH (17:06)
[2018-04-19] MEDS ORDERED: ATORVASTATIN CA 80 MG TABLET (FP) PO SCH (22:00)
[2018-04-19] MEDS ORDERED: INSULIN (LEVEMIR) 100 UNITS/ML UNITS SQ SCH (22:00)
[2018-04-19] MEDS: MONTELUKAST NA 10 MG TABLET PO SCH (22:20)
[2018-04-19] MEDS: CYCLOBENZAPRINE HCL 10 MG TABLET (FP) PO SCH (22:20)
[2018-04-19] MEDS: CARVEDILOL 12.5 MG TABLET (FP) PO SCH (22:22)
[2018-04-20] MEDS: GABAPENTIN 100 MG CAPSULE (FP) PO SCH ×2 (06:16→13:50)
[2018-04-20] MEDS: glyBURIDE 5 MG TABLET (UD) PO SCH ×2 (06:16→17:18)
[2018-04-20] MEDS: INSULIN SLIDING SCALE (NOVOLOG) 1 VIAL SQ SCH ×4 (06:17→17:18)
[2018-04-20 06:23] LABS: BASO % 0.8 % (0-2.0); EOS % 1.7 % (0-4.5); HEMOGLOBIN 8.2 GM/dL (10.7-15.3); LYMPH % 10.3 % (8-40); MCH 26.5 pg (25.7-33.7); MCHC 32.7 g/dl (32.0-36.0); MEAN PLT VOLUME 7.4 fl (7.5-11.1); MONO % 7.8 % (3.8-10.2); NEUT % 79.4 % (42.8-82.8); PLATELET COUNT 395 K/MM3 (134-434); RBC 3.08 M/mm3 (3.60-5.2); RDW 15.9 % (11.6-15.6); WHITE BLOOD COUNT 11.4 K/mm3 (4.0-10.0)
[2018-04-20] MEDS ORDERED: INSULIN (LEVEMIR) 100 UNITS/ML UNITS SQ SCH ×2 (07:00→22:00)
[2018-04-20 07:17] LABS: ANION GAP 8 MMOL/L (8-16); BLOOD UREA NITROGEN 32 mg/dL (7-18); CALCIUM 8.1 mg/dL (8.5-10.1); CHLORIDE 103 mmol/L (98-107); CO2 24 mmol/L (21-32); CREATININE 1.2 mg/dL (0.55-1.3); GLUCOSE,RANDOM 182 mg/dL (74-106); MAGNESIUM 2.3 mg/dL (1.8-2.4); PHOSPHOROUS 4.3 mg/dL (2.5-4.9); POTASSIUM 4.6 mmol/L (3.5-5.1); SODIUM 136 mmol/L (136-145)
--- NOTE | 2018-04-20 07:47 | PN ---
Progress Note, Physician Chief Complaint: Comfortably sleeping , no c/o chest pain still C/O Left leg pain - Current Medication List Current Medications: Active Medications Acetaminophen (Tylenol -) 650 mg PO Q6H PRN PRN Reason: FEVER Last Admin: 04/17/18 21:55 Dose: 650 mg Amlodipine Besylate (Norvasc -) 5 mg PO BID [facility] Last Admin: 04/19/18 22:20 Dose: 5 mg Ascorbic Acid (Vitamin C -) 250 mg PO DAILY [facility] Last Admin: 04/19/18 11:23 Dose: 250 mg Aspirin (Asa -) 81 mg PO DAILY [facility] Last Admin: 04/19/18 11:23 Dose: 81 mg Atorvastatin Calcium (Lipitor -) 80 mg PO HS [facility] Last Admin: 04/19/18 22:20 Dose: 80 mg Budesonide/Formoterol Fumarate (Symbicort 160/4.5mcg -) 2 puff IH BID [facility] Last Admin: 04/19/18 22:24 Dose: 2 puff Carvedilol (Coreg -) 12.5 mg PO BID [facility] Last Admin: 04/19/18 22:22 Dose: 12.5 mg Cholecalciferol (Vitamin D3 -) 1,000 unit PO DAILY [facility] Last Admin: 04/19/18 11:23 Dose: 1,000 unit Clonidine (Catapres -) 0.2 mg PO BID [facility] Last Admin: 04/19/18 22:21 Dose: 0.2 mg Collagenase (Santyl -) 1 applic TP DAILY [facility]; Protocol Last Admin: 04/18/18 10:50 Dose: Not Given Cyclobenzaprine HCl (Flexeril -) 10 mg PO HS [facility] Last Admin: 04/19/18 22:20 Dose: 10 mg Gabapentin (Neurontin -) 100 mg PO TID [facility] Last Admin: 04/20/18 06:16 Dose: 100 mg Glyburide (Diabeta -) 5 mg PO BIDAC [facility] Last Admin: 04/20/18 06:16 Dose: 5 mg HCTZ/Losartan Potassium (Hyzaar -) 2 tab PO DAILY [facility] Last Admin: 04/19/18 11:22 Dose: 2 tab Ceftriaxone Sodium 2 gm/ (Dextrose) 100 mls @ 100 mls/hr IVPB DAILY [facility]; Protocol Last Admin: 04/19/18 11:24 Dose: 100 mls/hr Insulin Aspart (Novolog Vial Sliding Scale -) 1 vial SQ ACHS [facility]; Protocol Last Admin: 04/20/18 06:17 Dose: 2 unit Insulin Detemir (Levemir Vial) 15 units SQ HS [facility] Last Admin: 04/19/18 22:23 Dose: 15 units Insulin Detemir (Levemir Vial) 20 units SQ AM [facility] Last Admin: 04/20/18 06:18 Dose: 20 units Montelukast Sodium (Singulair -) 10 mg PO HS [facility] Last Admin: 04/19/18 22:20 Dose: 10 mg Multivitamins (Total B With C -) 1 each PO DAILY [facility] Last Admin: 04/19/18 11:23 Dose: 1 each Ondansetron HCl (Zofran Injection) 4 mg IVPUSH Q6H PRN PRN Reason: NAUSEA Silver Sulfadiazine (Silvadene -) 1 applic TP DAILY [facility] Last Admin: 04/18/18 10:50 Dose: Not Given Tramadol HCl (Ultram -) 50 mg PO Q6H PRN PRN Reason: PAIN 4-6 Last Admin: 04/19/18 11:33 Dose: 50 mg - Objective Vital Signs: Vital Signs Temperature 98.4 F 04/20/18 02:00 Pulse Rate 65 04/20/18 06:00 Respiratory Rate 18 04/20/18 06:00 Blood Pressure 142/61 04/20/18 06:00 O2 Sat by Pulse Oximetry (%) 97 04/19/18 21:00 Elderly F not in distress c/o body pain HEENT: MM moist , mild anemia, PERRLA EOMI NECK: No JVd No Bruit CHEST: Minimal basal crepts CVS: S1S2 R no m/g/r ABD: Obese non tender BS +, Last BM yesterday EXT & BACK: Extensive edema, foul smelling ulcers Left > Rt Venous stasis changes 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 Non focal DERM: B/L infected wounds Labs: CBC, BMP 04/20/18 05:30 04/20/18 05:30 INR, PTT INR 1.14 (0.83-1.09) H 04/13/18 14:24 Problem List - Problems (1) Cellulitis Assessment/Plan: Admitted with Extensive B/L LE cellulitis present with elevated TWBC Lactic acid and fever suggestive of Sepsis grew poly now on Ceftriaxone for Strept Group B in Blood and Enterobacter Colace in urine rpt cultures are -ve , ID recommended total 2 wks of abx Code(s): L03.90 - CELLULITIS, UNSPECIFIED Qualifiers: Site of cellulitis: extremity Site of cellulitis of extremity: lower extremity Laterality: left Qualified Code(s): L03.116 - Cellulitis of left lower limb (2) Sepsis Assessment/Plan: Blood Grew Strept Group B and U grew Enterobacter Colace on Ceftriaxone need total 2 wks abx afebrile TWBC is 11.4 Code(s): A41.9 - SEPSIS, UNSPECIFIED ORGANISM (3) NSTEMI (non-ST elevated myocardial infarction) Assessment/Plan: Elevated Troponin I multiple CAD risk factors most likely Demand Ischemia /ACS on B Blockers statin , ASA , plavix deverred for anemia off Heparin normal ECHO , remained CP free, not sure about previous stress test, evaluated by Cardiology consult recommended Stress test/Cath once Sepsis is treated and patient may be as outpatient will discuss with Cardiology consult. Code(s): I21.4 - NON-ST ELEVATION (NSTEMI) MYOCARDIAL INFARCTION (4) Diabetes Assessment/Plan: T2DM with neuropathy and nephropathy on Levimir 20 am an GS 196 will increase PM Levimir to 18 units Code(s): E11.9 - TYPE 2 DIABETES MELLITUS WITHOUT COMPLICATIONS Qualifiers: Diabetes mellitus type: type 2 Diabetes mellitus emt intermediate insulin use: with long-term use Diabetes mellitus complication status: with skin complications Diabetes mellitus complication detail: with other skin ulcer Qualified Code(s): E11.622 - Type 2 diabetes mellitus with other skin ulcer; Z79.4 - prison (current) use of insulin (5) Anemia Assessment/Plan: Chronic H/H is table Code(s): D64.9 - ANEMIA, UNSPECIFIED (6) HTN (hypertension) Assessment/Plan: Now Well controlled cont all home meds Code(s): I10 - ESSENTIAL (PRIMARY) HYPERTENSION (7) Morbid obesity Assessment/Plan: Morbidly obese BMI 53 will F/U nutritional assessment as out patient on DC Code(s): E66.01 - MORBID (SEVERE) OBESITY DUE TO EXCESS CALORIES (8) Chronic pain Assessment/Plan: cont current management Code(s): G89.29 - OTHER CHRONIC PAIN Qualifiers: Chronic pain type: chronic pain syndrome Qualified Code(s): G89.4 - Chronic pain syndrome (9) COPD (chronic obstructive pulmonary disease) Assessment/Plan: On symbicort cont same at present stable Code(s): J44.9 - CHRONIC OBSTRUCTIVE PULMONARY DISEASE, UNSPECIFIED (10) Chronic pain Assessment/Plan: Gabapentin and Tramadol Code(s): G89.29 - OTHER CHRONIC PAIN (11) Venous stasis ulcers of both lower extremities Assessment/Plan: cont wound care Code(s): I83.019 - VARICOSE VEINS OF RIGHT LOWER EXTREMITY W ULCER OF UNSP SITE ; I83.029 - VARICOSE VEINS OF LEFT LOWER EXTREMITY W ULCER OF UNSP SITE; L97.919 - NON-PRS CHRONIC ULC UNSP PRT OF R LOW LEG W UNSP SEVERITY; L97.929 - NON-PRS CHRONIC ULC UNSP PRT OF L LOW LEG W UNSP SEVERITY
[2018-04-20] MEDS: CHOLECALCIFEROL (VITAMIN D3) 1,000 UNIT TABLET (FP) PO SCH (11:06)
[2018-04-20] MEDS: ASPIRIN 81 MG CHEWABLE TABLETS PO SCH (11:06)
[2018-04-20] MEDS: cloNIDine HCL 0.1 MG TABLET PO SCH (11:06)
[2018-04-20] MEDS ORDERED: DEXTROSE 5%-WATER 100 ML IVPB ONE (11:13)
[2018-04-20] MEDS: CARVEDILOL 12.5 MG TABLET (FP) PO SCH (11:14)
[2018-04-20] MEDS: amLODIPine BESYLATE 5 MG TABLET (FP) PO SCH (11:14)
[2018-04-20] MEDS ORDERED: PT OWN MED DRAWER 7, Y5N ONE ×2 (11:22→17:16)
[2018-04-20 11:23] LABS: ACANTHOCYTES 0; ANISOCYTOSIS 0; HELMET CELLS 0; HOWELL-JOLLY BODIES 0; MACROCYTOSIS 0; OVALOCYTE 0; PLATELET ESTIMATE NORMAL; ROULEAU 0; SICKELED CELLS 0; TARGET CELLS 0; TEAR DROP CELLS 0; TOXIC GRANULATION 0
[2018-04-20] MEDS: CEFTRIAXONE 2 GM in DEXTROSE 5%-WATER 100 ML IVPB SCH (11:36)
[2018-04-20] MEDS: LOSARTAN 50MG/HCTZ 12.5MG 1 TAB (FP) PO SCH (11:40)
[2018-04-20] MEDS ORDERED: PICC LINE 8 ML FLUSH PROTOCOL IVPUSH PRN (11:40)
[2018-04-20] MEDS: traMADol HCL 50 MG TABLET PO PRN (11:42)
[2018-04-20] MEDS: ASCORBIC ACID 250 MG TABLET (FP) PO SCH (11:43)
[2018-04-20] MEDS: VITAMIN B COMPLEX W/C COMBO TABLET (FP) PO SCH (11:44)
[2018-04-20] MEDS: BUDESONIDE/FORMETEROL FUMARATE 160/4.5 mcg INHALER IH SCH (11:46)
--- NOTE | 2018-04-20 12:25 | PN ---
Progress Note (short form) - Note Progress Note: Chief Complaint: leg wound History of Present Illness: no cp, palps, dizzy, lightheadedness, dyspnea - Current Medication List Current Medications Acetaminophen (Tylenol -) 650 mg PO Q6H PRN PRN Reason: FEVER Last Admin: 04/17/18 21:55 Dose: 650 mg Amlodipine Besylate (Norvasc -) 5 mg PO BID [facility] Last Admin: 04/20/18 11:14 Dose: 5 mg Ascorbic Acid (Vitamin C -) 250 mg PO DAILY [facility] Last Admin: 04/20/18 11:43 Dose: 250 mg Aspirin (Asa -) 81 mg PO DAILY [facility] Last Admin: 04/20/18 11:06 Dose: 81 mg Atorvastatin Calcium (Lipitor -) 80 mg PO HS [facility] Last Admin: 04/19/18 22:20 Dose: 80 mg Budesonide/Formoterol Fumarate (Symbicort 160/4.5mcg -) 2 puff IH BID [facility] Last Admin: 04/20/18 11:46 Dose: 2 puff Carvedilol (Coreg -) 12.5 mg PO BID [facility] Last Admin: 04/20/18 11:14 Dose: 12.5 mg Cholecalciferol (Vitamin D3 -) 1,000 unit PO DAILY [facility] Last Admin: 04/20/18 11:06 Dose: 1,000 unit Clonidine (Catapres -) 0.2 mg PO BID [facility] Last Admin: 04/20/18 11:06 Dose: 0.2 mg Collagenase (Santyl -) 1 applic TP DAILY [facility]; Protocol Last Admin: 04/18/18 10:50 Dose: Not Given Cyclobenzaprine HCl (Flexeril -) 10 mg PO HS [facility] Last Admin: 04/19/18 22:20 Dose: 10 mg Gabapentin (Neurontin -) 100 mg PO TID [facility] Last Admin: 04/20/18 06:16 Dose: 100 mg Glyburide (Diabeta -) 5 mg PO BIDAC [facility] Last Admin: 04/20/18 06:16 Dose: 5 mg HCTZ/Losartan Potassium (Hyzaar -) 2 tab PO DAILY [facility] Last Admin: 04/20/18 11:40 Dose: 2 tab IV Flush (Picc Line Flush) 8 ml IVPUSH PRN PRN PRN Reason: Protocol Ceftriaxone Sodium 2 gm/ (Dextrose) 100 mls @ 100 mls/hr IVPB DAILY [facility]; Protocol Last Admin: 04/20/18 11:36 Dose: 100 mls/hr Insulin Aspart (Novolog Vial Sliding Scale -) 1 vial SQ ACHS [facility]; Protocol Last Admin: 04/20/18 06:17 Dose: 2 unit Insulin Detemir (Levemir Vial) 20 units SQ AM [facility] Last Admin: 04/20/18 06:18 Dose: 20 units Insulin Detemir (Levemir Vial) 18 units SQ HS [facility] Montelukast Sodium (Singulair -) 10 mg PO HS [facility] Last Admin: 04/19/18 22:20 Dose: 10 mg Multivitamins (Total B With C -) 1 each PO DAILY [facility] Last Admin: 04/20/18 11:44 Dose: 1 each Ondansetron HCl (Zofran Injection) 4 mg IVPUSH Q6H PRN PRN Reason: NAUSEA Silver Sulfadiazine (Silvadene -) 1 applic TP DAILY [facility] Last Admin: 04/18/18 10:50 Dose: Not Given Tramadol HCl (Ultram -) 50 mg PO Q6H PRN PRN Reason: PAIN 4-6 Last Admin: 04/20/18 11:42 Dose: 50 mg - Objective Vital Signs: Vital Signs Period Temp Pulse Resp BP Sys/Petersen Pulse Ox Last 24 Hr 97.5 F-98.8 F 65-86 18-22 142-156/47-69 96-97 Constitutional: Yes: Well Nourished, No Distress, Calm, Obese Eyes: No: Sclera Icterus HENT: No: Nasal Congestion Cardiovascular: Yes: Regular Rate and Rhythm, S1, S2. No: JVD, Gallop, Murmur Respiratory: Yes: Regular, CTA Bilaterally. No: Accessory Muscle Use, Rales, Wheezes Gastrointestinal: Yes: Normal Bowel Sounds, Soft. No: Tenderness Musculoskeletal: Yes: Other (No kyphosis) Extremities: No: Cold Edema: Yes Integumentary: No: Jaundice Neurological: Yes: Alert, Oriented Psychiatric: No: Agitated Assessment/Plan cxr: clear lungs ecg: sr, nl intervals, nonspecific STs (upsloping STDs), no old echo 03/2018: mild lvh, nl lv/rv, no sig valve path tele: NSR a/p: 67 f hx morbid obesity, venous insuff/edema, chronic leg wounds, dm, htn, anemia, here with fever. NSTEMI: -[id number]-[id number]-[id number] pattern to trop (peaked at 1.6), with nonspecific ST abnormalities on admission ECG 04/13 (no old to compare) -also with reported c/o chest pressure at that time -suspect true plaque rupture ACS > sepsis myonecrosis. -normal LV fxn on echo -remains asymptomatic. -treated with ASA, UFH gtt (now off), statin hi intensity (atorva incr'd to 80) -plavix deferred due to acute anemia requiring PRBCs here -d/w'd pt risk of missing balanced ischemia (in diabetic) with MPI, and risks of complications of cath but better for definitive risk assessment of underlying anatomy. i rec'd she have cath given insulin-requiring DM raises risk of underlying MVDz but she wishes to consider it further and d/w dtr. -would need to reconsider cath/PCI and prolonged DAPT if evidence of recurrent anemia or occult blood in stool (ordered to be sent) -observe for recurrent sx's of ischemia -rec ischemia eval (pharm MPI vs cath, both reasonable--pt pref) after acute infectious issue resolves - will be getting PICC line and course of IV abx, plan to do cardiac cath after abx completed, H/H stable. discussed with patient , she is agreeable. sepsis, cellulitis: -abx per PMD, ID - vascular consulted, Dr. Osuna venous insuff/le edema: -on lasix at home, held here due to michelle likely from sepsis, Cr stable now. cont holding HTN: -suboptimal BP control here -rec tighter bp targets given possibly s/p recent NE -change metoprolol to carvedilol--titrate dose as needed -cont clonidine, amlodipine home regimen -low threshold to add MUKUL or ARB next DM, on insulin: -per hospitalist anemia: -pt has baseline anemia but hgb dropped into 7's 04/14, no obvious bleeding, may just be dilutional from ivfs she got. got prbcs, hgb stable
--- NOTE | 2018-04-20 13:23 | DS ---
Physical Examination Vital Signs: Vital Signs Temperature 98.5 F 04/20/18 08:57 Pulse Rate 73 04/20/18 08:57 Respiratory Rate 18 04/20/18 08:57 Blood Pressure 147/69 04/20/18 08:57 O2 Sat by Pulse Oximetry (%) 96 04/20/18 08:57 Findings/Remarks: Elderly F not in distress denies any complaints HEENT: Mm moist, anemia, PERRLA, EOMI NECK: No JVD No Bruit CHEST: Minimal Basal crepts CVS: S1S2 R no m/g/r ABD: Obese, no distention BS + EXT: B/L Edema feet, , venous stasis ulcer in dressing [employer]: AO X3 grossly non focal Labs: CBC, BMP 04/20/18 05:30 04/20/18 05:30 Discharge Summary Reason For Visit: CELLULITIS Current Active Problems Cellulitis (Acute) Sepsis (Acute) Anemia (Acute) UTI (acute) MINNIE (acute) CKD stage 3 NSTEMI (non-ST elevated myocardial infarction) (Acute) COPD (chronic obstructive pulmonary disease) (Acute) NSTEMI (non-ST elevated myocardial infarction) (Acute) Chronic pain (Acute) T2 Diabetes Mellitus HTN (hypertension) Morbid obesity (BMI > 50) Venous stasis ulcers of both lower extremities Other Procedures: Blodd transfusion Hospital Course: 67 yrs old F with multiple Medical Co-morbidities H/O T2DM< HTN, CKD stage 3, Morbidly obese, Hypercholesterolemia, chronic Venous stasis ulcers B/L LE, F/U at wound care Ctr present with worsening LE wound with fever elevated TWBC, worsening renal functions, UTI, during the course of Hospitalization Troponin I was elevated peaked > 6 no chest pain or acute ST T changes treated with heparin infusion B Blockers Coreg 12.5 mg BID and Lipitor 80 mg, patient sepsis gradually improved initially put on Vancomycin and Zosyn Blood culture Grew Group B strepto Cocci and Urine Grew Enterococci Colace switched to Ceftriaxone , ID recommenced total 2 wks of abx will complete on 04/27/2018 ( Ceftriaxone 1 gm Daily) , Cardiology recommended out patient Cath/Stress test once completes sepsis treatment. Condition: Stable - Instructions Referrals: Flavio Khan MD [Staff Physician] - 1 Month Guanaco Castano MD, MD [Primary Care Provider] - 1 Month Suly Cleary MD [Staff Physician] - 1 Month Disposition: [facility] - Home Medications Comprehensive Discharge Medication List: Ambulatory Orders Aspirin [Baby Aspirin] 81 mg PO DAILY 10/29/11 Montelukast Na [Singulair -] 10 mg PO HS 10/29/11 Gabapentin 1 cap PO TID 07/25/13 Amlodipine Besylate [Norvasc -] 5 mg PO BID 09/11/13 Ascorbic Acid [Vitamin C] 250 mg PO DAILY 09/11/13 Cholecalciferol (Vitamin D3) [Vitamin D] 1,000 unit PO DAILY 09/11/13 Docosahexanoic Acid/Epa [Fish Oil Softgel] 1 each PO DAILY 09/11/13 Glyburide 5 mg PO BID 09/11/13 Tramadol HCl 50 mg PO QID PRN 09/11/13 Vitamin B Complex 1 each PO DAILY 09/11/13 oxyCODONE HCL [Roxicodone -] 5 mg PO Q6H PRN 09/11/13 Cyclobenzaprine HCl 10 mg PO HS 10/23/14 Acetaminophen [Tylenol .Regular Strength -] 650 mg PO Q6H PRN tablet 04/20/18 Atorvastatin Ca [Lipitor] 80 mg PO HS tablet 04/20/18 Budesonide/Formeterol Fumarate [SYMBICORT 160/4.5mcg -] 2 puff IH BID inhaler 04/20/18 Carvedilol [Coreg -] 12.5 mg PO BID tablet 04/20/18 Ceftriaxone [Rocephin -] 2 gm IVPB DAILY vial 04/20/18 Collagenase Clostridium Hist. [Santyl -] 1 applic TP DAILY tube 04/20/18 Insulin (Levemir) [Levemir Vial] 18 units SQ HS units 04/20/18 Insulin (Levemir) [Levemir Vial] 20 units SQ AM units 04/20/18 Insulin Sliding Scale [Novolog Vial Sliding Scale -] 1 vial SQ ACHS units 04/20 Losartan 50Mg/Hctz 12.5MG [Hyzaar -] 2 tab PO DAILY tablet 04/20/18 Picc Line Flush [Picc Line Flush -] 8 ml IVPUSH PRN PRN ml 04/20/18 Silver Sulfadiazine 1% Top Cr [Silvadene -] 1 applic TP DAILY jar 04/20/18 cloNIDine HCL [Catapres -] 0.2 mg PO BID tablet 04/20/18
[2018-04-20] MEDS ORDERED: DOCUSATE SODIUM 100 MG CAPSULE (FP) PO PRN (14:09)
[2018-04-20 20:05] VITALS: BP 148/72; PULSE 76; TEMP 99
[2018-04-20] MEDS ORDERED: FERROUS SO4 325 MG TABLET (FP) PO SCH (22:00)
[2018-04-21] MEDS ORDERED: PANTOPRAZOLE 20 MG TABLET (FP) PO SCH (10:00)
[2018-04-21] MEDS ORDERED: ENOXAPARIN NA (PORCINE) 40 MG/0.4 ML DISP.SYRIN SQ SCH (10:00)
== END 2018-04-20 19:00 | DRG 871 ==
LOC: JER 13:32 → JERBED 20:08 → J4W 04-15 17:00
PROVIDERS: ADMIT Internal Medicine; ATTEND Internal Medicine
PROC: 30233N1 Transfusion of Nonautologous Red Blood Cells into Peripheral Vein, Percutaneous Approach (ICD-10-PCS; 2018-04-14)
PROC: 02HV33Z Insertion of Infusion Device into Superior Vena Cava, Percutaneous Approach (ICD-10-PCS; principal; 2018-04-20)
PROC: B518ZZA Fluoroscopy of Superior Vena Cava, Guidance (ICD-10-PCS; 2018-04-20)
DX: A40.1 Sepsis due to streptococcus, group B (principal); I21.4 Non-ST elevation (NSTEMI) myocardial infarction; L97.818 Non-pressure chronic ulcer of other part of right lower leg with other specified severity; L97.828 Non-pressure chronic ulcer of other part of left lower leg with other specified severity; L03.116 Cellulitis of left lower limb; L03.115 Cellulitis of right lower limb; Z68.43 Body mass index [BMI] 50.0-59.9, adult; N39.0 Urinary tract infection, site not specified; L97.428 Non-pressure chronic ulcer of left heel and midfoot with other specified severity; E78.5 Hyperlipidemia, unspecified; I83.018 Varicose veins of right lower extremity with ulcer other part of lower leg; I83.028 Varicose veins of left lower extremity with ulcer other part of lower leg; R07.89 Other chest pain; R60.0 Localized edema; G89.4 Chronic pain syndrome; E66.01 Morbid (severe) obesity due to excess calories; D64.9 Anemia, unspecified; E11.51 Type 2 diabetes mellitus with diabetic peripheral angiopathy without gangrene; B96.89 Other specified bacterial agents as the cause of diseases classified elsewhere; J44.9 Chronic obstructive pulmonary disease, unspecified; E11.622 Type 2 diabetes mellitus with other skin ulcer; I12.9 Hypertensive chronic kidney disease with stage 1 through stage 4 chronic kidney disease, or unspecified chronic kidney disease; E11.22 Type 2 diabetes mellitus with diabetic chronic kidney disease; N18.3 Chronic kidney disease, stage 3 (moderate); Z89.422 Acquired absence of other left toe(s); Z79.4 Long term (current) use of insulin
CPT/HCPCS: 36415; 36430; 36569; 71045-TC-FY; 73590-TC-LT-FY; 73590-TC-RT-FY; 73630-TC-LT; 73630-TC-RT-FY; 77001-TC-FY; 80048; 80053; 81003; 81015; 82550; 82553; 82803; 82962; 83036; 83605; 83735; 84100; 84484; 85025; 85027; 85610; 85651; 85730; 86140; 86850; 86900; 86901; 86922; 87040; 87086; 87186; 87804; 90686; 93005; 93010; 93306-TC; 97116-GP; 97162-GP; 99285-25; C1751; G0008; G0277; G0463-25; J0131; J0735; J1644; J7030; P9038; P9058